=== PATIENT | female | born 1945 | race Caucasian/White ===

== ENCOUNTER 2020-09-11 10:08 | Emergency (ER) | payer MEDICARE ==
[~2020-09-11] VITALS: Ht 157 cm; Wt 90.7 kg
[~2020-09-11 10:08] MED LIST: AC325T PO; ACHYD1T PO; ASP325T PO; ASP81CT PO; ATOR80TA PO; CALC-149 PO; CALTRATE 600 +1 EACH PO; CEPH250C PO; CLOP75TA PO; CPR500T PO; DIPH25TA82 PO; DIPH50CA33 PO; DULO60CA6 PO; ESZO2TAB4 PO; FLC150T PO; FRSM40T PO; FURO20TA4 PO; FURO40TA4 PO; HYDR-2997 PO; HYDR118S10 PO; IBAN150T5 PO; INSU100C SC; INSU100V6 SC; METF500T8 PO; MULT-974 PO; Magnesium Oxide PO; NITR-65 PO; NITR100C PO; OMEG1CAP51 PO; OXYC-12 PO; POTA10CA43 PO; POTA20TA15 PO; PREN-93 PO; PREN1TAB39 PO
--- NOTE | 2020-09-11 11:10 | ED Lower Extremity ---
General Chief Complaint: Trauma-Non Activation Stated Complaint: FALL Nursing Triage Note: PT PRESENTS TO ED FROM HOME WITH COMPLAINTS OF L HIP PAIN AFTER FALLING WHEN SHE TRIPPED WITH HER WALKER GETTING UP TO USE THE RESTROOM. PT REPORTS SHE DID NOT HIT HER HEAD OR HAVE LOC. PT DENIES ANY OTHER PAIN. Nursing Sepsis Screen: No Definite Risk Source: patient, EMS Exam Limitations: no limitations History of Present Illness Date Seen by Provider: Sep 11, 2020 Time Seen by Provider: 10:10 Initial Comments Patient is a 74-year-old female who presents to the emergency department today with a chief complaint of left hip pain after a mechanical trip and fall. Patient states that she was walking with her walker and had an episode where the walker went one way and she went the other and she went down on her knees and finally her left hip. Patient states she did not hit her head or have any loss of consciousness. She complains of pain to the lateral aspect of her left hip. She is able to move and lay on that left side however. She denies any numbness tingling or weakness in her extremities. No recent illnesses. All other review of systems reviewed and negative except as stated. Location Injury Occurred: HOME RESIDENCE Onset: just prior to arrival, this morning Severity: mild Pain/Injury Location: left hip Method of Injury: fell Modifying Factors: Improves With Immobilization; Worse With Movement Allergies and Home Medications Allergies Coded Allergies: morphine (Verified Allergy, Mild, 07/12/14) Sulfa (Sulfonamide Antibiotics) (Verified Allergy, Unknown, 03/15/06) Home Medications Atorvastatin Calcium 80 Mg Tablet, 80 MG PO HS, (Reported) Calcium Carbonate/Vitamin D3 1 Each Tab.chew, 1 EACH PO DAILY, (Reported) Diphenhydramine Hcl 25 Mg Tablet, 100 MG PO HS, (Reported) TAKE 4 (25MG) CAPSULES Furosemide 40 Mg Tablet, 40 MG PO DAILY, (Reported) Hydrocodone Bit/Acetaminophen 1 Tab Tablet, 1-2 TAB PO Q4H MAY TAKE 1 OR 2 TABLETS BY MOUTH EVERY 4 HRS NEEDED FOR PAIN. DO NOT TAKE THIS PRESCRIPTION AND YOUR HOME MED HYDROCODONE/ACETAMINOPHEN. THEY ARE THE SAME MEDICATION Prescribed by: MISSY MCGHEE on 07/31/14 1051 Hydrocodone/Acetaminophen 1 Each Tablet, 1 EACH PO BID PRN for PAIN, (Reported) Insulin Glargine,Hum.rec.anlog 100 Unit/1 Ml Vial, 17 UNITS SC HS, (Reported) Insulin Lispro 100 Unit/1 Ml Cartridge, 20 UNIT SC TID, (Reported) Metformin Hcl 500 Mg Tab.sr.24h, 1,000 EACH PO BID, (Reported) TAKES 2 (500MG) TABLETS Nitrofurantoin/Nitrofuran Mac 100 Mg Capsule, 1 EACH PO BID TAKE ONE CAPSULE BY MOUTH TWICE A DAY. USE ALL OF THIS ANTIBIOTIC PRESCRIBED. Prescribed by: MISSY MCGHEE on 07/31/14 1051 Potassium Chloride 20 Meq Tab.prt.sr, 20 MEQ PO DAILY, (Reported) Vit/Fe Fumarate/Fa 1 Each Tablet, 1 TAB PO DAILY, (Reported) [Magnesium Oxide] 400 MG TAB, 400 MG PO DAILY Prescribed by: MYRA PADILLA on 07/20/14 0936 Patient Home Medication List Home Medication List Reviewed: Yes Review of Systems Constitutional: see HPI EENTM: no symptoms reported Respiratory: no symptoms reported Cardiovascular: no symptoms reported Gastrointestinal: no symptoms reported Genitourinary: no symptoms reported Musculoskeletal: joint pain (Left hip) Skin: no symptoms reported Psychiatric/Neurological: No Symptoms Reported All Other Systems Reviewed Negative Unless Noted: Yes Past Wqgrrfg-Pkbldf-Mouoaz Hx Patient Social History Alcohol Use: Denies Use Smoking Status: Former Smoker Former Smoker, Quit: Jul 11, 2006 Recent Infectious Disease Expo: No Recent Hopitalizations: Yes (UTI'S AND MAYBE PNEUMONIA) Immunizations Up To Date Tetanus Booster (TDap): More than 5yrs PED Vaccines UTD: No Date of Pneumonia Vaccine: Jul 12, 2011 Seasonal Allergies Seasonal Allergies: No Past Medical History Surgeries: Yes (left knee, RENAL STENTS PLACEMENT, ESWL) Coronary Stent, Orthopedic Respiratory: No Cardiac: Yes Coronary Artery Disease, Heart Attack, High Cholesterol, Hypertension Neurological: No Reproductive Disorders: No Sexually Transmitted Disease: No Kidney Stones Gastrointestinal: No Musculoskeletal: Yes Arthritis Endocrine: Yes Diabetes, Non-Insulin dep Cancer: No Psychosocial: No Integumentary: No Blood Disorders: No Adverse Reaction/Blood Tranf: No Family Medical History Cardiovascular disease 19 FATHER (AND LUNG CANCER) Physical Exam Vital Signs Vital Signs - First Documented 09/11/20 10:10 Temp 36.2 Pulse 102 Resp 18 B/P (MAP) 146/73 (97) Pulse Ox 96 Capillary Refill : Less Than 3 Seconds Height, Weight, BMI Height: 5'2.00" Weight: 215lbs. oz. 97.311467te; 36.00 BMI Method:Stated General Appearance: WD/WN, no apparent distress Neck: non-tender, full range of motion Cardiovascular: regular rate, rhythm Respiratory: lungs clear, normal breath sounds, no respiratory distress Gastrointestinal: non tender, soft Hips: left hip soft tissue tenderness (Mild tenderness to palpation along the margin of the left hip) Legs: bilateral leg non-tender, bilateral leg normal inspection, bilateral leg normal range of motion, bilateral leg no evidence of injury Knees: bilateral knee non-tender, bilateral knee normal inspection, bilateral knee normal range of motion, bilateral knee no evidence of injury Ankles: bilateral ankle non-tender, bilateral ankle normal inspection, bilat eral ankle normal range of motion, bilateral ankle no evidence of injury Feet: bilateral foot non-tender, bilateral foot normal inspection, bilateral foot normal range of motion, bilateral foot no evidence of injury Neurologic/Tendon: normal sensation, normal motor functions, normal tendon functions Neurologic/Psychiatric: alert, normal mood/affect, oriented x 3 Skin: normal color, warm/dry Progress/Results/Core Measures Results/Orders My Orders Orders - SCOTT BARFIELD MD Pelvis With Left Hip 2-3 Views (09/11/20 11:09) Vital Signs/I&O 09/11/20 09/11/20 10:10 10:20 Temp 36.2 36.2 Pulse 102 102 Resp 18 16 B/P (MAP) 146/73 (97) 146/73 (97) Pulse Ox 96 96 Blood Pressure Mean: 97 Progress Progress Note : Time: 12:06 Progress Note Patient reevaluated, resting comfortably lying on her left side. No further complaints of injury or pain. Patient x-rays have been reviewed, no evidence of fracture or dislocation of the left hip. Patient has been advised of her x-ray results. All questions are sought and answered. Patient is stable for discharge. Diagnostic Imaging Diagonstic Imaging: Xray Plain Films/CT/US/NM/MRI: pelvis Comments [facility] [place], [place] NAME: CARLITO DELCID I [facility] REC#: [id number] PT STATUS: REG ER : 1945 PHYSICIAN: SCOTT BARFIELD MD ADMIT DATE: 09/11/20/ER Draft Date of Exam:09/11/20 PELVIS WITH LEFT HIP 2-3 VIEWS INDICATION: Left hip pain, fall. TIME OF EXAM: 11:41 AM AP view of the pelvis and 2 views of the left hip were obtained. FINDINGS: Femoroacetabular alignment is normal. Both femoral heads and necks appear to be intact. Rami appear intact. No definite fractures are seen. IMPRESSION: No acute bony abnormality is detected. Dictated on workstation # [id number] Dict: 09/11/20 1147 Trans: 09/11/20 1149 [id number] Interpreted by: CYRUS BOWSER MD Electronically signed by: Departure Impression Primary Impression: Left hip pain Disposition: HOME, SELF-CARE Condition: Stable Departure-Patient Inst. Decision time for Depature: 12:09 Patient Instructions: Hip Pain Add. Discharge Instructions: Take lamb-[id number]-[id number] Tylenol and/or ibuprofen as needed for pain. You can apply an ice pack to your left hip and alternate with heat if need be for pain relief as well. Please follow-up with your primary care provider -keep your appointment as scheduled. Return to the emergency department if you have any worsening complaints of pain or new emergent complaints. All discharge instructions reviewed with patient and/or family. Voiced understanding. SCOTT BARFIELD MD Sep 11, 2020 11:09
--- NOTE | 2020-09-11 11:50 | Diagnostic Imaging Report ---
INDICATION: Left hip pain, fall. TIME OF EXAM: 11:41 AM AP view of the pelvis and 2 views of the left hip were obtained. FINDINGS: Femoroacetabular alignment is normal. Both femoral heads and necks appear to be intact. Rami appear intact. No definite fractures are seen. IMPRESSION: No acute bony abnormality is detected. Dictated by: Dictated on workstation # [id number]
[2020-09-11 12:58] VITALS: BP 167/85
== END 2020-09-11 12:57 | disposition home or self-care (01) ==
LOC: EDUNIT# 10:08 → ER 10:09
DX: M25.552 Pain in left hip (principal); I25.2 Old myocardial infarction; E78.00 Pure hypercholesterolemia, unspecified; E11.9 Type 2 diabetes mellitus without complications; Z88.5 Allergy status to narcotic agent; Z88.2 Allergy status to sulfonamides; Z87.891 Personal history of nicotine dependence; Z95.5 Presence of coronary angioplasty implant and graft; Z80.1 Family history of malignant neoplasm of trachea, bronchus and lung; Z79.84 Long term (current) use of oral hypoglycemic drugs

== ENCOUNTER 2020-09-12 15:39 | Inpatient (IN) | payer MEDICARE ==
[~2020-09-12] VITALS: Ht 157 cm; Wt 84.9 kg
[2020-09-12 16:26] LABS: BASOPHILS % (AUTO) 0 % (0-10); EOSINOPHILS # (AUTO) 0.1 10^3/uL (0.0-0.3); EOSINOPHILS % (AUTO) 1 % (0-10); HEMATOCRIT 39 % (35-52); HEMOGLOBIN 12.7 g/dL (11.5-16.0); LYMPHOCYTES % (AUTO) 26 % (12-44); MEAN CORPUSCULAR HEMOGLOBIN 28 pg (25-34); MEAN CORPUSCULAR HGB CONC 32 g/dL (32-36); MEAN CORPUSCULAR VOLUME 88 fL (80-99); MEAN PLATELET VOLUME 10.1 fL (9.0-12.2); MONOCYTES % (AUTO) 9 % (0-12); NEUTROPHILS # (AUTO) 7.3 X 10^3 (1.8-7.8); NEUTROPHILS % (AUTO) 64 % (42-75); PLATELET COUNT 295 10^3/uL (130-400); WHITE BLOOD COUNT 11.5 10^3/uL (4.3-11.0)
--- NOTE | 2020-09-12 16:35 | Diagnostic Imaging Report ---
INDICATION: Left knee pain. EXAMINATION: Three views of the left knee were obtained. FINDINGS: Narrowing of the medial tibiofemoral joint space with some osteophytes forming at the margins of the articular surface. The lateral joint space is relatively well-preserved as is the patellofemoral joint. 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 Dictated by: Dictated on workstation # [id number]
[2020-09-12 16:37] LABS: POTASSIUM 4.1 MMOL/L (3.6-5.0)
[2020-09-12 16:38] LABS: CALCIUM 9.5 MG/DL (8.5-10.1)
[2020-09-12 16:43] LABS: CREATININE SERUM 1.27 MG/DL (0.60-1.30)
[2020-09-12 16:45] LABS: MAGNESIUM 1.7 MG/DL (1.6-2.4); URIC ACID 6.7 MG/DL (2.6-7.2)
[2020-09-12 16:47] LABS: ERYTHROCYTE SEDIMENTATION RATE 25 MM/HR (0-30)
[2020-09-12] MEDS ORDERED: TRIAMCINOLONE ACET (KENALOG-40) 40 MG/ML 1 ML VIAL IA ONE (17:00)
[2020-09-12] MEDS ORDERED: LIDOCAINE 1% INJ 20 ML 20 ML VIAL INJ ONE (17:00)
--- NOTE | 2020-09-12 17:25 | ED Lower Extremity ---
General Chief Complaint: Lower Extremity Stated Complaint: MOBILITY ISSUES Nursing Triage Note: PT TO ROOM 6 VIA EMS STRETCHER. PT WAS SEEN YESTERDAY FOR FALL X2. PT C/O MOBILITY ISSUES AND LLE/KNEE PAIN. STATES SHE JUST CAN'T GET LEG TO MOVE WELL AND IT IS PAINFUL. Nursing Sepsis Screen: No Definite Risk Source: patient Exam Limitations: no limitations History of Present Illness Date Seen by Provider: Sep 12, 2020 Time Seen by Provider: 15:40 Initial Comments This 74-year-old woman presents to the emergency room with mobility issues after having a fall yesterday. She fell on her left hip and was seen in the emergency room. X-ray of the left hip was unremarkable. Today she complains of her "knees giving out". She was unable to get from her walker to bed and called EMS. She reports history of having numerous aspirations of knee effusion by Dr. Phillips in the past. She reports he also performed steroid injections with the aspirations. She has a small bruise on the superior aspect of her left knee. She has pain with range of motion. The knee appears swollen and warm anteriorly. She takes a full aspirin daily and Plavix. Allergies and Home Medications Allergies Coded Allergies: morphine (Verified Allergy, Mild, 07/12/14) Sulfa (Sulfonamide Antibiotics) (Verified Allergy, Unknown, 03/15/06) Home Medications Atorvastatin Calcium 80 Mg Tablet, 80 MG PO HS, (Reported) Calcium Carbonate/Vitamin D3 1 Each Tab.chew, 1 EACH PO DAILY, (Reported) Diphenhydramine Hcl 25 Mg Tablet, 100 MG PO HS, (Reported) TAKE 4 (25MG) CAPSULES Furosemide 40 Mg Tablet, 40 MG PO DAILY, (Reported) Hydrocodone Bit/Acetaminophen 1 Tab Tablet, 1-2 TAB PO Q4H MAY TAKE 1 OR 2 TABLETS BY MOUTH EVERY 4 HRS NEEDED FOR PAIN. DO NOT TAKE THIS PRESCRIPTION AND YOUR HOME MED HYDROCODONE/ACETAMINOPHEN. THEY ARE THE SAME MEDICATION Prescribed by: MISSY MCGHEE on 07/31/14 1051 Hydrocodone/Acetaminophen 1 Each Tablet, 1 EACH PO BID PRN for PAIN, (Reported) Insulin Glargine,Hum.rec.anlog 100 Unit/1 Ml Vial, 17 UNITS SC HS, (Reported) Insulin Lispro 100 Unit/1 Ml Cartridge, 20 UNIT SC TID, (Reported) Metformin Hcl 500 Mg Tab.sr.24h, 1,000 EACH PO BID, (Reported) TAKES 2 (500MG) TABLETS Nitrofurantoin/Nitrofuran Mac 100 Mg Capsule, 1 EACH PO BID TAKE ONE CAPSULE BY MOUTH TWICE A DAY. USE ALL OF THIS ANTIBIOTIC PRESCRIBED. Prescribed by: MISSY MCGHEE on 07/31/14 1051 Potassium Chloride 20 Meq Tab.prt.sr, 20 MEQ PO DAILY, (Reported) Vit/Fe Fumarate/Fa 1 Each Tablet, 1 TAB PO DAILY, (Reported) [Magnesium Oxide] 400 MG TAB, 400 MG PO DAILY Prescribed by: MYRA PADILLA on 07/20/14 0915 Patient Home Medication List Home Medication List Reviewed: Yes Review of Systems Constitutional: no symptoms reported EENTM: no symptoms reported Respiratory: no symptoms reported Cardiovascular: no symptoms reported Gastrointestinal: no symptoms reported Genitourinary: no symptoms reported : No Musculoskeletal: see HPI Skin: no symptoms reported Psychiatric/Neurological: No Symptoms Reported Past Qshpbfd-Prlgkc-Chvdyi Hx Past Med/Social Hx: Reviewed Nursing Past Med/Soc Hx Patient Social History Alcohol Use: Denies Use Smoking Status: Never a Smoker Former Smoker, Quit: Jul 11, 2006 Recent Infectious Disease Expo: No Recent Hopitalizations: Yes (UTI'S AND MAYBE PNEUMONIA) Immunizations Up To Date Tetanus Booster (TDap): More than 5yrs PED Vaccines UTD: No Date of Pneumonia Vaccine: Jul 12, 2011 Seasonal Allergies Seasonal Allergies: No Past Medical History Surgeries: Yes (left knee, RENAL STENTS PLACEMENT, ESWL) Coronary Stent, Orthopedic Respiratory: No Cardiac: Yes Coronary Artery Disease, Heart Attack, High Cholesterol, Hypertension Neurological: No Reproductive Disorders: No Sexually Transmitted Disease: No Genitourinary: Yes Bladder Infection, Kidney Stones Gastrointestinal: No Musculoskeletal: Yes Arthritis Endocrine: Yes Diabetes, Non-Insulin dep HEENT: No Cancer: No Psychosocial: No Integumentary: No Blood Disorders: No Adverse Reaction/Blood Tranf: No Family Medical History Cardiovascular disease 19 FATHER (AND LUNG CANCER) Physical Exam Vital Signs Vital Signs - First Documented 09/12/20 15:40 Temp 36.1 Pulse 107 Resp 22 B/P (MAP) 152/80 (104) Pulse Ox 95 O2 Delivery Room Air Capillary Refill : Less Than 3 Seconds Height, Weight, BMI Height: 5'2.00" Weight: 215lbs. oz. 97.133917qe; 40.00 BMI Method:Stated General Appearance: WD/WN, no apparent distress HEENT: PERRL/EOMI, normal ENT inspection Neck: normal inspection Cardiovascular: regular rate, rhythm, no edema, no murmur Respiratory: lungs clear, normal breath sounds, no respiratory distress, no accessory muscle use Gastrointestinal: non tender, soft Back: normal inspection Hips: left hip non-tender, left hip normal inspection, left hip normal range of motion, left hip no evidence of injury Legs: left leg non-tender, left leg normal inspection, left leg no evidence of injury Knees: left knee bone tenderness, left knee ecchymosis, left knee joint effusion, left knee pain, left knee swelling, left knee other (pain with ROM) Ankles: left ankle non-tender, left ankle normal inspection, left ankle normal range of motion, left ankle no evidence of injury Neurologic/Tendon: normal sensation, normal motor functions Neurologic/Psychiatric: scale adjuster II-XII nml as tested, alert, normal mood/affect, oriented x 3, motor weakness (generalized) Skin: normal color, warm/dry Progress/Results/Core Measures Results/Orders Lab Results Laboratory Tests Test 09/12/20 16:16 09/12/20 17:00 Range/Units White Blood Count 11.5 H 4.3-11.0 10^3/uL Red Blood Count 4.48 3.80-5.11 10^6/uL Hemoglobin 12.7 11.5-16.0 g/dL Hematocrit 39 35-52 % Mean Corpuscular Volume 88 80-99 fL Mean Corpuscular Hemoglobin 28 25-34 pg Mean Corpuscular Hemoglobin Concent 32 32-36 g/dL Red Cell Distribution Width 14.6 H 10.0-14.5 % Platelet Count 295 130-400 10^3/uL Mean Platelet Volume 10.1 9.0-12.2 fL Immature Granulocyte % (Auto) 0 % Neutrophils (%) (Auto) 64 42-75 % Lymphocytes (%) (Auto) 26 12-44 % Monocytes (%) (Auto) 9 0-12 % Eosinophils (%) (Auto) 1 0-10 % Basophils (%) (Auto) 0 0-10 % Neutrophils # (Auto) 7.3 1.8-7.8 X 10^3 Lymphocytes # (Auto) 3.0 1.0-4.0 X 10^3 Monocytes # (Auto) 1.0 0.0-1.0 X 10^3 Eosinophils # (Auto) 0.1 0.0-0.3 10^3/uL Basophils # (Auto) 0.0 0.0-0.1 10^3/uL Immature Granulocyte # (Auto) 0.0 0.0-0.1 10^3/uL Erythrocyte Sedimentation Rate 25 0-30 MM/HR Sodium Level 140 135-145 MMOL/L Potassium Level 4.1 3.6-5.0 MMOL/L Chloride Level 104 98-107 MMOL/L Carbon Dioxide Level 21 21-32 MMOL/L Anion Gap 15 H 5-14 MMOL/L Blood Urea Nitrogen 21 H 7-18 MG/DL Creatinine 1.27 0.60-1.30 MG/DL Estimat Glomerular Filtration Rate 41 BUN/Creatinine Ratio 17 Glucose Level 239 H 70-105 MG/DL Uric Acid 6.7 2.6-7.2 MG/DL Calcium Level 9.5 8.5-10.1 MG/DL Magnesium Level 1.7 1.6-2.4 MG/DL C-Reactive Protein High Sensitivity 13.08 H 0.00-0.50 MG/DL Urine Color YELLOW Urine Clarity CLOUDY Urine pH 5.0 5-9 Urine Specific [place] >=1.030 1.016-1.022 Urine Protein TRACE H NEGATIVE Urine Glucose (UA) 2+ H NEGATIVE Urine Ketones TRACE H NEGATIVE Urine Nitrite NEGATIVE NEGATIVE Urine Bilirubin NEGATIVE NEGATIVE Urine Urobilinogen 0.2 < = 1.0 MG/DL Urine Leukocyte Esterase TRACE H NEGATIVE Urine RBC (Auto) 1+ H NEGATIVE Urine RBC 2-5 H /HPF Urine WBC 5-10 H /HPF Urine Crystals PRESENT H /LPF Urine Amorphous Sediment MOD JENNIFER URATES H /LPF Urine Bacteria LARGE H /HPF Urine Casts NONE /LPF Urine Mucus NEGATIVE /LPF Urine Culture Indicated YES My Orders Orders - MARILYN GASPAR MD Basic Metabolic Panel (09/12/20 15:48) Cbc With Automated Diff (09/12/20 15:48) Hs C Reactive Protein (09/12/20 15:48) Magnesium (09/12/20 15:48) Erythrocyte Sedimentation Rate (09/12/20 15:48) Ed Iv/Invasive Line Start (09/12/20 15:48) Uric Acid (09/12/20 15:48) Knee, Left, 3 Views (09/12/20 15:48) Triamcinolone Acetonide Im (Kenalog-40) (09/12/20 17:00) Lidocaine 1% Inj 20 Ml (Xylocaine 1% Inj (09/12/20 17:00) Hydrocodone/Apap 5/325 Tablet (Lortab 5 (09/12/20 17:30) Ua Culture If Indicated (09/12/20 17:25) Urine Culture (09/12/20 17:00) Ceftriaxone For Iv Use (Rocephin For I (09/12/20 18:15) Ns Iv 1000 Ml (Sodium Chloride 0.9%) (09/12/20 18:15) Medications Given in ED Current Medications Medications Dose Ordered Sig/Sahra Route Start Time Stop Time Status Last Admin Dose Admin Acetaminophen/ Hydrocodone Bitart 1 tab ONCE ONCE PO 09/12/20 17:30 09/12/20 17:31 DC 09/12/20 17:37 1 TAB Ceftriaxone Sodium 1000 mg/ Sterile Water 10 ml @ 200 mls/hr ONCE ONCE IV 09/12/20 18:15 09/12/20 18:17 DC 09/12/20 18:26 200 MLS/HR Lidocaine HCl 20 ml ONCE ONCE INJ 09/12/20 17:00 09/12/20 17:01 DC 09/12/20 17:29 4 ML Vital Signs/I&O 09/12/20 15:40 Temp 36.1 Pulse 107 Resp 22 B/P (MAP) 152/80 (104) Pulse Ox 95 O2 Delivery Room Air Blood Pressure Mean: 104 Progress Progress Note #1: Time: 17:27 Progress Note Labs and x-ray were obtained. X-ray revealed no fractures or dislocations. CRP was elevated and uric acid was normal. Attempt was made at aspiration of the left knee joint using the superior lateral approach. Informed consent was obtained. Skin was prepped with alcohol, anesthetized with lidocaine, and then prepped with Betadine. Using an 18-gauge needle in the joint space was approached. No synovial fluid could be aspirated. A small amount of thick clot was aspirated bleeding this provider to believe the swelling, heat, and pain of the left knee is due to hemarthrosis. Aspiration was also attempted by Grady Whitfield NP. Urine specimen appeared cloudy and may be the source of her increased CRP. Hydrocodone was administered for pain. Progress Note #2: Time: 19:09 Progress Note Despite improvement in pain after hydrocodone, patient is still not able to satisfactorily bear weight and ambulate with a walker. She required 2 person assist to get out of bed and back into bed. She also seems to be getting a little bit confused as we get into the evening hours. It is evident that she cannot safely return home, especially with dual antiplatelet therapy on board. She reports her is self-sufficient and caring for himself but he cannot help her transfer or lift her. Admission is now necessary. She does not appear to need a trauma consultation as there are no serious injuries that require trauma surgeon evaluation at this time. Rocephin was given for treatment of urinary tract infection. Urine specific gravity was high and ketones were present in the urine. Therefore a liter of IV fluid was administered. Diagnostic Imaging Diagonstic Imaging: Xray Plain Films/CT/US/NM/MRI: knee Comments Left knee x-ray viewed by me and report reviewed. See report below: NAME: CARLITO DELCID I [facility] REC#: [id number] PT STATUS: REG ER : 1945 PHYSICIAN: MARILYN GASPAR MD ADMIT DATE: 09/12/20/ER Signed Date of Exam:09/12/20 KNEE, LEFT, 3 VIEWS INDICATION: Left knee pain. EXAMINATION: Three views of the left knee were obtained. FINDINGS: Narrowing of the medial tibiofemoral joint space with some osteophytes forming at the margins of the articular surface. The lateral joint space is relatively well-preserved as is the patellofemoral joint. 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 Dictated by: Dictated on workstation # [id number] Dict: 09/12/20 1609 Trans: 09/12/201652 PJE [id number] Interpreted by: ZHANE DE LA PAZ MD Electronically signed by: ZHANE DE LA PAZ MD 09/12/20 [id number] Departure Communication (Admissions) Time/Spoke to Admitting Phy: 19:00 Dr. Fajardo Impression Primary Impression: Urinary tract infection Qualified Codes: N39.0 - Urinary tract infection, site not specified Additional Impressions: Hemarthrosis, left knee Multiple falls Generalized weakness Altered mental status Qualified Codes: R41.82 - Altered mental status, unspecified Disposition: ADMITTED INPATIENT Condition: Stable Admissions Decision to Admit Reason: Admit from ER (General) Decision to Admit/Date: Sep 12, 2020 Time/Decision to Admit Time: 18:55 Copy Copies To 1: AGATHA HITCHCOCK JOSHUA T MD Sep 12, 2020 17:25
[2020-09-12] MEDS ORDERED: HYDROcodone/APAP 5 MG/325 MG (LORTAB) TAB PO ONE (17:30)
[2020-09-12 17:37] LABS: BILIRUBIN,URINE NEGATIVE (NEGATIVE); CLARITY,URINE CLOUDY; COLOR,URINE YELLOW; GLUCOSE, URINE (UA) 2+ (NEGATIVE); KETONES,URINE TRACE (NEGATIVE); LEUKOCYTE ESTERASE ,URINE TRACE (NEGATIVE); NITRITE,URINE NEGATIVE (NEGATIVE); PROTEIN,URINE TRACE (NEGATIVE)
[2020-09-12 18:05] LABS: AMORPHOUS SEDIMENT,UR MOD AMOR URATES /LPF; BACTERIA,URINE LARGE /HPF
[2020-09-12] MEDS ORDERED: cefTRIAXone FOR IV USE 1,000 MG in WATER (STERILE) FOR INJECTION 10 ML IV ONE (18:15)
[2020-09-12] MEDS ORDERED: NS IV 1000 ML 1,000 ML IV SCH (18:15)
--- NOTE | 2020-09-12 19:05 | NUR ---
PT ASKED TO CALL AND NOTIFY HER THAT SHE WAS GOING TO BE ADMITTED. SPOKE WITH THE AND MADE HIM AWARE OF HER ADMISSION.
--- NOTE | 2020-09-12 19:30 | NUR ---
CARLITO DELCID I admitted to room 414-1, with an admitting diagnosis of UTI, Hemarthrosis, Multiple falls, weakness, on 09/12/20 from ER via bed, accompanied by ED staff. CARLITO DELCID I introduced to surroundings, call light, bed controls, phone, TV, temperature control, lights, meal times, smoking policy, visitor policy, side rail policy, bathrooms and showers. Patient Rights given to patient in the handbook. CARLITO DELCID verbalizes understanding that [facility] is not responsible for the loss or damage to any personal effects or valuables that are kept in the patients possession during their hospitalization.
[2020-09-12 19:45] VITALS: BP 155/85
[2020-09-12] MEDS ORDERED: CATHETER FLUSH 10 ML SYR IV PRN (20:00)
[2020-09-12] MEDS: CATHETER FLUSH 10 ML SYR IV SCH (20:52)
[2020-09-13 00:45] VITALS: BP 148/83
[2020-09-13] MEDS: HYDROcodone/APAP 5 MG/325 MG (LORTAB) TAB PO PRN ×3 (02:57→19:47)
[2020-09-13] MEDS ORDERED: CLOP75TA28 PO (03:11)
[2020-09-13 04:00] VITALS: BP 100/50
[2020-09-13] MEDS: CATHETER FLUSH 10 ML SYR IV SCH ×3 (05:06→21:12)
--- NOTE | 2020-09-13 06:25 | NUR ---
Attempted to call (Andrea) to verify home medications, but there was no answer.
[2020-09-13] MEDS ORDERED: ATOR40TA PO (06:29)
[2020-09-13 06:32] LABS: POTASSIUM 4.4 MMOL/L (3.6-5.0)
[2020-09-13 06:34] LABS: CALCIUM 9.1 MG/DL (8.5-10.1)
[2020-09-13 06:38] LABS: CREATININE SERUM 1.21 MG/DL (0.60-1.30)
[2020-09-13 08:00] VITALS: BP 106/65
[2020-09-13] MEDS ORDERED: CLOPIDOGREL 75 MG (PLAVIX) TABLET PO SCH (09:00)
--- NOTE | 2020-09-13 09:15 | NUR ---
LORTAB PO FOR PAIN.
[2020-09-13] MEDS: metFORMIN 500 MG (GLUCOPHAGE) TAB PO SCH ×2 (09:18→18:33)
[2020-09-13] MEDS: MELOXICAM 7.5 MG (MOBIC) TABLET PO SCH (09:19)
[2020-09-13] MEDS: inSUlin ASPART (NovoLOG) 1 UNIT/0.01 ML (CHARGE PER UNIT) SC SCH ×3 (11:08→21:12)
[2020-09-13 11:52] VITALS: BP 123/56
--- NOTE | 2020-09-13 12:12 | History & Physical-Hospitalist ---
History of Present Illness HPI/Chief Complaint This 74-year-old woman presents to the emergency room with mobility issues after having a fall yesterday. She fell on her left hip and was seen in the emergency room. X-ray of the left hip was unremarkable. Today she complains of her "knees giving out". She was unable to get from her walker to bed and called EMS. She reports history of having numerous aspirations of knee effusion by Dr. Phillips in the past. She reports he also performed steroid injections with the aspirations. She has a small bruise on the superior aspect of her left knee. She has pain with range of motion. The knee appears swollen and warm anteriorly. She takes a full aspirin daily and Plavix Upon my arrival the morning the patient was feeling little bit better. She reported that she did not have any more pain then her normal arthritis pain in the right knee prior to her fall nor does she think it was warm or hot prior to her fall. She denies night sweats chills or fever. She had a depressed affect. 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 Date Seen 09/13/20 Time Seen by a Provider: 07:30 Attending Physician Ifrah Cobb MD PCP No,Local Physician Referring Physician Date of Admission Sep 12, 2020 at 19:08 Home Medications & Allergies Home Medications Reviewed patient Home Medication Reconciliation performed by pharmacy medication reconciliations database software technician and/or nursing. Patients Allergies have been reviewed. Allergies Allergies Coded Allergies morphine (Verified Allergy, Mild, 07/12/14) Sulfa (Sulfonamide Antibiotics) (Verified Allergy, Unknown, 03/15/06) Past Clgxiyt-Jwdcmq-Olbtwv Hx Past Med/Social Hx: Reviewed Nursing Past Med/Soc Hx, Reviewed and Corrections made Patient Social History Alcohol Use: Denies Use Recreational Drug Use: No Smoking Status: Never a Smoker Former Smoker, Quit: Jul 11, 2006 Recent Foreign Travel: No Contact w/other who traveled: No Recent Hopitalizations: Yes (UTI'S AND MAYBE PNEUMONIA) Recent Infectious Disease Expo: No Immunizations Up To Date Tetanus Booster (TDap): More than 5yrs Pediatric: No Date of Pneumonia Vaccine: Jul 12, 2011 Date of Influenza Vaccine: Apr 22, 2021 Seasonal Allergies Seasonal Allergies: No Past Medical History Surgeries: Coronary Stent, Orthopedic Cardiac: Coronary Artery Disease, Heart Attack, High Cholesterol, Hypertension Reproductive: No Sexually Transmitted Disease: No Genitourinary: Bladder Infection, Kidney Stones Musculoskeletal: Arthritis Endocrine: Diabetes, Non-Insulin dep History of Blood Disorders: No Adverse Reaction to Blood Polanco: No Family History Cardiovascular disease 19 FATHER (AND LUNG CANCER) Review of Systems Constitutional: see HPI Physical Exam Physical Exam Vital Signs Vital Signs - First Documented 09/12/20 15:40 Temp 36.1 Pulse 107 Resp 22 B/P (MAP) 152/80 (104) Pulse Ox 95 O2 Delivery Room Air Capillary Refill : Less Than 3 SecondsLess Than 3 Seconds Height, Weight, BMI Height: 5'2.00" Weight: 215lbs. oz. [id number]; 34.44 BMI Method:Stated General Appearance: No Apparent Distress, Obese Respiratory: Chest Non Tender, Lungs Clear, Normal Breath Sounds, No Accessory Muscle Use, No Respiratory Distress Cardiovascular: Regular Rate, Rhythm, No Edema, No Gallop, No JVD, No Murmur, Normal Peripheral Pulses Gastrointestinal: Normal Bowel Sounds, No Organomegaly, No Pulsatile Mass, Non Tender, Soft Extremity: Other (Right knee reveals mild warmth minimal swelling no ecchymosis or erythema only mild tenderness over the lateral and medial joint line. No cyanosis clubbing or edema distal dorsalis pedis pulses 2+ and symmetrical) Neurologic/Psychiatric: Alert, Oriented x3, Depressed Affect Results Results/Procedures Labs Laboratory Tests 09/12/20 16:16 09/13/20 05:50 Patient resulted labs reviewed. Assessment/Plan Admission Diagnosis 1. Urinary tract infection growing gram-negative rods continue Rocephin no evidence for sepsis at this time. 2. 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 Per emergency room physician 2 attempts at joint aspiration when he felt he was clearly in the joint only led to a very small clot being withdrawn septic joint much less likely especially in light of lack of inflammatory change this morning. We will continue to monitor however and continue Rocephin. 3. Poorly controlled type 2 diabetes I suspect aggravated by depression. Patient reports the loss of a child which may be the underlying factor. We will discuss this in more detail with the patient tomorrow. Will initiate 15 units of Levemir tonight and for now sliding scale insulin with 1500-calorie ADA diet. Admission Status: Inpatient Order (span 2 midnights) Reason for Inpatient Admission: See admission diagnosis IFRAH COBB MD Sep 13, 2020 12:12
--- NOTE | 2020-09-13 12:35 | Physical Therapy Evaluation ---
PT Evaluation-General Medical Diagnosis Admission Date Sep 12, 2020 at 19:08 Medical Diagnosis: hemarthrosis, UTI, multiple falls Onset Date: Sep 12, 2020 Therapy Diagnosis Therapy Diagnosis: decreased functional mobility Height/Weight Height (Feet): 5 Height (Inches): 2.00 Weight (Pounds): 215 Precautions Precautions/Isolations: Fall Prevention, Standard Precautions Weight Bear Status Right Lower Extremity: Right Full Weight Bearing Left Lower Extremity: Left Weight Bearing/Tolerated Referral Physician: Tana Reason for Referral: Evaluation/Treatment Medical History Pertinent Medical History: Arthritis, CAD, DM, NM Additional Medical History (L) knee Sx, renal stent placement, ESWL, coronary stent, high cholesterol, bladder infection, kidney stones Current History Pt reports a fall in the [place] on 09/11/2020. To ER on 09/11/2020 with (L) hip x-ray unremarkable. Reports she fell again on her stairs after discharge home due to "knee giving out". Presented again to ER on 09/12/2020 with mobility c/o after the falls. (L) knee x-ray revealed moderate degenerative changes in medial compartment. Does present with edema. Reports history of (L) knee injections and having fluid removed from (L) knee. Reviewed History: Yes Social History Home: Single Level Current Living Status: Spouse Entry Into Home: Stairs With Railing PT Steps Into Home: 2 Prior Prior Level of Function SCALE: Activities may be completed with or without assistive devices. 1-Cwzcpzwkbh-sppffdk completes the activity by him/herself with no assistance from a helper. 5-Set-up or Clean-up Assistance-helper sets up or cleans up; patient completes activity. [place] assists only prior to or following the activity. 4-Supervision or Touching Assistance-helper provides verbal cues and/or touching/steadying and/or contact guard assistance as patient completes ac tivity. Assistance may be provided throughout the activity or intermittently. 3-Partial/Moderate Assistance-helper does LESS THAN HALF the effort. [place] lifts, holds or supports trunk or limbs, but provides less than half the effort. 2-Substantial/Maximal Assistance-helper does MORE THAN HALF the effort. [place] lifts or holds trunk or limbs and provides more than half the effort. 1-Fnqkkfdun-uldduo does ALL the effort. Patient does none of the effort to complete the activity. Or, the assistance of 2 or more helpers is required for the patient to complete the activity. If activity was not attempted, code reason: 7-Patient Refused. 9-Not Applicable-not attempted and the patient did not perform the activity before the current illness, exacerbation or injury. 10-Not Attempted due to Environmental Limitations-(lack of equipment, weather restraints, etc.). 88-Not Attempted due to Medical Conditions or Safety Concerns. Bed Mobility: 6 Transfers (B,C,W/C): 6 Gait: 6 Stairs: 6 Indoor Mobility (Ambulation): Independent Stairs: Independent Prior Devices Use: Walker Prior Device Use: 4WW inside and outside the home PT Evaluation-Current Subjective Pt in bed, agreeable. Reports 9/10 (L) knee pain. Pt moving very slowly, repeatedly stating, "Wait, give me a minute". Objective Patient Orientation: Person, Place, Time, Situation ROM/Strength ROM Upper Extremities Grossly WFL for mobility ROM Lower Extremities Grossly WFL for transfers. Guards motion in (L) knee Strength Upper Extremities Grossly 3+/5 Strength Lower Extremities Grossly 3/5, no resistance applied due to guarding, high pain rating. Integumentary/Posture Integumentary See nurses' notes Posture Kyphotic Sensory Vision: Functional Hearing: Functional Transfers Lying to Sitting/Side of Bed(Q: 3 Sit to Stand (QC): 3 Chair/Huj-ja-Tybng Xfer(QC): 4 Sit<->stand mod A x 1 to FWW with max encouragement, VCS. Pt attempts to stop and return to sit mid transfer. Once up, Pt leans forearms on FWW, max VCS for upright posture and to appropriately utilize FWW to decrease WB on (L) LE. Small, shuffling steps to chair. VCS but only min A x for safety. Up in chair with chair alarm activated, NA notified of mobility status. Gait Does the Patient Walk?: Yes Mode of Locomotion: Walk Anticipated Mode of Locomotion: Walk Walk 10 feet (QC): 7 Walk 50 ft with 2 Turns(QC): 7 Walk 150 ft (QC): 7 Walking 10ft/uneven surface-QC: 7 Distance: 2 Gait Assistive Device: FWW Comments/Gait Description bed->Chair Transfer Wheelchair Training Does the Pt Use a Wheelchair?: No Type of Wheelchair: N/A Balance Sitting Static: Normal Sitting Dynamic: Good Standing Static: Fair Standing Dynamic: Fair Treatment Transfer training with FWW. Up in chair with alarm activated. Assessment/Needs Pt would benefit from skilled PT to increase functional strength and (I) with functional mobility. Pt significantly self-limits due to knee pain. Rehab Potential: Fair PT Short Term Goals Short Term Goals Time Frame: Sep 17, 2020 Roll Left & Right: 6 Sit to lyin Lying to sitting on side of be: 6 Sit to stand: 6 PT Truck Caterer Goals Truck Caterer Goals PT Truck Caterer Goals Time Frame: Sep 27, 2020 Roll Left & Right (QC): 6 Sit to Lying (QC): 6 Lying-Sitting on Side/Bed(QC): 6 Sit to Stand (QC): 6 Chair/Ozs-vj-Kwctk Xfer(QC): 6 Toilet Transfer (QC): 6 Car Transfer (QC): 4 Does the Patient Walk: No and Walking Goal IS indicated Walk 10 feet (QC): 6 Walk 50ft with 2 Turns (QC): 6 Walk 150 ft (QC): 6 Walking 10ft on Uneven Surface: 6 1 Step (curb) (QC): 4 4 Steps (QC): 4 12 Steps (QC): 9 Does the Pt use WC or Scooter?: No Type: N/A Type: N/A PT LTGs established to allow return home. PT Plan Problem List Problem List: Activity Tolerance, Functional Strength, Safety, Balance, Gait, Transfer, Bed Mobility, ROM Treatment/Plan Treatment Plan: Continue Plan of Care Treatment Plan: Bed Mobility, Education, Functional Activity [place], Functional Strength, Gait, Safety, Therapeutic Exercise, Transfers Treatment Duration: Sep 27, 2020 Frequency: 6 times per week Estimated Hrs Per Day: .25 hour per day Patient and/or Family Agrees t: Yes Safety Risks/Education Patient Education: Transfer Techniques Teaching Recipient: Patient Teaching Methods: Discussion Response to Teaching: Reinforcement Needed Discharge Recommendations Barriers to Progress Pt self limits due to knee pain Time/GCodes Time In: 826 Time Out: 903 Total Billed Treatment Time: 37 Total Billed Treatment 1, EVHIGH x 20', FA x 17' PILO DIAZ DPDwight Sep 13, 2020 12:35
[2020-09-13 16:15] VITALS: BP 110/55
[2020-09-13] MEDS: cefTRIAXone FOR IV USE 1,000 MG in WATER (STERILE) FOR INJECTION 10 ML IV SCH (18:33)
[2020-09-13 20:05] VITALS: BP 113/55
[2020-09-13] MEDS ORDERED: LANTUS 15 UNIT SQ SCH (21:00)
[2020-09-14] VITALS (7 sets, daily range): BP systolic 88–131; BP diastolic 54–64
[2020-09-14] MEDS: inSUlin ASPART (NovoLOG) 1 UNIT/0.01 ML (CHARGE PER UNIT) SC SCH ×4 (05:37→20:17)
[2020-09-14] MEDS: CATHETER FLUSH 10 ML SYR IV SCH ×3 (06:37→20:30)
[2020-09-14] MEDS: metFORMIN 500 MG (GLUCOPHAGE) TAB PO SCH ×2 (08:46→17:51)
[2020-09-14] MEDS: HYDROcodone/APAP 5 MG/325 MG (LORTAB) TAB PO PRN (08:46)
[2020-09-14] MEDS: MELOXICAM 7.5 MG (MOBIC) TABLET PO SCH (08:46)
--- NOTE | 2020-09-14 10:57 | Progress Note - Hospitalist ---
Subjective HPI/CC On Admission Date Seen by Provider: Sep 14, 2020 Time Seen by Provider: 09:30 This 74-year-old woman presents to the emergency room with mobility issues after having a fall yesterday. She fell on her left hip and was seen in the emergency room. X-ray of the left hip was unremarkable. Today she complains of her "knees giving out". She was unable to get from her walker to bed and called EMS. She reports history of having numerous aspirations of knee effusion by Dr. Phillips in the past. She reports he also performed steroid injections with the aspirations. She has a small bruise on the superior aspect of her left knee. She has pain with range of motion. The knee appears swollen and warm anteriorly. She takes a full aspirin daily and Plavix Upon my arrival the morning the patient was feeling little bit better. She reported that she did not have any more pain then her normal arthritis pain in the right knee prior to her fall nor does she think it was warm or hot prior to her fall. She denies night sweats chills or fever. She had a depressed affect. 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 Subjective/Events-last exam Patient reports knee pain about the same does not bother her much at rest but with range of motion or weightbearing is significant. Patient depressed in appearance with flat affect. She voices no other complaints. Objective Exam Vital Signs Vital Signs Date Time Temp Pulse Resp B/P (MAP) Pulse Ox O2 Delivery O2 Flow Rate FiO2 09/14/20 08:15 96 Nasal Cannula 2.00 09/14/20 08:00 35.8 88 20 119/56 (77) Capillary Refill : Less Than 3 SecondsLess Than 3 Seconds General Appearance: No Apparent Distress Respiratory: Chest Non Tender, Lungs Clear, Normal Breath Sounds, No Accessory Muscle Use, No Respiratory Distress Cardiovascular: Regular Rate, Rhythm, No Edema, No Gallop, No JVD, No Murmur, Normal Peripheral Pulses Gastrointestinal: Normal Bowel Sounds, No Organomegaly, No Pulsatile Mass, Non Tender, Soft Extremity: Other (Mild left knee swelling with mild increase in warmth no evidence for erythema unchanged from yesterday) Results/Procedures Lab Patient resulted labs reviewed. Assessment/Plan Assessment and Plan Assess & Plan/Chief Complaint 1. Urinary tract infection growing gram-negative rods continue Rocephin no evidence for sepsis at this time. 2. 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 Per emergency room physician 2 attempts at joint aspiration when he felt he was clearly in the joint only led to a very small clot being withdrawn septic joint much less likely especially in light of lack of inflammatory change this morning. We will continue to monitor however and continue Rocephin. Will consult orthopedics in the morning 3. Poorly controlled type 2 diabetes I suspect aggravated by depression. Patient reports the loss of a child which may be the underlying factor. We will discuss this in more detail with the patient tomorrow. Hospital blood sugar control has been reasonable thus far continue 15 units of Levemir at bedtime. IFRAH COBB MD Sep 14, 2020 10:57
[2020-09-14] MEDS: cefTRIAXone FOR IV USE 1,000 MG in WATER (STERILE) FOR INJECTION 10 ML IV SCH (17:51)
[2020-09-15] MEDS: HYDROcodone/APAP 5 MG/325 MG (LORTAB) TAB PO PRN ×3 (01:19→21:54)
[2020-09-15 04:36] VITALS: BP 125/59
[2020-09-15] MEDS: inSUlin ASPART (NovoLOG) 1 UNIT/0.01 ML (CHARGE PER UNIT) SC SCH ×4 (05:50→21:50)
[2020-09-15] MEDS: CATHETER FLUSH 10 ML SYR IV SCH ×3 (05:51→21:56)
[2020-09-15 05:55] LABS: BASOPHILS % (AUTO) 0 % (0-10); EOSINOPHILS # (AUTO) 0.5 10^3/uL (0.0-0.3); EOSINOPHILS % (AUTO) 5 % (0-10); HEMATOCRIT 35 % (35-52); HEMOGLOBIN 11.3 g/dL (11.5-16.0); LYMPHOCYTES # (AUTO) 2.8 10^3/uL (1.0-4.0); LYMPHOCYTES % (AUTO) 31 % (12-44); MEAN CORPUSCULAR HEMOGLOBIN 29 pg (25-34); MEAN CORPUSCULAR HGB CONC 32 g/dL (32-36); MEAN CORPUSCULAR VOLUME 89 fL (80-99); MEAN PLATELET VOLUME 10.8 fL (9.0-12.2); MONOCYTES % (AUTO) 11 % (0-12); NEUTROPHILS # (AUTO) 4.7 10^3/uL (1.8-7.8); NEUTROPHILS % (AUTO) 52 % (42-75); PLATELET COUNT 260 10^3/uL (130-400)
[2020-09-15 06:06] LABS: ALBUMIN 3.3 GM/DL (3.2-4.5); POTASSIUM 4.2 MMOL/L (3.6-5.0)
[2020-09-15 06:08] LABS: CALCIUM 9.1 MG/DL (8.5-10.1)
[2020-09-15 06:09] LABS: TOTAL PROTEIN 6.2 GM/DL (6.4-8.2)
[2020-09-15 06:11] LABS: BILIRUBIN,TOTAL 0.4 MG/DL (0.1-1.0)
[2020-09-15 06:12] LABS: CREATININE SERUM 1.28 MG/DL (0.60-1.30)
--- NOTE | 2020-09-15 07:36 | NUR ---
LEFT MESSAGE ON SR SIMS'S CELL PHONE WITH CONSULT FOR TRAUMATIC ARTHRITIS FROM DR COBB.
[2020-09-15] MEDS: MELOXICAM 7.5 MG (MOBIC) TABLET PO SCH (08:07)
[2020-09-15] MEDS: metFORMIN 500 MG (GLUCOPHAGE) TAB PO SCH ×2 (08:07→17:33)
[2020-09-15 08:30] VITALS: BP 111/65
--- NOTE | 2020-09-15 09:32 | Consultation - Ortho ---
Consult - Ortho Subjective Date of Exam 09/15/20 Chief Complaint Left knee pain HPI/Events since last exam Mrs. Landon is a 74-year-old white female who initially fell on 09/11. She is seen in the ER complaining of left hip pain. X-rays were negative for fracture. She was discharged and then the next day 09/12 she was complaining of severe left knee pain and was unable to bear weight. She was again seen in the emergency room where she is evaluated and x-rayed noted to have no fractures, but severe arthritic changes were noted on the x-ray. The ER providers attempted aspiration and only obtained a small amount of blood. It appears that she did get an injection of Kenalog into her knee though. She was admitted due to inability to ambulate on the left leg. She continues with left knee pain. She does have a history of arthritis in both knees having been injected by Dr. Phillips but she states several years ago. She does ambulate with a walker. Medical, Surgical History Reviewed and no additions or changes Social History Reviewed and no additions or changes Family History Reviewed and no additions or changes Review of Systems Reviewed and no additions or changes Allergies: Coded Allergies: morphine (Verified Allergy, Mild, 07/12/14) Sulfa (Sulfonamide Antibiotics) (Verified Allergy, Unknown, 03/15/06) Home Meds Active Scripts [Magnesium Oxide] 400 MG TAB No Conflict Check, 400 MG PO DAILY, #30 TAB 0 Refills Prov:MYRA PADILLA MD 07/20/14 Reported Medications Atorvastatin Calcium (Lipitor) 40 Mg Tablet, 40 MG PO DAILY 09/13/20 Clopidogrel Bisulfate (Clopidogrel) 75 Mg Tablet, 75 MG PO DAILY 09/13/20 Vit/Fe Fumarate/Fa ( Multivitamins Tablet) 1 Each Tablet, 1 TAB PO DAILY 07/12/14 Potassium Chloride (Potassium Chloride) 20 Meq Tab.prt.sr, 20 MEQ PO DAILY 07/12/14 Furosemide (Furosemide) 40 Mg Tablet, 40 MG PO DAILY 07/12/14 Calcium Carbonate/Vitamin D3 (Caltrate 600 + D Chewable Tab) 1 Each Tab.chew, 1 EACH PO DAILY 11/14/12 Diphenhydramine Hcl (Diphenhydramine 25 Mg) 25 Mg Tablet, 100 MG PO HS TAKE 4 (25MG) CAPSULES 03/22/10 Insulin Glargine,Hum.rec.anlog (Lantus) 100 Unit/1 Ml Vial, 17 UNITS SC HS 03/22/10 Insulin Lispro (Humalog) 100 Unit/1 Ml Cartridge, 20 UNIT SC TID 03/22/10 Metformin Hcl (Metformin Er 500MG) 500 Mg Tab.sr.24h, 1000 EACH PO BID TAKES 2 (500MG) TABLETS 01/27/10 Discontinued Reported Medications Hydrocodone/Acetaminophen (Hydrocodon-Acetamin 7.5-325/15) 1 Each Tablet, 1 EACH PO BID PRN for PAIN, TAB 04/18/14 Atorvastatin Calcium (Lipitor 80MG) 80 Mg Tablet, 80 MG PO HS 01/27/10 Discontinued Scripts Hydrocodone Bit/Acetaminophen (Lorcet Plus 10/325 Mg) 1 Tab Tablet, 1-2 TAB PO Q4H for Pain, #30 TAB MAY TAKE 1 OR 2 TABLETS BY MOUTH EVERY 4 HRS NEEDED FOR PAIN. DO NOT TAKE THIS PRESCRIPTION AND YOUR HOME MED HYDROCODONE/ACETAMINOPHEN. THEY ARE THE SAME MEDICATION Prov:JANY MAHAN MD 07/31/14 Nitrofurantoin/Nitrofuran Mac (Macrobid) 100 Mg Capsule, 1 EACH PO BID, #14 CAP TAKE ONE CAPSULE BY MOUTH TWICE A DAY. USE ALL OF THIS ANTIBIOTIC PRESCRIBED. Prov:JANY MAHAN MD 07/31/14 Objective Exam Constitutional: [] HEENT: [] Neck: [] Cardiovascular: [] Respiratory: [] Gastrointestinal: [] Genitourinary: [] Skin: [] Back/Spine: [] Extremities: [No pain with range of motion left hip. No pain with palpation. She holds her knee in about 45 of flexion. She has a mild effusion. No redness or warmth. No calf tenderness negative Homans. Any motion knee causes increased pain. I was able to get her out to about 10 of flexion and it appears she has a 10 flexion contracture. I was able to flex her up to 90 with increasing pain. There is no instability of the knee throughout range of motion from 10-90. She has joint line pain as well as patellofemoral pain. No pain with range of motion ankle. No deformity. She states she has normal sensation to her foot and toes] Neurologic: [] Psychiatric: [] Hematologic/lymphatic/immunologic: [] Vital Signs Vital Signs Date Time Temp Pulse Resp B/P (MAP) Pulse Ox O2 Delivery O2 Flow Rate FiO2 09/15/20 08:30 35.6 84 24 111/65 (80) 97 Nasal Cannula 2.00 09/15/20 04:36 35.9 86 19 125/59 (81) 97 Nasal Cannula 2.00 09/14/20 23:58 35.8 90 18 131/64 (86) 97 Nasal Cannula 2.00 09/14/20 19:30 Nasal Cannula 2.00 09/14/20 19:19 35.9 91 18 118/58 (78) 96 Nasal Cannula 2.00 09/14/20 15:51 35.7 89 18 106/60 (75) 90 Room Air 09/14/20 12:00 35.1 83 20 109/59 (76) 94 Nasal Cannula 2.00 09/14/20 12:00 Nasal Cannula 2.00 I & O 09/15/20 06:59 Intake Total 1170 ml Balance 1170 ml Lab Results Laboratory Tests 09/14/20 10:58: Glucometer 112H 09/14/20 15:55: Glucometer 118H 09/14/20 20:13: Glucometer 157H 09/15/20 05:41: Glucometer 84 09/15/20 05:42: White Blood Count 9.0, Red Blood Count 3.97, Hemoglobin 11.3L, Hematocrit 35, Mean Corpuscular Volume 89, Mean Corpuscular Hemoglobin 29, Mean Corpuscular Hemoglobin Concent 32, Red Cell Distribution Width 14.6H, Platelet Count 260, Mean Platelet Volume 10.8, Immature Granulocyte % (Auto) 0, Neutrophils (%) (Auto) 52, Lymphocytes (%) (Auto) 31, Monocytes (%) (Auto) 11, Eosinophils (%) (Auto) 5, Basophils (%) (Auto) 0, Neutrophils # (Auto) 4.7, Lymphocytes # (Auto) 2.8, Monocytes # (Auto) 1.0, Eosinophils # (Auto) 0.5H, Basophils # (Auto) 0.0, Immature Granulocyte # (Auto) 0.0, Sodium Level 137, Potassium Level 4.2, Chloride Level 106, Carbon Dioxide Level 20L, Anion Gap 11, Blood Urea Nitrogen 32H, Creatinine 1.28, Estimat Glomerular Filtration Rate 41, BUN/Creatinine Ratio 25, Glucose Level 84, Calcium Level 9.1, Corrected Calcium 9.7, Total Bilirubin 0.4, Aspartate Amino Transf (AST/SGOT) 26, Alanine Aminotransferase (ALT/SGPT) 21, Alkaline Phosphatase 73, Total Protein 6.2L, Albumin 3.3 Microbiology 09/12/20 Urine Culture - Preliminary, Resulted Escherichia coli Klebsiella pneumoniae Aerococcus urinae See Comments Imaging X-rays of the pelvis and left hip were reviewed from 09/11. She has joint space narrowing both hips. No evidence of fracture. Looks like she has significant degenerative changes in the lower lumbar region on the AP pelvis view X-rays of the left knee from 09/12 shows significant degenerative arthritis involving more of the medial compartment and the patellofemoral joint with less involvement in the lateral compartment. Spurring is noted off the tibia and the femur as well as the patellofemoral joint but no evidence of fracture Assessment and Plan Assessment Left knee pain since fall on 09/11 Problem List Osteoarthritis left knee Plan Again it appears that she got an injection of Kenalog in the emergency room on 09/12. Sometimes it takes a week to 10 days to see improvement from a cortisone injection. She has fairly significant arthritis involving all 3 compartments of the knee. I think her fall aggravated or exacerbated her osteoarthritis. Would recommend continued to attempt walker ambulation weightbearing as tolerated on the left. If she continues with problems she may eventually require a total knee arthroplasty. Final Diagonsis Osteoarthritis left knee Level of the visit: Level 3 EDDIE SIMS MD Sep 15, 2020 09:32
--- NOTE | 2020-09-15 10:13 | Physical Therapy Daily Note ---
PT Daily Note-Current Subjective Patient is in bed and yells in knee pain with any movement. Reluctantly agrees to PT. Pain Numeric Pain Scale: 10-Worst Possible Pain Location: Right, Left Location Body Site: Knee Mental Status Patient Orientation: Person, Situation Transfers SCALE: Activities may be completed with or without assistive devices. 6-Usfbxhgayj-gwwuefb completes the activity by him/herself with no assistance from a helper. 5-Set-up or Clean-up Assistance-helper sets up or cleans up; patient completes activity. [place] assists only prior to or following the activity. 4-Supervision or Touching Assistance-helper provides verbal cues and/or touching/steadying and/or contact guard assistance as patient completes activity. Assistance may be provided throughout the activity or intermittently. 3-Partial/Moderate Assistance-helper does LESS THAN HALF the effort. [place] lifts, holds or supports trunk or limbs, but provides less than half the effort. 2-Substantial/Maximal Assistance-helper does MORE THAN HALF the effort. [place] lifts or holds trunk or limbs and provides more than half the effort. 8-Fiqkuwlhn-jqluzm does ALL the effort. Patient does none of the effort to compl ete the activity. Or, the assistance of 2 or more helpers is required for the patient to complete the activity. If activity was not attempted, code reason: 7-Patient Refused. 9-Not Applicable-not attempted and the patient did not perform the activity before the current illness, exacerbation or injury. 10-Not Attempted due to Environmental Limitations-(lack of equipment, weather restraints, etc.). 88-Not Attempted due to Medical Conditions or Safety Concerns. Lying to Sitting/Side of Bed(Q: 2 Sit to Stand (QC): 2 Chair/Dzy-na-Xdhvf Xfer(QC): 2 patient is impulsive to sit and appears to unaware of safety concerns. Patient performs "scooting" bilateral feet vs. taking a step to clear feet Weight Bearing Right Lower Extremity: Right Full Weight Bearing Left Lower Extremity: Left Weight Bearing/Tolerated Gait Training Walk 10 feet (QC): 7 Exercises Seated Therapy Exercises: Ankle pumps, Long arc quads, Hip flexion Seated Reps: 12 Assessment Patient requires redirection to remain on task. Patient also appears to self limit due to ceasing treatment when up in recliner. Noted gastroc/soleus atrophy bilaterally. PT Short Term Goals Short Term Goals Time Frame: Sep 17, 2020 Roll Left & Right: 6 Sit to lyin Lying to sitting on side of be: 6 Sit to stand: 6 PT Face Painter Goals Face Painter Goals PT Face Painter Goals Time Frame: Sep 27, 2020 Roll Left & Right (QC): 6 Sit to Lying (QC): 6 Lying-Sitting on Side/Bed(QC): 6 Sit to Stand (QC): 6 Chair/Zho-od-Qeyqh Xfer(QC): 6 Toilet Transfer (QC): 6 Car Transfer (QC): 4 Does the Patient Walk: No and Walking Goal IS indicated Walk 10 feet (QC): 6 Walk 50ft with 2 Turns (QC): 6 Walk 150 ft (QC): 6 Walking 10ft on Uneven Surface: 6 1 Step (curb) (QC): 4 4 Steps (QC): 4 12 Steps (QC): 9 Does the Pt use WC or Scooter?: No Type: N/A Type: N/A PT Plan Treatment/Plan Treatment Plan: Continue Plan of Care Treatment Plan: Bed Mobility, Education, Functional Activity Farheen, Functional Strength, Gait, Safety, Therapeutic Exercise, Transfers Treatment Duration: Sep 27, 2020 Frequency: 6 times per week Estimated Hrs Per Day: .25 hour per day Patient and/or Family Agrees t: Yes Time/GCodes Time In: 928 Time Out: 941 Total Billed Treatment Time: 11 Total Billed Treatment 1 visit FA 11 min TRINIDAD CAMACHO PT Sep 15, 2020 10:13
[2020-09-15] MEDS ORDERED: FURO40TA4 PO (10:46)
[2020-09-15] MEDS ORDERED: DIPH25TA65 PO (10:46)
[2020-09-15] MEDS ORDERED: METF-865 PO (10:46)
[2020-09-15] MEDS ORDERED: MAGN400T39 PO (10:46)
[2020-09-15] MEDS ORDERED: PREN-102 PO (10:46)
[2020-09-15] MEDS ORDERED: PNV1TABL9 PO (10:46)
[2020-09-15] MEDS ORDERED: ASPI325T32 PO (10:47)
--- NOTE | 2020-09-15 10:49 | NUR ---
I SPOKE WITH THE PATIENT, WENT THROUGH THE EXTERNAL MED HISTORY AND CALLED [facility] TO COMPLETE THIS MED REC. PATIENT SAID THAT SHE TAKES METFORMIN 1000MG BID, BUT THIS WAS LAST FILLED 06/03/20 #120/30DS. WHEN ASKING THE PATIENT IF SHE HAD IN FACT RUN OUT OF METFORMIN SHE TOLD ME THAT SHE HAS BEEN TAKING HER 'S METFORMIN. SHE SAID HIS METFORMIN IS 500MG WELL. PATIENT ALSO TOLD ME THAT SHE TAKES LANTUS, BUT WHEN I CALLED [facility] THEY SAID THEY HAVEN'T FILLED THAT FOR HER. WHEN I ASKED HER ABOUT THIS, SHE SAID THAT SHE RAN OUT MONTHS AGO AND HASN'T BEEN TAKING ANY INSULIN. BECAUSE OF THIS, I LEFT LANTUS OFF OF THE MED REC. OTC: VITAMINS ASPIRIN MAGNESIUM BENADRYL
--- NOTE | 2020-09-15 10:59 | Progress Note - Hospitalist ---
JAYSHREE RAE MED STUDENT 09/15/20 1059: Subjective HPI/CC On Admission Date Seen by Provider: Sep 15, 2020 Time Seen by Provider: 08:40 This 74-year-old woman presents to the emergency room with mobility issues after having a fall yesterday. She fell on her left hip and was seen in the emergency room. X-ray of the left hip was unremarkable. Today she complains of her "knees giving out". She was unable to get from her walker to bed and called EMS. She reports history of having numerous aspirations of knee effusion by Dr. Phillips in the past. She reports he also performed steroid injections with the aspirations. She has a small bruise on the superior aspect of her left knee. She has pain with range of motion. The knee appears swollen and warm anteriorly. She takes a full aspirin daily and Plavix Upon my arrival the morning the patient was feeling little bit better. She reported that she did not have any more pain then her normal arthritis pain in the right knee prior to her fall nor does she think it was warm or hot prior to her fall. She denies night sweats chills or fever. She had a depressed affect. 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 Subjective/Events-last exam Pt reports L knee pain 9/10 Requests Miralax for constipation Glucose under control today at 84 Dr. Talamantes consulted and cannot do steroid injection due to recent administration of Kenalog 09/12/20 - recommends ambulation and next step eventual total knee arthroplasty Objective Exam Vital Signs Vital Signs Date Time Temp Pulse Resp B/P (MAP) Pulse Ox O2 Delivery O2 Flow Rate FiO2 09/15/20 08:30 35.6 84 24 111/65 (80) 97 Nasal Cannula 2.00 Capillary Refill : Less Than 3 SecondsLess Than 3 Seconds General Appearance: No Apparent Distress, WD/WN Neck: Normal Inspection, Non Tender Respiratory: Lungs Clear, Normal Breath Sounds, No Accessory Muscle Use, No Respiratory Distress Cardiovascular: Regular Rate, Rhythm, No JVD, No Murmur, Normal Peripheral Pulses Gastrointestinal: Normal Bowel Sounds, No Pulsatile Mass, Non Tender Extremity: Normal Capillary Refill, No Calf Tenderness, No Pedal Edema, Other (Left knee reveals mild warmth minimal swelling no ecchymosis or erythema only mild tenderness over the lateral and medial joint line) Neurologic/Psychiatric: Alert, Oriented x3, Depressed Affect Skin: Normal Color, Warm/Dry Lymphatic: No Adenopathy Results/Procedures Lab Laboratory Tests 09/15/20 05:42 Patient resulted labs reviewed. Assessment/Plan Assessment and Plan Assess & Plan/Chief Complaint Assessment: UTI Traumatic hemarthrosis left knee Poorly controlled T2DM Osteoarthritis HTN Hypercholesterolemia Hx of [place] CAD Depression Plan: Continue ABx Miralax added Monitor glucose control and continue sliding scale insulin Pain control with Hydrocodone q6h PRN PT/OT AYLA KRUSE DO 09/16/20 0551: Subjective Subjective/Events-last exam Dr. Talamantes evaluated the left knee, no ability to drain it since it is now clotted off PT and OT ordered Miralax will be given for bowels May need a nursing facility Multiple falls recently Review of Systems Musculoskeletal: leg pain Objective Exam General Appearance: No Apparent Distress, WD/WN, Chronically ill Respiratory: Lungs Clear Cardiovascular: Regular Rate, Rhythm Neurologic/Psychiatric: Alert, Oriented x3 Assessment/Plan Assessment and Plan Assess & Plan/Chief Complaint 09/15/20: Monitor glucose Pain control Miralax Supervisory-Addendum Brief Verification & Attestation Participated in pt care: history, MDM, physical Personally performed: exam, history, MDM, supervision of care Care discussed with: Medical Student Procedures: n/a Results interpretation: Verified all documentation Verification and Attestation of Medical Student E/M Service A medical student performed and documented this service in my presence. I reviewed and verified all information documented by the medical student and made modifications to such information, when appropriate. I personally performed the physical exam and medical decision making. Ayla Kruse, Sep 16, 2020,05:48 JAYSHREE RAE MED STUDENT Sep 15, 2020 10:59 AYLA KRUSE DO Sep 16, 2020 05:51
[2020-09-15 12:00] VITALS: BP 145/63
--- NOTE | 2020-09-15 12:10 | Occupational Therapy Eval ---
OT Evaluation-General/PLF Medical Diagnosis Admission Date Sep 12, 2020 at 19:08 Medical Diagnosis: hemarthrosis, UTI, multiple falls Onset Date: Sep 12, 2020 Therapy Diagnosis Therapy Diagnosis: weakness, decreased ADL status Height/Weight Height (Feet): 5 Height (Inches): 2.00 Weight (Pounds): 215 Precautions Precautions/Isolations: Fall Prevention, Standard Precautions Referral Physician: Linda Referral Reason: Evaluation/Treatment Medical History Pertinent Medical History: Arthritis, CAD, DM, [place] Additional Medical History coronary stent, heart attack, HTN, kidney stone Current History ED due to mobility issues post fall 09/11/2020, pt discharged home then returned on 09/12/2020 after falling on stairs in garage. Social History Home: Single Level Current Living Status: Spouse Entry Into Home: Stairs With Railing Steps Into Home: 2 ADL-Prior Level of Function SCALE: Activities may be completed with or without assistive devices. 0-Vvwxlxiblk-tcjixwm completes the activity by him/herself with no assistance from a helper. 5-Set-up or Clean-up Assistance-helper sets up or cleans up; patient completes activity. [place] assists only prior to or following the activity. 4-Supervision or Touching Assistance-helper provides verbal cues and/or touching/steadying and/or contact guard assistance as patient completes activity. Assistance may be provided throughout the activity or intermittently. 3-Partial/Moderate Assistance-helper does LESS THAN HALF the effort. [place] lifts, holds or supports trunk or limbs, but provides less than half the effort. 2-Substantial/Maximal Assistance-helper does MORE THAN HALF the effort. [place] lifts or holds trunk or limbs and provides more than half the effort. 8-Kwbcqefpv-ryrghw does ALL the effort. Patient does none of the effort to comp lete the activity. Or, the assistance of 2 or more helpers is required for the patient to complete the activity. If activity was not attempted, code reason: 7-Patient Refused. 9-Not Applicable-not attempted and the patient did not perform the activity before the current illness, exacerbation or injury. 10-Not Attempted due to Environmental Limitations-(lack of equipment, weather restraints, etc.). 88-Not Attempted due to Medical Conditions or Safety Concerns. ADL PLOF Comments Pt reports being independent with bathing, dressing and toileting at PLOF. IND with functional mobility in/out of house using 4WW. Pt's assists pt in/out of walk in shower, and he completes cooking and cleaning. Self Care: Needed Some Help Functional Cognition: Independent DME/Equipment: Bath Chair, Shower, Tub/Shower DME/Equipment Comments 4WW OT Current Status Subjective Pt seated in recliner, agreeable to OT evaluation/tx. Pt reports pain in L hip but does not provide pain rating. Mental Status/Objective Patient Orientation: Person, Place, Time, Situation Attachments: Oxygen Current Glasses/Contacts: Yes Hearing Aids: No Dentures/Partials: No Hand Dominance: Left Upper Extremity ROM WFL, BUE shoulder flexion to approx 140 degrees, able to touch back of head with hands. Upper Extremity Coordination WFL Upper Extremity Sensation WFL, pt denies tingling/numbness BUEs. Upper Extremity Strength grossly 3+/5 ADL-Treatment Eating (QC): 6 (Pt reports IND with eating breakfast.) On/Off Footwear (QC): 3 (Mod A, pt able to doff gripper socks, assist to don.) Other Treatments Pt seated in recliner, agreeable to OT evaluation and tx. OT educated pt on purpose and benefit of OT, she verbalized understanding. Pt then participated in UE screen and provided information about PLOF and home set up. Pt able to doff bilateral gripper socks. OT provided lotion to pt, she was unable to reach feet to put lotion on. OT assisted pt with putting lotion on feet/lower legs. Pt attempted to don gripper socks, but unsuccessful, OT donned for pt. OT educated pt on OT POC while she is admitted, she verbalized understanding. Post tx, pt seated in recliner, call light in reach and all needs met. Education OT Patient Education: Correct positioning, Modified ADL techniques, Progress toward Goal/Update tx plan, Purpose of tx/functional activities Teaching Recipient: Patient OT Penitentiary Goals Penitentiary Goals Time Frame: Oct 03, 2020 Oral Hygiene (QC): 6 Toileting Hygiene (QC): 6 Shower/Bathe Self (QC): 4 Upper Body Dressing (QC): 6 Lower Body Dressing (QC): 4 On/Off Footwear (QC): 4 Additional Goals: 1-Demonstrate ADL Tasks, 2-Verbalize Understanding, 3- ImproveStrength/Farheen 1=Demonstrate adherence to instructed precautions during ADL tasks. 2=Patient will verbalize/demonstrate understanding of assistive devices/modifications for ADL. 3=Patient will improve strength/tolerance for activity to enable patient to perform ADL's. OT Education/Plan Problem List/Assessment Assessment: Decreased Activ Tolerance, Decreased UE Strength, Impaired Funct Balance, Impaired I ADL's, Impaired Self-Care Skills Discharge Recommendations Plan/Recommendations: Continue POC Treatment Plan/Plan of Care Patient would benefit from OT for education, treatment and training to promote independence in ADL's, mobility, safety and/or upper extremity function for ADL's. Plan of Care: ADL Retraining, Functional Mobility, UE Funct Exercise/Act Treatment Duration: Oct 03, 2020 Frequency: 5 times per week Estimated Hrs Per Day: .25 hour per day Rehab Potential: Fair Time/GCodes Start Time: 11:29 Stop Time: 11:45 Total Time Billed (hr/min): 16 Billed Treatment Time 1, LAVERN LINTON OT Sep 15, 2020 12:10
[2020-09-15 16:00] VITALS: BP_SYST 114; BP_SYST 190; BP_DIAS 55; BP_DIAS 79
[2020-09-15] MEDS: cefTRIAXone FOR IV USE 1,000 MG in WATER (STERILE) FOR INJECTION 10 ML IV SCH (17:32)
[2020-09-15 19:19] VITALS: BP 122/64
[2020-09-16 00:48] VITALS: BP 108/71
[2020-09-16 04:45] VITALS: BP 138/80
[2020-09-16 05:54] LABS: BASOPHILS % (AUTO) 0 % (0-10); EOSINOPHILS # (AUTO) 0.4 10^3/uL (0.0-0.3); EOSINOPHILS % (AUTO) 5 % (0-10); HEMATOCRIT 35 % (35-52); HEMOGLOBIN 11.2 g/dL (11.5-16.0); LYMPHOCYTES # (AUTO) 3.3 10^3/uL (1.0-4.0); LYMPHOCYTES % (AUTO) 44 % (12-44); MEAN CORPUSCULAR HEMOGLOBIN 28 pg (25-34); MEAN CORPUSCULAR HGB CONC 32 g/dL (32-36); MEAN CORPUSCULAR VOLUME 89 fL (80-99); MEAN PLATELET VOLUME 11.1 fL (9.0-12.2); MONOCYTES # (AUTO) 0.8 10^3/uL (0.0-1.0); MONOCYTES % (AUTO) 11 % (0-12); NEUTROPHILS % (AUTO) 39 % (42-75); PLATELET COUNT 278 10^3/uL (130-400); WHITE BLOOD COUNT 7.6 10^3/uL (4.3-11.0)
[2020-09-16] MEDS ORDERED: polyethylene glycoL POWDER 17 GM (MIRALAX) PACK PO ONE (06:00)
[2020-09-16 06:11] LABS: ALBUMIN 3.3 GM/DL (3.2-4.5); POTASSIUM 4.2 MMOL/L (3.6-5.0)
[2020-09-16 06:12] LABS: CALCIUM 8.9 MG/DL (8.5-10.1)
[2020-09-16 06:14] LABS: TOTAL PROTEIN 6.2 GM/DL (6.4-8.2)
[2020-09-16 06:15] LABS: BILIRUBIN,TOTAL 0.4 MG/DL (0.1-1.0)
[2020-09-16 06:17] LABS: CREATININE SERUM 1.14 MG/DL (0.60-1.30)
[2020-09-16] MEDS: inSUlin ASPART (NovoLOG) 1 UNIT/0.01 ML (CHARGE PER UNIT) SC SCH ×4 (06:23→20:19)
[2020-09-16] MEDS: CATHETER FLUSH 10 ML SYR IV SCH ×2 (06:28→14:00)
[2020-09-16 08:00] VITALS: BP 120/72
[2020-09-16] MEDS: MELOXICAM 7.5 MG (MOBIC) TABLET PO SCH (08:51)
[2020-09-16] MEDS: metFORMIN 500 MG (GLUCOPHAGE) TAB PO SCH ×2 (08:51→17:50)
--- NOTE | 2020-09-16 09:23 | NUR ---
O2 REMOVED AT THIS TIME
[2020-09-16] MEDS ORDERED: LACTULOSE SYRUP 10GM/15ML (ENULOSE) 30ML UDC PO ONE (09:30)
[2020-09-16] MEDS ORDERED: SENNA W/DOCUSATE (SENOKOT S) TABLET PO ONE (09:30)
--- NOTE | 2020-09-16 10:18 | Progress Note - Hospitalist ---
JAYSHREE RAE MED STUDENT 09/16/20 1018: Subjective HPI/CC On Admission Date Seen by Provider: Sep 16, 2020 Time Seen by Provider: 08:05 This 74-year-old woman presents to the emergency room with mobility issues after having a fall yesterday. She fell on her left hip and was seen in the emergency room. X-ray of the left hip was unremarkable. Today she complains of her "knees giving out". She was unable to get from her walker to bed and called EMS. She reports history of having numerous aspirations of knee effusion by Dr. Phillips in the past. She reports he also performed steroid injections with the aspirations. She has a small bruise on the superior aspect of her left knee. She has pain with range of motion. The knee appears swollen and warm anteriorly. She takes a full aspirin daily and Plavix Upon my arrival the morning the patient was feeling little bit better. She reported that she did not have any more pain then her normal arthritis pain in the right knee prior to her fall nor does she think it was warm or hot prior to her fall. She denies night sweats chills or fever. She had a depressed affect. 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 Subjective/Events-last exam Pt unwilling to communicate much due to tiredness and desire to go back to sleep Reports L knee pain 9/10 - improves with pain medication Still has not had BM Pt denies shortness of breath, chest pain, N/V Glucose 144 Objective Exam Vital Signs Vital Signs Date Time Temp Pulse Resp B/P (MAP) Pulse Ox O2 Delivery O2 Flow Rate FiO2 09/16/20 09:22 96 Nasal Cannula 2.00 09/16/20 08:00 35.2 86 18 120/72 (88) Capillary Refill : Less Than 3 SecondsLess Than 3 Seconds General Appearance: No Apparent Distress, WD/WN Respiratory: Chest Non Tender, Normal Breath Sounds, No Accessory Muscle Use, No Respiratory Distress Cardiovascular: Regular Rate, Rhythm, No Edema, Normal Peripheral Pulses Gastrointestinal: Non Tender, Soft Extremity: Normal Capillary Refill, Non Tender, No Pedal Edema, Other (L knee pain - mild swelling) Neurologic/Psychiatric: Oriented x3, Depressed Affect Skin: Normal Color, Warm/Dry Lymphatic: No Adenopathy Results/Procedures Lab Laboratory Tests 09/16/20 05:24 Patient resulted labs reviewed. Assessment/Plan Assessment and Plan Assess & Plan/Chief Complaint Assessment: UTI Traumatic hemarthrosis left knee Poorly controlled T2DM Osteoarthritis HTN Hypercholesterolemia Hx of [place] CAD Depression Plan: Continue ABx Miralax added Monitor glucose control and continue sliding scale insulin Pain control with Hydrocodone q6h PRN PT/OT 09/16/20 Add lactulose, senna, polyethelene glycol for continued constipation PT/OT Continue pain control L knee Monitor glucose AYLA KRUSE DO 09/17/20 0544: Subjective Subjective/Events-last exam Pt doing a little better Pain is well controlled Bowel regimen will be intensified Glucose level at 144 Overall doing much better Very slow recovery Objective Exam General Appearance: No Apparent Distress, WD/WN, Chronically ill Respiratory: Lungs Clear Cardiovascular: Regular Rate, Rhythm Assessment/Plan Assessment and Plan Assess & Plan/Chief Complaint 09/16/20: BM regimen Monitor closely Supervisory-Addendum Brief Verification & Attestation Participated in pt care: history, MDM, physical Personally performed: exam, history, MDM, supervision of care Care discussed with: Medical Student Procedures: n/a Results interpretation: Verified all documentation Verification and Attestation of Medical Student E/M Service A medical student performed and documented this service in my presence. I reviewed and verified all information documented by the medical student and made modifications to such information, when appropriate. I personally performed the physical exam and medical decision making. Ayla Kruse, Sep 17, 2020,05:43 JAYSHREE RAE MED STUDENT Sep 16, 2020 10:18 AYLA KRUSE DO Sep 17, 2020 05:44
--- NOTE | 2020-09-16 10:29 | Physical Therapy Daily Note ---
PT Daily Note-Current Subjective Patient is very slow to respond verbally and physically to PT cues. Mental Status Patient Orientation: Confused Transfers SCALE: Activities may be completed with or without assistive devices. 3-Fgqbpqnhgg-sjhdpau completes the activity by him/herself with no assistance from a helper. 5-Set-up or Clean-up Assistance-helper sets up or cleans up; patient completes activity. [place] assists only prior to or following the activity. 4-Supervision or Touching Assistance-helper provides verbal cues and/or touching/steadying and/or contact guard assistance as patient completes activity. Assistance may be provided throughout the activity or intermittently. 3-Partial/Moderate Assistance-helper does LESS THAN HALF the effort. [place] lifts, holds or supports trunk or limbs, but provides less than half the effort. 2-Substantial/Maximal Assistance-helper does MORE THAN HALF the effort. [place] lifts or holds trunk or limbs and provides more than half the effort. 7-Ooosvdjuj-eyrrvn does ALL the effort. Patient does none of the effort to complete the activity. Or, the assistance of 2 or more helpers is required for the patient to complete the activity. If activity was not attempted, code reason: 7-Patient Refused. 9-Not Applicable-not attempted and the patient did not perform the activity before the current illness, exacerbation or injury. 10-Not Attempted due to Environmental Limitations-(lack of equipment, weather restraints, etc.). 88-Not Attempted due to Medical Conditions or Safety Concerns. Lying to Sitting/Side of Bed(Q: 2 Sit to Stand (QC): 2 Chair/Hzz-oq-Owgzm Xfer(QC): 2 max assist with all mobility (patient requires redirection to remain on task and to perform activity) Patient is impulsive to sit when not safe Weight Bearing Right Lower Extremity: Right Full Weight Bearing Left Lower Extremity: Left Weight Bearing/Tolerated Gait Training Does the Patient Walk?: No and Walking Goal IS indicated Distance: 5' Gait Assistive Device: FWW shuffle gait sequence (declined to attempt ambulation in room to door or restroom) Exercises Supine Ex: Ankle pumps, Quad Set, Heel Slides Supine Reps: 12 Seated Therapy Exercises: Ankle pumps, Long arc quads, Hip flexion Seated Reps: 15 Assessment Patient incontinent urine requiring PT assist to cleanse and change patient. Patient would not attempt to cleanse self. Patient did cease treatment and was focused on her diet coke. PT Short Term Goals Short Term Goals Time Frame: Sep 17, 2020 Roll Left & Right: 6 Sit to lyin Lying to sitting on side of be: 6 Sit to stand: 6 PT Shop Steward Goals Snf Goals PT Shop Steward Goals Time Frame: Sep 27, 2020 Roll Left & Right (QC): 6 Sit to Lying (QC): 6 Lying-Sitting on Side/Bed(QC): 6 Sit to Stand (QC): 6 Chair/Nuw-sy-Asrei Xfer(QC): 6 Toilet Transfer (QC): 6 Car Transfer (QC): 4 Does the Patient Walk: No and Walking Goal IS indicated Walk 10 feet (QC): 6 Walk 50ft with 2 Turns (QC): 6 Walk 150 ft (QC): 6 Walking 10ft on Uneven Surface: 6 1 Step (curb) (QC): 4 4 Steps (QC): 4 12 Steps (QC): 9 Does the Pt use WC or Scooter?: No Type: N/A Type: N/A PT Plan Treatment/Plan Treatment Plan: Continue Plan of Care Treatment Plan: Bed Mobility, Education, Functional Activity Farheen, Functional Strength, Gait, Safety, Therapeutic Exercise, Transfers Treatment Duration: Sep 27, 2020 Frequency: 6 times per week Estimated Hrs Per Day: .25 hour per day Patient and/or Family Agrees t: Yes Time/GCodes Time In: 955 Time Out: 1018 Total Billed Treatment Time: 23 Total Billed Treatment 1 visit EX 10 min FA 13 min TRINIDAD CAMACHO PT Sep 16, 2020 10:29
[2020-09-16] MEDS ORDERED: LACTULOSE SYRUP 10GM/15ML (ENULOSE) 30ML UDC ONE (11:48)
[2020-09-16] MEDS ORDERED: SENNOSIDES 8.6 MG (SENOKOT) TAB ONE (11:48)
[2020-09-16] MEDS ORDERED: SENNA W/DOCUSATE (SENOKOT S) TABLET ONE (11:53)
--- NOTE | 2020-09-16 14:10 | Occupational Ther Daily Note ---
OT Current Status-Daily Note Subjective Pt seated in recliner, agreeable to OT Tx with focus on ADLs. Pt telling story about how it is so cold in [place] that geckos are falling out of trees and onto peoples head. ADL-Treatment Therapy Code Descriptions/Definitions Functional [place] Measure: 0=Not Assessed/NA 4=Minimal Assistance 1=Total Assistance 5=Supervision or Setup 2=Maximal Assistance 6=Modified [place] 3=Moderate Assistance 7=Complete IndependenceSCALE: Activities may be completed with or without assistive devices. 6-Shlsusyhjr-xbyuhhi completes the activity by him/herself with no assistance from a helper. 5-Set-up or Clean-up Assistance-helper sets up or cleans up; patient completes activity. [place] assists only prior to or following the activity. 4-Supervision or Touching Assistance-helper provides verbal cues and/or touching/steadying and/or contact guard assistance as patient completes activity. Assistance may be provided throughout the activity or intermittently. 3-Partial/Moderate Assistance-helper does LESS THAN HALF the effort. [place] lifts, holds or supports trunk or limbs, but provides less than half the effort. 2-Substantial/Maximal Assistance-helper does MORE THAN HALF the effort. [place] lifts or holds trunk or limbs and provides more than half the effort. 5-Ycturrvxh-fezpqj does ALL the effort. Patient does none of the effort to complete the activity. Or, the assistance of 2 or more helpers is required for the patient to complete the activity. If activity was not attempted, code reason: 7-Patient Refused. 9-Not Applicable-not attempted and the patient did not perform the activity before the current illness, exacerbation or injury. 10-Not Attempted due to Environmental Limitations-(lack of equipment, weather restraints, etc.). 88-Not Attempted due to Medical Conditions or Safety Concerns. Oral Hygiene (QC): 4 (SBA) Other Treatment Pt seated in recliner, brushed her hair with min A (assist reaching back L side of hair), she washed her face with set up assistance. OT then provided pt with oral care supplies, pt able to open all containers, place toothpaste onto toothbrush and complete oral care with SBA. Post tx, pt seated in recliner, call light in reach and all needs met, chair alarm on. Education OT Patient Education: Correct positioning, Modified ADL techniques, Progress toward Goal/Update tx plan, Purpose of tx/functional activities, Rehab process Teaching Recipient: Patient Teaching Methods: Discussion Response to Teaching: Verbalize Understanding OT Half-Way Goals Assistant Community Manager Goals Time Frame: Oct 03, 2020 Oral Hygiene (QC): 6 Toileting Hygiene (QC): 6 Shower/Bathe Self (QC): 4 Upper Body Dressing (QC): 6 Lower Body Dressing (QC): 4 On/Off Footwear (QC): 4 Additional Goals: 1-Demonstrate ADL Tasks, 2-Verbalize Understanding, 3-ImproveStrength/Farheen 1=Demonstrate adherence to instructed precautions during ADL tasks. 2=Patient will verbalize/demonstrate understanding of assistive devices/modifications for ADL. 3=Patient will improve strength/tolerance for activity to enable patient to per form ADL's. OT Education/Plan Problem List/Assessment Assessment: Decreased Activ Tolerance, Decreased UE Strength, Impaired Funct Balance, Impaired I ADL's, Impaired Self-Care Skills Discharge Recommendations Plan/Recommendations: Continue POC Treatment Plan/Plan of Care Patient would benefit from OT for education, treatment and training to promote independence in ADL's, mobility, safety and/or upper extremity function for ADL's. Plan of Care: ADL Retraining, Functional Mobility, UE Funct Exercise/Act Treatment Duration: Oct 03, 2020 Frequency: 5 times per week Estimated Hrs Per Day: .25 hour per day Rehab Potential: Fair Time/GCodes Start Time: 14:00 Stop Time: 14:12 Total Time Billed (hr/min): 12 Billed Treatment Time 1, ADL LAVERN RUSSO OT Sep 16, 2020 14:10
--- NOTE | 2020-09-16 15:01 | NUR ---
"RD ASSESSMENT PMHx: CAD; hypercholesterolemia; HTN; DM; PT INTERACTION: Pt was awake and pleasant during nutrition consult for MST score. Pt states current appetite is so-so. Note avg PO intake <25% x3d, per chart review. Pt states following a diabetic diet at home, and has no issues with chewing/swallowing food. Pt states no recent issues with nausea, vomiting, constipation, or diarrhea, and that her last BM was 09/10. Note pt currently on bowel regimen of miralax HS, per chart review. Pt states no recent wt changes. Note unable to determine recent wt hx, per chart review. Pt states current DM management is good. Note unable to determine recent HbA1c, per chart review. Given PO intake, and wt hx, pt does not meet criteria for malnutrition per ASPEN guidelines. Est. kcal needs: 7436-1402 kcal | 15-20 kcal/kg Est. Pro needs: 68-85 g Pro | 0.8-1.0 g Pro/kg PES STATEMENT: Inadequate oral intake (NI-2.1) related to loss of appetite, as evidenced by pt interview, and avg PO intake <25% x3d. INTERVENTION: Continue with current diet order of CHO 60g/m 3snack diet. Add Glucerna (vary) to meals TID, for increased kcal intake. Provides 220 kcal and 10 g Pro per serving. Offered diet education on DM management, but pt declined at this time. May attempt to offer again prior to discharge. Will continue to follow and reassess as pt needs, intake, and status change. Rodrigo CARPIO, MS RD LD [phone] cell"
[2020-09-16 16:00] VITALS: BP 104/54
[2020-09-16] MEDS: cefTRIAXone FOR IV USE 1,000 MG in WATER (STERILE) FOR INJECTION 10 ML IV SCH (17:51)
[2020-09-16] MEDS: HYDROcodone/APAP 5 MG/325 MG (LORTAB) TAB PO PRN (20:40)
--- NOTE | 2020-09-16 20:46 | NUR ---
DR KRUSE NOTIFIED OF PT 117 BLOOD SUGAR AND SCHEDULED 15 U OF LEVEMIR, ORDERED TO HOLD LEVEMIR FRANKLIN,
[2020-09-16] MEDS: SENNA W/DOCUSATE (SENOKOT S) TABLET PO SCH (21:01)
[2020-09-16] MEDS: LACTULOSE SYRUP 10GM/15ML (ENULOSE) 30ML UDC PO SCH (21:01)
[2020-09-16] MEDS: polyethylene glycoL POWDER 17 GM (MIRALAX) PACK PO SCH (21:01)
[2020-09-16 23:00] VITALS: BP 121/60
[2020-09-17] MEDS: CATHETER FLUSH 10 ML SYR IV SCH ×4 (00:17→21:06)
[2020-09-17 05:44] LABS: BASOPHILS % (AUTO) 0 % (0-10); EOSINOPHILS # (AUTO) 0.3 10^3/uL (0.0-0.3); EOSINOPHILS % (AUTO) 4 % (0-10); HEMATOCRIT 36 % (35-52); HEMOGLOBIN 11.4 g/dL (11.5-16.0); LYMPHOCYTES # (AUTO) 3.1 10^3/uL (1.0-4.0); LYMPHOCYTES % (AUTO) 38 % (12-44); MEAN CORPUSCULAR HEMOGLOBIN 28 pg (25-34); MEAN CORPUSCULAR HGB CONC 32 g/dL (32-36); MEAN CORPUSCULAR VOLUME 89 fL (80-99); MEAN PLATELET VOLUME 10.6 fL (9.0-12.2); MONOCYTES # (AUTO) 0.9 10^3/uL (0.0-1.0); MONOCYTES % (AUTO) 11 % (0-12); NEUTROPHILS # (AUTO) 3.7 10^3/uL (1.8-7.8); NEUTROPHILS % (AUTO) 46 % (42-75); PLATELET COUNT 302 10^3/uL (130-400)
[2020-09-17 05:52] LABS: ALBUMIN 3.4 GM/DL (3.2-4.5); POTASSIUM 4.3 MMOL/L (3.6-5.0)
[2020-09-17 05:53] LABS: CALCIUM 8.9 MG/DL (8.5-10.1)
[2020-09-17 05:55] LABS: TOTAL PROTEIN 6.1 GM/DL (6.4-8.2)
[2020-09-17] MEDS: inSUlin ASPART (NovoLOG) 1 UNIT/0.01 ML (CHARGE PER UNIT) SC SCH ×4 (05:55→21:01)
[2020-09-17 05:56] LABS: BILIRUBIN,TOTAL 0.4 MG/DL (0.1-1.0)
[2020-09-17 05:58] LABS: CREATININE SERUM 1.05 MG/DL (0.60-1.30)
[2020-09-17 08:00] VITALS: BP 117/61
[2020-09-17] MEDS: metFORMIN 500 MG (GLUCOPHAGE) TAB PO SCH ×2 (08:39→17:21)
[2020-09-17] MEDS: MELOXICAM 7.5 MG (MOBIC) TABLET PO SCH (08:39)
[2020-09-17] MEDS: LACTULOSE SYRUP 10GM/15ML (ENULOSE) 30ML UDC PO SCH ×2 (08:41→19:30)
[2020-09-17] MEDS: SENNA W/DOCUSATE (SENOKOT S) TABLET PO SCH ×2 (08:41→19:30)
--- NOTE | 2020-09-17 10:37 | NUR ---
Pt is [employer]. Powerhouse Mechanic Apprentice provided prayer and Communion.
--- NOTE | 2020-09-17 11:06 | Occupational Ther Daily Note ---
OT Current Status-Daily Note Subjective Pt agreeable to OT tx, and reports no pain Mental Status/Objective Patient Orientation: Person, Place, Time, Situation ADL-Treatment Therapy Code Descriptions/Definitions Functional [place] Measure: 0=Not Assessed/NA 4=Minimal Assistance 1=Total Assistance 5=Supervision or Setup 2=Maximal Assistance 6=Modified [place] 3=Moderate Assistance 7=Complete IndependenceSCALE: Activities may be completed with or without assistive devices. 1-Krtnpliuxp-dudpzum completes the activity by him/herself with no assistance from a helper. 5-Set-up or Clean-up Assistance-helper sets up or cleans up; patient completes activity. [place] assists only prior to or following the activity. 4-Supervision or Touching Assistance-helper provides verbal cues and/or touching/steadying and/or contact guard assistance as patient completes activity. Assistance may be provided throughout the activity or intermittently. 3-Partial/Moderate Assistance-helper does LESS THAN HALF the effort. [place] lifts, holds or supports trunk or limbs, but provides less than half the effort. 2-Substantial/Maximal Assistance-helper does MORE THAN HALF the effort. [place] lifts or holds trunk or limbs and provides more than half the effort. 6-Jqbhfjbby-pnqfso does ALL the effort. Patient does none of the effort to complete the activity. Or, the assistance of 2 or more helpers is required for the patient to complete the activity. If activity was not attempted, code reason: 7-Patient Refused. 9-Not Applicable-not attempted and the patient did not perform the activity before the current illness, exacerbation or injury. 10-Not Attempted due to Environmental Limitations-(lack of equipment, weather restraints, etc.). 88-Not Attempted due to Medical Conditions or Safety Concerns. Toileting Hygiene (QC): 1 (Pt needed assistance in clothing management and hygiene in bed) Other Treatment Pt laying in bed, agreeable to OT tx. Pt performed rolling bed mobility (min A) in order to complete change of brief and hygiene. Pt transferred from supine to sit EOB and transferred to recliner from bed using FWW. In recliner, pt brushed hair at [place] with OT reaching back of her head on the L side. Post tx, pt in recliner, chair alarm on, with call light in reach and all needs met. Education OT Patient Education: Modified ADL techniques, Progress toward Goal/Update tx plan, Purpose of tx/functional activities, Safety issues, Transfer techniques Teaching Recipient: Patient Teaching Methods: Discussion Response to Teaching: Verbalize Understanding OT Ux Design Lead Goals Ux Design Lead Goals Time Frame: Oct 03, 2020 Oral Hygiene (QC): 6 Toileting Hygiene (QC): 6 Shower/Bathe Self (QC): 4 Upper Body Dressing (QC): 6 Lower Body Dressing (QC): 4 On/Off Footwear (QC): 4 Additional Goals: 1-Demonstrate ADL Tasks, 2-Verbalize Understanding, 3- ImproveStrength/Farheen 1=Demonstrate adherence to instructed precautions during ADL tasks. 2=Patient will verbalize/demonstrate understanding of assistive devices/modifications for ADL. 3=Patient will improve strength/tolerance for activity to enable patient to perform ADL's. OT Education/Plan Problem List/Assessment Assessment: Decreased UE Strength, Impaired Funct Balance, Impaired I ADL's, Impaired Self-Care Skills Discharge Recommendations Plan/Recommendations: Continue POC Treatment Plan/Plan of Care Patient would benefit from OT for education, treatment and training to promote independence in ADL's, mobility, safety and/or upper extremity function for ADL's. Plan of Care: ADL Retraining, Functional Mobility, UE Funct Exercise/Act Treatment Duration: Oct 03, 2020 Frequency: 5 times per week Estimated Hrs Per Day: .25 hour per day Rehab Potential: Fair Time/GCodes Start Time: 10:42 Stop Time: 10:58 Total Time Billed (hr/min): 16 Billed Treatment Time 1, ADL LAVERN RUSSO OT Sep 17, 2020 11:06
--- NOTE | 2020-09-17 11:08 | Progress Note - Hospitalist ---
JAYSHREE RAE MED STUDENT 09/17/20 1108: Subjective HPI/CC On Admission Date Seen by Provider: Sep 17, 2020 Time Seen by Provider: 08:35 This 74-year-old woman presents to the emergency room with mobility issues after having a fall yesterday. She fell on her left hip and was seen in the emergency room. X-ray of the left hip was unremarkable. Today she complains of her "knees giving out". She was unable to get from her walker to bed and called EMS. She reports history of having numerous aspirations of knee effusion by Dr. Phillips in the past. She reports he also performed steroid injections with the aspirations. She has a small bruise on the superior aspect of her left knee. She has pain with range of motion. The knee appears swollen and warm anteriorly. She takes a full aspirin daily and Plavix Upon my arrival the morning the patient was feeling little bit better. She reported that she did not have any more pain then her normal arthritis pain in the right knee prior to her fall nor does she think it was warm or hot prior to her fall. She denies night sweats chills or fever. She had a depressed affect. 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 Subjective/Events-last exam Pt sitting up in bed with breakfast but does not want to eat Minimal responsiveness in conversation L knee pain improving and controlled by pain medicine Pt does not feel up to getting up and around Constipation resolved Objective Exam Vital Signs Vital Signs Date Time Temp Pulse Resp B/P (MAP) Pulse Ox O2 Delivery O2 Flow Rate FiO2 09/17/20 09:00 Room Air 09/17/20 08:00 35.8 87 16 117/61 (79) 93 09/16/20 09:22 2.00 Capillary Refill : Less Than 3 SecondsLess Than 3 Seconds General Appearance: No Apparent Distress, WD/WN HEENT: Pharynx Normal, Moist Mucous Membranes Neck: Full Range of Motion, Non Tender Respiratory: Chest Non Tender, Lungs Clear, Normal Breath Sounds, No Accessory Muscle Use, No Respiratory Distress Cardiovascular: Regular Rate, Rhythm, No Edema, No Gallop, No JVD, No Murmur, Normal Peripheral Pulses Gastrointestinal: Normal Bowel Sounds, Non Tender, Soft Back: Normal Inspection, No Vertebral Tenderness Extremity: Normal Capillary Refill, No Calf Tenderness, No Pedal Edema, Other (L knee TTP lateral joint line) Neurologic/Psychiatric: Alert, Oriented x3; No Normal Mood/Affect; Depressed Affect Skin: Normal Color, Warm/Dry Lymphatic: No Adenopathy Results/Procedures Lab Laboratory Tests 09/17/20 05:22 Patient resulted labs reviewed. Assessment/Plan Assessment and Plan Assess & Plan/Chief Complaint Assessment: UTI Traumatic hemarthrosis left knee Poorly controlled T2DM Osteoarthritis HTN Hypercholesterolemia Hx of [place] CAD Depression Plan: Continue ABx Miralax added Monitor glucose control and continue sliding scale insulin Pain control with Hydrocodone q6h PRN PT/OT 09/16/20 Add lactulose, senna, polyethelene glycol for continued constipation PT/OT Continue pain control L knee Monitor glucose 09/17/20 Constipation resolved - d/c senna, lactulose and polyethelene PT/OT Social work needed AYLA KRUSE DO 09/18/20 0519: Subjective Subjective/Events-last exam Pt still having some difficulty motivating Bowels are moving very well Social work consult performed, will require a Misti-psych consult tomorrow and [facility] seems to be the place that she will end up for rehab Reviewed all medications and labs Review of Systems General: Fatigue Neurological: Confusion Objective Exam General Appearance: No Apparent Distress, WD/WN, Chronically ill Respiratory: Lungs Clear Cardiovascular: Regular Rate, Rhythm Neurologic/Psychiatric: Alert, Oriented x3, No Motor/Sensory Deficits, Normal Mood/Affect Assessment/Plan Assessment and Plan Assess & Plan/Chief Complaint 09/17/20: Misti-psych screen for depression Pain control Supervisory-Addendum Brief Verification & Attestation Participated in pt care: history, MDM, physical Personally performed: exam, history, MDM, supervision of care Care discussed with: Medical Student Procedures: n/a Results interpretation: Verified all documentation Verification and Attestation of Medical Student E/M Service A medical student performed and documented this service in my presence. I reviewed and verified all information documented by the medical student and made modifications to such information, when appropriate. I personally performed the physical exam and medical decision making. Ayla Kruse, Sep 18, 2020,05:18 JAYSHREE RAE MED STUDENT Sep 17, 2020 11:08 AYLA KRUSE DO Sep 18, 2020 05:19
--- NOTE | 2020-09-17 11:21 | Physical Therapy Daily Note ---
PT Daily Note-Current Subjective Patient in bed pre tx, agrees to PT, has no complaints of pain at rest. Appearance Patient in chair post tx with nurse call, phone, tray, all needs met, chair alarm on. Mental Status Patient Orientation: Person, Confused, Place Transfers SCALE: Activities may be completed with or without assistive devices. 4-Yxprcvqluz-zmsmpgf completes the activity by him/herself with no assistance from a helper. 5-Set-up or Clean-up Assistance-helper sets up or cleans up; patient completes activity. [place] assists only prior to or following the activity. 4-Supervision or Touching Assistance-helper provides verbal cues and/or touching/steadying and/or contact guard assistance as patient completes activity. Assistance may be provided throughout the activity or intermittently. 3-Partial/Moderate Assistance-helper does LESS THAN HALF the effort. [place] lifts, holds or supports trunk or limbs, but provides less than half the effort. 2-Substantial/Maximal Assistance-helper does MORE THAN HALF the effort. [place] lifts or holds trunk or limbs and provides more than half the effort. 9-Gdypxrchy-jhbuxm does ALL the effort. Patient does none of the effort to complete the activity. Or, the assistance of 2 or more helpers is required for the patient to complete the activity. If activity was not attempted, code reason: 7-Patient Refused. 9-Not Applicable-not attempted and the patient did not perform the activity before the current illness, exacerbation or injury. 10-Not Attempted due to Environmental Limitations-(lack of equipment, weather restraints, etc.). 88-Not Attempted due to Medical Conditions or Safety Concerns. Roll Left & Right (QC): 3 Lying to Sitting/Side of Bed(Q: 3 Sit to Stand (QC): 3 Chair/Apm-ad-Ivuro Xfer(QC): 3 mod assist for supine to sit, min assist for sit to stand, cues for safety and positioning Weight Bearing Right Lower Extremity: Right Full Weight Bearing Left Lower Extremity: Left Weight Bearing/Tolerated Gait Training Distance: 3' Gait Persons Needed: 1 Gait Assistive Device: FWW unsteady, some knee buckling, min assist Exercises Seated Therapy Exercises: Ankle pumps, Long arc quads Seated Reps: 20 Treatments bed mobility and transfers, ambulation, LE exercise Assessment Current Status: Poor Progress slightly better supine to sit and transfer PT Short Term Goals Short Term Goals Time Frame: Sep 17, 2020 Roll Left & Right: 6 Sit to lyin Lying to sitting on side of be: 6 Sit to stand: 6 PT Astronomy Department Chair Goals Nursing Home Goals PT Nursing Home Goals Time Frame: Sep 27, 2020 Roll Left & Right (QC): 6 Sit to Lying (QC): 6 Lying-Sitting on Side/Bed(QC): 6 Sit to Stand (QC): 6 Chair/Ihc-bc-Gjzhx Xfer(QC): 6 Toilet Transfer (QC): 6 Car Transfer (QC): 4 Does the Patient Walk: No and Walking Goal IS indicated Walk 10 feet (QC): 6 Walk 50ft with 2 Turns (QC): 6 Walk 150 ft (QC): 6 Walking 10ft on Uneven Surface: 6 1 Step (curb) (QC): 4 4 Steps (QC): 4 12 Steps (QC): 9 Does the Pt use WC or Scooter?: No Type: N/A Type: N/A PT Plan Problem List Problem List: Activity Tolerance, Functional Strength, Safety, Balance, Gait, Transfer, Bed Mobility, ROM Treatment/Plan Treatment Plan: Continue Plan of Care Treatment Plan: Bed Mobility, Education, Functional Activity Farheen, Functional Strength, Gait, Safety, Therapeutic Exercise, Transfers Treatment Duration: Sep 27, 2020 Frequency: 6 times per week Estimated Hrs Per Day: .25 hour per day Patient and/or Family Agrees t: Yes Safety Risks/Education Patient Education: Gait Training, Transfer Techniques, Correct Positioning, Safety Issues Teaching Recipient: Patient Teaching Methods: Demonstration, Discussion Response to Teaching: Reinforcement Needed Time/GCodes Time In: 1042 Time Out: 1058 Total Billed Treatment Time: 16 Total Billed Treatment 1 visit FA JASON ALEXANDER PT Sep 17, 2020 11:21
--- NOTE | 2020-09-17 15:12 | NUR ---
CM/SS: Visited with pt as per Social Service Consult related to out of home placement. Plan: Undetermined at this time, pt is from home, however spouse would like to see her go to a [facility] to get stronger and get to feeling better. Summary: Pt is from home and would like to return there. This worker talks with pt as to her ability to get around, and she reports falling getting into the home when she was at the hospital last, and that she uses a walker. She reports doing ok. When asked if this worker could talk with her she shares not to bother him and to call him in the morning. She has flat affect and gets upset when asked about extended family and reports that her daughter , and another adult child also. She is unable to remember when she . Discussed skilled facility and cost associated with it, as pt reports it cost money. She is explained her medicare skilled days. She still does not seem to be open to a facility. Staff report pt is not eating as well. This worker asked about sending information to [facility] and pt continues to be unsure about it. Pt may need a [facility] psych stay to work through some of the grief around the loss of her daughter. This worker will follow up.
--- NOTE | 2020-09-17 15:21 | NUR ---
CM/SS: Telephone call to Andrea - [phone] - He report that pt has had some difficulty with getting around at home. He reports pt wont get up and go to the bathroom and the she goes in the chair and that she continues to have falls and has more issues getting around. He reports she sits in the chair all day and does nothing. She does not want him to tell anyone. He feels as if pt may need a [facility]. He is OK to have a referral sent to [facility]. He is asked about other family. He has sister and both of their adult children have . Spouse is tearful about that. He has some difficulty composing himself. He is given condolences from this worker, and reminded that this worker will call him back with more information. Referral sent to [facility].
--- NOTE | 2020-09-17 15:52 | NUR ---
CM/SS: Visited with pt as to her mood and her grief and loss related to the loss of her daughter. Pt is able to do some life review and talk about loosing her daughter, and indicates it was this year in April. Some of pt's information is not adding up. Pt reports finding her daughter in the bed and that the daughters dog was in her bed. She reports that she wants to live in [place] where her granddaughter lives. Pt is asked about her mood and she reports she is happy. Pt has flat affect and no animation in her face or change in her tone of voice. Pt is asked about talking with someone about her loss of her daughter and she is open to do so. Pt is tearful throughout our conversation and is able to do some life review. Pt is reassured that is she is sad and having some grief that we want to be able to help her with that. She seems open to getting help.
[2020-09-17 16:00] VITALS: BP 137/71
--- NOTE | 2020-09-17 16:35 | NUR ---
CM/SS: [facility] [place] - Talked with Magaly as to patient and skilled stay.
--- NOTE | 2020-09-17 16:37 | NUR ---
CM/SS: [facility] accepted pt. They are also told of the possible referral to [facility].
--- NOTE | 2020-09-17 16:39 | NUR ---
CM/SS: Telephone call to Arsenio at [facility] - she obtains some information on pt and request a faxed packet. Information is faxed. ARSENIO TO VISIT PT AT 9:30AM VIA TELEPHONE.
--- NOTE | 2020-09-17 16:41 | NUR ---
CM/SS: Telephone call to Andrea - to let him know about pt being able to talk with someone as to her mood and grief. He is also open to talk to them as well to give them information on pt if needed.
--- NOTE | 2020-09-17 17:02 | NUR ---
CM/SS: Pt' spouse called and asked this worker to call his sister Snehal Snyder at [phone] - Call made to his sister Snehal - this worker can not give her any information at this time due to confidentiality. She is able to give this worker lots of information about pt and her brother - as to his difficulty caring for pt. Pt not bathing, and difficulty getting around the home. She would like to see her go to a skilled facility to get stronger. She is able to give the names of the children that have . She just wants what is best for pt and her brother.
[2020-09-17] MEDS: cefTRIAXone FOR IV USE 1,000 MG in WATER (STERILE) FOR INJECTION 10 ML IV SCH (17:20)
[2020-09-17] MEDS: polyethylene glycoL POWDER 17 GM (MIRALAX) PACK PO SCH (19:30)
[2020-09-18 00:26] VITALS: BP 106/57
[2020-09-18] MEDS: HYDROcodone/APAP 5 MG/325 MG (LORTAB) TAB PO PRN ×2 (00:36→20:57)
[2020-09-18 05:41] LABS: BASOPHILS % (AUTO) 0 % (0-10); EOSINOPHILS # (AUTO) 0.3 10^3/uL (0.0-0.3); EOSINOPHILS % (AUTO) 4 % (0-10); HEMATOCRIT 36 % (35-52); HEMOGLOBIN 11.5 g/dL (11.5-16.0); LYMPHOCYTES # (AUTO) 3.7 10^3/uL (1.0-4.0); LYMPHOCYTES % (AUTO) 43 % (12-44); MEAN CORPUSCULAR HEMOGLOBIN 28 pg (25-34); MEAN CORPUSCULAR HGB CONC 32 g/dL (32-36); MEAN CORPUSCULAR VOLUME 89 fL (80-99); MEAN PLATELET VOLUME 10.4 fL (9.0-12.2); MONOCYTES # (AUTO) 0.9 10^3/uL (0.0-1.0); MONOCYTES % (AUTO) 11 % (0-12); NEUTROPHILS # (AUTO) 3.5 10^3/uL (1.8-7.8); NEUTROPHILS % (AUTO) 41 % (42-75); PLATELET COUNT 309 10^3/uL (130-400); WHITE BLOOD COUNT 8.4 10^3/uL (4.3-11.0)
[2020-09-18] MEDS: inSUlin ASPART (NovoLOG) 1 UNIT/0.01 ML (CHARGE PER UNIT) SC SCH ×4 (05:58→20:49)
[2020-09-18] MEDS: CATHETER FLUSH 10 ML SYR IV SCH ×3 (05:59→20:55)
[2020-09-18 06:02] LABS: ALBUMIN 3.4 GM/DL (3.2-4.5); BILIRUBIN,TOTAL 0.3 MG/DL (0.1-1.0); CALCIUM 9.2 MG/DL (8.5-10.1); CREATININE SERUM 1.19 MG/DL (0.60-1.30); POTASSIUM 4.4 MMOL/L (3.6-5.0); TOTAL PROTEIN 6.1 GM/DL (6.4-8.2)
[2020-09-18 08:00] VITALS: BP 123/59
[2020-09-18] MEDS: metFORMIN 500 MG (GLUCOPHAGE) TAB PO SCH ×2 (08:30→17:43)
--- NOTE | 2020-09-18 08:41 | Occupational Ther Daily Note ---
OT Current Status-Daily Note ADL-Treatment Therapy Code Descriptions/Definitions Functional [place] Measure: 0=Not Assessed/NA 4=Minimal Assistance 1=Total Assistance 5=Supervision or Setup 2=Maximal Assistance 6=Modified [place] 3=Moderate Assistance 7=Complete IndependenceSCALE: Activities may be completed with or without assistive devices. 6-Jngmqldwpf-arlupea completes the activity by him/herself with no assistance from a helper. 5-Set-up or Clean-up Assistance-helper sets up or cleans up; patient completes activity. [place] assists only prior to or following the activity. 4-Supervision or Touching Assistance-helper provides verbal cues and/or touching/steadying and/or contact guard assistance as patient completes activity. Assistance may be provided throughout the activity or intermittently. 3-Partial/Moderate Assistance-helper does LESS THAN HALF the effort. [place] lifts, holds or supports trunk or limbs, but provides less than half the effort. 2-Substantial/Maximal Assistance-helper does MORE THAN HALF the effort. [place] lifts or holds trunk or limbs and provides more than half the effort. 2-Nfmxlrwhx-ltsnax does ALL the effort. Patient does none of the effort to complete the activity. Or, the assistance of 2 or more helpers is required for the patient to complete the activity. If activity was not attempted, code reason: 7-Patient Refused. 9-Not Applicable-not attempted and the patient did not perform the activity before the current illness, exacerbation or injury. 10-Not Attempted due to Environmental Limitations-(lack of equipment, weather restraints, etc.). 88-Not Attempted due to Medical Conditions or Safety Concerns. OT Nursing Home Goals Stage Director Goals Time Frame: Oct 03, 2020 Oral Hygiene (QC): 6 Toileting Hygiene (QC): 6 Shower/Bathe Self (QC): 4 Upper Body Dressing (QC): 6 Lower Body Dressing (QC): 4 On/Off Footwear (QC): 4 Additional Goals: 1-Demonstrate ADL Tasks, 2-Verbalize Understanding, 3-ImproveStrength/Farheen 1=Demonstrate adherence to instructed precautions during ADL tasks. 2=Patient will verbalize/demonstrate understanding of assistive devices/modifications for ADL. 3=Patient will improve strength/tolerance for activity to enable patient to perform ADL's. OT Education/Plan Treatment Plan/Plan of Care Patient would benefit from OT for education, treatment and training to promote independence in ADL's, mobility, safety and/or upper extremity function for ADL's. Treatment Duration: Oct 03, 2020 Estimated Hrs Per Day: .25 hour per day LAVERN RUSSO OT Sep 18, 2020 08:41
[2020-09-18] MEDS: LACTULOSE SYRUP 10GM/15ML (ENULOSE) 30ML UDC PO SCH ×2 (09:21→19:23)
[2020-09-18] MEDS: SENNA W/DOCUSATE (SENOKOT S) TABLET PO SCH ×2 (09:21→19:24)
[2020-09-18] MEDS: MELOXICAM 7.5 MG (MOBIC) TABLET PO SCH (09:27)
--- NOTE | 2020-09-18 09:38 | Occupational Ther Daily Note ---
OT Current Status-Daily Note Subjective Pt stated that she would rather stay in bed for a little bit longer than transfer to recliner. OT educated pt on benefits of sitting upright but declined, stating she needs rest. Agreeable to OT tx at bed. ADL-Treatment Therapy Code Descriptions/Definitions Functional [place] Measure: 0=Not Assessed/NA 4=Minimal Assistance 1=Total Assistance 5=Supervision or Setup 2=Maximal Assistance 6=Modified [place] 3=Moderate Assistance 7=Complete IndependenceSCALE: Activities may be completed with or without assistive devices. 4-Uekjkbsoyh-rtokeeh completes the activity by him/herself with no assistance from a helper. 5-Set-up or Clean-up Assistance-helper sets up or cleans up; patient completes activity. [place] assists only prior to or following the activity. 4-Supervision or Touching Assistance-helper provides verbal cues and/or touching/steadying and/or contact guard assistance as patient completes activity. Assistance may be provided throughout the activity or intermittently. 3-Partial/Moderate Assistance-helper does LESS THAN HALF the effort. [place] lifts, holds or supports trunk or limbs, but provides less than half the effort. 2-Substantial/Maximal Assistance-helper does MORE THAN HALF the effort. [place] lifts or holds trunk or limbs and provides more than half the effort. 3-Woxjgzqnz-ohpuzd does ALL the effort. Patient does none of the effort to complete the activity. Or, the assistance of 2 or more helpers is required for the patient to complete the activity. If activity was not attempted, code reason: 7-Patient Refused. 9-Not Applicable-not attempted and the patient did not perform the activity before the current illness, exacerbation or injury. 10-Not Attempted due to Environmental Limitations-(lack of equipment, weather restraints, etc.). 88-Not Attempted due to Medical Conditions or Safety Concerns. Oral Hygiene (QC): 4 (SBA for min cues wtih task.) Lower Body Dressing (QC): 1 (Assist for all components, rolling side to side at bed level to change brief) Toileting Hygiene (QC): 1 (Assistance needed for hygiene and clothing management, rolling side to side bed level.) Other Treatment Pt began tx laying supine in bed. When asked, pt stated that her brief needed to be changed. Pt rolled side to side in bed, CGA as OT performed all components of toilet hygiene and clothing management. Pt's HOB elevated, pt participated in oral hygiene, SBA for min verbal cues for sequencing of task. Pt scooted up towards HOB, assist x2. Post tx, pt laying in bed with all light in reach and all needs met. Education OT Patient Education: Correct positioning, Modified ADL techniques, Progress toward Goal/Update tx plan, Purpose of tx/functional activities Teaching Recipient: Patient Teaching Methods: Discussion Response to Teaching: Verbalize Understanding OT Mcfp Goals Mcfp Goals Time Frame: Oct 03, 2020 Oral Hygiene (QC): 6 Toileting Hygiene (QC): 6 Shower/Bathe Self (QC): 4 Upper Body Dressing (QC): 6 Lower Body Dressing (QC): 4 On/Off Footwear (QC): 4 Additional Goals: 1-Demonstrate ADL Tasks, 2-Verbalize Understanding, 3- ImproveStrength/Farheen 1=Demonstrate adherence to instructed precautions during ADL tasks. 2=Patient will verbalize/demonstrate understanding of assistive devices/modif ications for ADL. 3=Patient will improve strength/tolerance for activity to enable patient to perform ADL's. OT Education/Plan Problem List/Assessment Assessment: Decreased Activ Tolerance, Decreased UE Strength, Impaired Funct Balance, Impaired I ADL's, Impaired Self-Care Skills Discharge Recommendations Plan/Recommendations: Continue POC Treatment Plan/Plan of Care Patient would benefit from OT for education, treatment and training to promote independence in ADL's, mobility, safety and/or upper extremity function for ADL's. Plan of Care: ADL Retraining, Functional Mobility, UE Funct Exercise/Act Treatment Duration: Oct 03, 2020 Frequency: 5 times per week Estimated Hrs Per Day: .25 hour per day Rehab Potential: Fair Time/GCodes Start Time: 08:14 Stop Time: 08:27 Total Time Billed (hr/min): 13 Billed Treatment Time 1, ADL LAVERN RUSSO OT Sep 18, 2020 09:38
--- NOTE | 2020-09-18 10:40 | Physical Therapy Daily Note ---
PT Daily Note-Current Subjective Patient is much more alert on this date and agrees to PT. Mental Status Patient Orientation: Person, Time, Situation Transfers SCALE: Activities may be completed with or without assistive devices. 8-Sivyqqzzzz-kdiaplp completes the activity by him/herself with no assistance from a helper. 5-Set-up or Clean-up Assistance-helper sets up or cleans up; patient completes activity. [place] assists only prior to or following the activity. 4-Supervision or Touching Assistance-helper provides verbal cues and/or touching/steadying and/or contact guard assistance as patient completes activity. Assistance may be provided throughout the activity or intermittently. 3-Partial/Moderate Assistance-helper does LESS THAN HALF the effort. [place] lifts, holds or supports trunk or limbs, but provides less than half the effort. 2-Substantial/Maximal Assistance-helper does MORE THAN HALF the effort. [place] lifts or holds trunk or limbs and provides more than half the effort. 0-Zeatflzgu-wrwfmb does ALL the effort. Patient does none of the effort to complete the activity. Or, the assistance of 2 or more helpers is required for the patient to complete the activity. If activity was not attempted, code reason: 7-Patient Refused. 9-Not Applicable-not attempted and the patient did not perform the activity before the current illness, exacerbation or injury. 10-Not Attempted due to Environmental Limitations-(lack of equipment, weather restraints, etc.). 88-Not Attempted due to Medical Conditions or Safety Concerns. Lying to Sitting/Side of Bed(Q: 5 Sit to Stand (QC): 3 Chair/Kos-fa-Mvhmy Xfer(QC): 3 Weight Bearing Right Lower Extremity: Right Full Weight Bearing Left Lower Extremity: Left Weight Bearing/Tolerated Gait Training Distance: 10' Walk 10 feet (QC): 3 Walk 50 ft with 2 Turns(QC): 7 Walk 150 ft (QC): 7 Gait Assistive Device: FWW shuffle gait sequence/patient declined ambulating a distance Exercises Supine Ex: Ankle pumps, Quad Set, Heel Slides Supine Reps: 12 Seated Therapy Exercises: Ankle pumps, Long arc quads, Hip flexion Seated Reps: 15 Assessment Patient requires time to complete all functional tasks and remain on task. Patient is up in recliner with chair alarm activated. PT Short Term Goals Short Term Goals Time Frame: Sep 17, 2020 Roll Left & Right: 6 Sit to lyin Lying to sitting on side of be: 6 Sit to stand: 6 PT Senior Living Goals Senior Living Goals PT Senior Living Goals Time Frame: Sep 27, 2020 Roll Left & Right (QC): 6 Sit to Lying (QC): 6 Lying-Sitting on Side/Bed(QC): 6 Sit to Stand (QC): 6 Chair/Dht-hw-Dvpgc Xfer(QC): 6 Toilet Transfer (QC): 6 Car Transfer (QC): 4 Does the Patient Walk: No and Walking Goal IS indicated Walk 10 feet (QC): 6 Walk 50ft with 2 Turns (QC): 6 Walk 150 ft (QC): 6 Walking 10ft on Uneven Surface: 6 1 Step (curb) (QC): 4 4 Steps (QC): 4 12 Steps (QC): 9 Does the Pt use WC or Scooter?: No Type: N/A Type: N/A PT Plan Treatment/Plan Treatment Plan: Continue Plan of Care Treatment Plan: Bed Mobility, Education, Functional Activity Farhe[place], Functional Strength, Gait, Safety, Therapeutic Exercise, Transfers Treatment Duration: Sep 27, 2020 Frequency: 6 times per week Estimated Hrs Per Day: .25 hour per day Patient and/or Family Agrees t: Yes Time/GCodes Time In: 902 Time Out: 925 Total Billed Treatment Time: 23 Total Billed Treatment 1 visit EX 13 min FA 10 min TRINIDAD CAMACHO PT Sep 18, 2020 10:39
--- NOTE | 2020-09-18 11:33 | NUR ---
provided prayer and Communion.
[2020-09-18] MEDS ORDERED: FUROSEMIDE 40 MG/4 ML INJ (LASIX) IVP ONE (12:00)
--- NOTE | 2020-09-18 12:58 | Progress Note - Hospitalist ---
JAYSHREE RAE MED STUDENT 09/18/20 1257: Subjective HPI/CC On Admission Date Seen by Provider: Sep 18, 2020 Time Seen by Provider: 09:55 This 74-year-old woman presents to the emergency room with mobility issues after having a fall yesterday. She fell on her left hip and was seen in the emergency room. X-ray of the left hip was unremarkable. Today she complains of her "knees giving out". She was unable to get from her walker to bed and called EMS. She reports history of having numerous aspirations of knee effusion by Dr. Phillips in the past. She reports he also performed steroid injections with the aspirations. She has a small bruise on the superior aspect of her left knee. She has pain with range of motion. The knee appears swollen and warm anteriorly. She takes a full aspirin daily and Plavix Upon my arrival the morning the patient was feeling little bit better. She reported that she did not have any more pain then her normal arthritis pain in the right knee prior to her fall nor does she think it was warm or hot prior to her fall. She denies night sweats chills or fever. She had a depressed affect. 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 Subjective/Events-last exam Pt more communicative today than yesterday Reports decreased pain in L knee Pt eating well and rested last night Mild swelling of feet bilaterally - will start low dose Lasix Objective Exam Vital Signs Vital Signs Date Time Temp Pulse Resp B/P (MAP) Pulse Ox O2 Delivery O2 Flow Rate FiO2 09/18/20 08:00 36.0 81 18 123/59 (80) 94 Room Air 09/16/20 09:22 2.00 Capillary Refill : Less Than 3 SecondsLess Than 3 Seconds General Appearance: No Apparent Distress, WD/WN HEENT: PERRL/EOMI, Moist Mucous Membranes Neck: Full Range of Motion, Non Tender Respiratory: Chest Non Tender, Lungs Clear, Normal Breath Sounds, No Accessory Muscle Use, No Respiratory Distress Cardiovascular: Regular Rate, Rhythm, No Edema, No JVD, Normal Peripheral Pulses Gastrointestinal: Normal Bowel Sounds, Non Tender, Soft Back: Normal Inspection, No Vertebral Tenderness Extremity: Normal Capillary Refill, Normal Inspection, No Calf Tenderness, Pedal Edema (1+ bilaterally), Other Neurologic/Psychiatric: Alert, Oriented x3, Normal Mood/Affect Skin: Normal Color, Warm/Dry Lymphatic: No Adenopathy Results/Procedures Lab Laboratory Tests 09/18/20 05:33 Patient resulted labs reviewed. Assessment/Plan Assessment and Plan Assess & Plan/Chief Complaint Assessment: UTI Traumatic hemarthrosis left knee Poorly controlled T2DM Osteoarthritis HTN Hypercholesterolemia Hx of [place] CAD Depression Plan: Continue ABx Miralax added Monitor glucose control and continue sliding scale insulin Pain control with Hydrocodone q6h PRN PT/OT 09/16/20 Add lactulose, senna, polyethelene glycol for continued constipation PT/OT Continue pain control L knee Monitor glucose 09/17/20 Constipation resolved - d/c senna, lactulose and polyethelene PT/OT Social work needed 09/18/20 Added 20 mg Lasix Abx Transfer [facility] - [facility] seems to be the place that she will end up for rehab after this AYLA KRUSE DO 09/19/20 0542: Subjective Subjective/Events-last exam UTI maintained on Rocephin [facility] with [facility] will be taking the pt tomorrow Lasix given 20mg IV x1 and then will restart her home dose tomorrow 40 daily as needed Assessment/Plan Assessment and Plan Assess & Plan/Chief Complaint [facility]-psych tomorrow Supervisory-Addendum Brief Verification & Attestation Participated in pt care: history, MDM, physical Personally performed: exam, history, MDM, supervision of care Care discussed with: Medical Student Procedures: n/a Results interpretation: Verified all documentation Verification and Attestation of Medical Student E/M Service A medical student performed and documented this service in my presence. I reviewed and verified all information documented by the medical student and made modifications to such information, when appropriate. I personally performed the physical exam and medical decision making. Ayla Kruse, Sep 19, 2020,05:40 JAYSHREE RAE MED STUDENT Sep 18, 2020 12:57 AYLA KRUSE DO Sep 19, 2020 05:42
--- NOTE | 2020-09-18 14:03 | NUR ---
CM/SS: Pt assessed by Britney from [facility] -via phone. Pt meets criteria for inpatient admission. They are able to take pt on tomorrow 09/19/2020. Pt is ok to go to [facility]. They will send over paperwork for pt to sign. Paperwork sent - and signed by pt. They are emailed back to [facility].
--- NOTE | 2020-09-18 14:14 | NUR ---
CM/SS: Telephone call from [facility] can admit pt in the morning between 900 and 930am
--- NOTE | 2020-09-18 14:38 | NUR ---
CM/SS: Spouse Andrea is notified that pt will be able to go to [facility] on tomorrow. Pt can admit between 0900 -0930. Pt has been also admitted to [facility] and go there after she completes her stay at [facility]. Andrea will get her some items together and drop them off at the hospital.
--- NOTE | 2020-09-18 16:06 | NUR ---
Discharging to [facility] tomorrow 09/19, her ride is scheduled for 0845, doctor aware.
[2020-09-18 16:23] VITALS: BP 136/65
[2020-09-18] MEDS: polyethylene glycoL POWDER 17 GM (MIRALAX) PACK PO SCH (19:24)
[2020-09-18] MEDS ORDERED: ACHD5005 PO (20:54)
[2020-09-18] MEDS ORDERED: INSU100V16 SC (20:54)
[2020-09-18] MEDS ORDERED: CEFD300C3 PO (20:54)
[2020-09-18] MEDS ORDERED: INSU100V5 SQ (20:54)
[2020-09-18] MEDS ORDERED: MELO7.5T46 PO (20:54)
[2020-09-19] VITALS: BP 128/71
[2020-09-19] MEDS: inSUlin ASPART (NovoLOG) 1 UNIT/0.01 ML (CHARGE PER UNIT) SC SCH (05:28)
[2020-09-19] MEDS: CATHETER FLUSH 10 ML SYR IV SCH (05:28)
[2020-09-19 06:06] LABS: BASOPHILS % (AUTO) 0 % (0-10); EOSINOPHILS # (AUTO) 0.3 10^3/uL (0.0-0.3); EOSINOPHILS % (AUTO) 4 % (0-10); HEMATOCRIT 35 % (35-52); HEMOGLOBIN 11.1 g/dL (11.5-16.0); LYMPHOCYTES # (AUTO) 3.9 10^3/uL (1.0-4.0); LYMPHOCYTES % (AUTO) 48 % (12-44); MEAN CORPUSCULAR HEMOGLOBIN 28 pg (25-34); MEAN CORPUSCULAR HGB CONC 32 g/dL (32-36); MEAN CORPUSCULAR VOLUME 88 fL (80-99); MEAN PLATELET VOLUME 10.6 fL (9.0-12.2); MONOCYTES # (AUTO) 0.8 10^3/uL (0.0-1.0); MONOCYTES % (AUTO) 10 % (0-12); NEUTROPHILS # (AUTO) 3.1 10^3/uL (1.8-7.8); NEUTROPHILS % (AUTO) 38 % (42-75); PLATELET COUNT 326 10^3/uL (130-400); WHITE BLOOD COUNT 8.3 10^3/uL (4.3-11.0)
[2020-09-19 06:09] LABS: ALBUMIN 3.4 GM/DL (3.2-4.5); POTASSIUM 4.1 MMOL/L (3.6-5.0)
--- NOTE | 2020-09-19 06:09 | Discharge Summary ---
Diagnosis/Chief Complaint Date of Admission Sep 12, 2020 at 19:08 Date of Discharge Discharge Date: Sep 19, 2020 Discharge Diagnosis UTI Left knee hemoarthrosis Dementia Depression Discharge Summary Discharge Physical Examination Allergies: Coded Allergies: morphine (Verified Allergy, Mild, 07/12/14) Sulfa (Sulfonamide Antibiotics) (Verified Allergy, Unknown, 03/15/06) Vitals & I&Os Vital Signs Date Time Temp Pulse Resp B/P (MAP) Pulse Ox O2 Delivery O2 Flow Rate FiO2 09/19/20 08:00 94 Room Air 09/19/20 07:43 36.0 76 16 127/63 (84) 09/16/20 09:22 2.00 General Appearance: Alert, Oriented X3, Cooperative Respiratory: Clear to Auscultation Cardiovascular: Regular Rate Hospital Course Was the Problem List Reviewed?: Yes Standard course after admitted for multiple falls with UTI and left knee pain from hemoarthrosis. Dr Talamantes consulted. No intervention available. Pain controlled with meds. UTI treatment with Rocephin. Misti-psych assessed her to be meeting criteria for admit to [facility] due to severe depression. Labs (last 24 hrs) Laboratory Tests 09/12/20 16:16: White Blood Count 11.5H, Red Blood Count 4.48, Hemoglobin 12.7, Hematocrit 39, Mean Corpuscular Volume 88, Mean Corpuscular Hemoglobin 28, Mean Corpuscular Hemoglobin Concent 32, Red Cell Distribution Width 14.6H, Platelet Count 295, Mean Platelet Volume 10.1, Immature Granulocyte % (Auto) 0, Neutrophils (%) (Auto) 64, Lymphocytes (%) (Auto) 26, Monocytes (%) (Auto) 9, Eosinophils (%) (Auto) 1, Basophils (%) (Auto) 0, Neutrophils # (Auto) 7.3, Lymphocytes # (Auto) 3.0, Monocytes # (Auto) 1.0, Eosinophils # (Auto) 0.1, Basophils # (Auto) 0.0, Immature Granulocyte # (Auto) 0.0, Erythrocyte Sedimentation Rate 25, Sodium Level 140, Potassium Level 4.1, Chloride Level 104, Carbon Dioxide Level 21, Anion Gap 15H, Blood Urea Nitrogen 21H, Creatinine 1.27, Estimat Glomerular Filtration Rate 41, BUN/Creatinine Ratio 17, Glucose Level 239H, Uric Acid 6.7, Calcium Level 9.5, Magnesium Level 1.7, C-Reactive Protein High Sensitivity 13.08H 09/12/20 17:00: Urine Color YELLOW, Urine Clarity CLOUDY, Urine pH 5.0, Urine Specific [place] >=1.030, Urine Protein TRACEH, Urine Glucose (UA) 2+H, Urine Ketones TRACEH, Urine Nitrite NEGATIVE, Urine Bilirubin NEGATIVE, Urine Urobilinogen 0.2, Urine Leukocyte Esterase TRACEH, Urine RBC (Auto) 1+H, Urine RBC 2-5H, Urine WBC 5-10H , Urine Crystals PRESENTH, Urine Amorphous Sediment MOD JENNIFER URATESH, Urine Bacteria LARGEH, Urine Casts NONE, Urine Mucus NEGATIVE, Urine Culture Indicated YES 09/12/20 19:08: Lab Scanned Report Referred Lab Report 09/13/20 05:50: Sodium Level 137, Potassium Level 4.4, Chloride Level 105, Carbon Dioxide Level 18L, Anion Gap 14, Blood Urea Nitrogen 21H, Creatinine 1.21, Estimat Glomerular Filtration Rate 43, BUN/Creatinine Ratio 17, Glucose Level 275H, Calcium Level 9.1, C-Reactive Protein High Sensitivity 15.82H 09/13/20 10:51: Glucometer 303H 09/13/20 16:18: Glucometer 186H 09/13/20 20:42: Glucometer 210H 09/14/20 05:29: Glucometer 112H 09/14/20 06:32: Glucometer 109 09/14/20 10:58: Glucometer 112H 09/14/20 15:55: Glucometer 118H 09/14/20 20:13: Glucometer 157H 09/15/20 05:41: Glucometer 84 09/15/20 05:42: White Blood Count 9.0, Red Blood Count 3.97, Hemoglobin 11.3L, Hematocrit 35, Mean Corpuscular Volume 89, Mean Corpuscular Hemoglobin 29, Mean Corpuscular Hemoglobin Concent 32, Red Cell Distribution Width 14.6H, Platelet Count 260, Mean Platelet Volume 10.8, Immature Granulocyte % (Auto) 0, Neutrophils (%) (Auto) 52, Lymphocytes (%) (Auto) 31, Monocytes (%) (Auto) 11, Eosinophils (%) (Auto) 5, Basophils (%) (Auto) 0, Neutrophils # (Auto) 4.7, Lymphocytes # (Auto) 2.8, Monocytes # (Auto) 1.0, Eosinophils # (Auto) 0.5H, Basophils # (Auto) 0.0, Immature Granulocyte # (Auto) 0.0, Sodium Level 137, Potassium Level 4.2, Chloride Level 106, Carbon Dioxide Level 20L, Anion Gap 11, Blood Urea Nitrogen 32H, Creatinine 1.28, Estimat Glomerular Filtration Rate 41, BUN/Creatinine Ra cale 25, Glucose Level 84, Calcium Level 9.1, Corrected Calcium 9.7, Total Bilirubin 0.4, Aspartate Amino Transf (AST/SGOT) 26, Alanine Aminotransferase (ALT/SGPT) 21, Alkaline Phosphatase 73, Total Protein 6.2L, Albumin 3.3 09/15/20 11:19: Glucometer 143H 09/15/20 16:03: Glucometer 132H 09/15/20 20:15: Glucometer 144H 09/16/20 05:24: White Blood Count 7.6, Red Blood Count 4.00, Hemoglobin 11.2L, Hematocrit 35, Mean Corpuscular Volume 89, Mean Corpuscular Hemoglobin 28, Mean Corpuscular Hemoglobin Concent 32, Red Cell Distribution Width 14.6H, Platelet Count 278, Mean Platelet Volume 11.1, Immature Granulocyte % (Auto) 0, Neutrophils (%) (Auto) 39L, Lymphocytes (%) (Auto) 44, Monocytes (%) (Auto) 11, Eosinophils (%) (Auto) 5, Basophils (%) (Auto) 0, Neutrophils # (Auto) 3.0, Lymphocytes # (Auto) 3.3, Monocytes # (Auto) 0.8, Eosinophils # (Auto) 0.4H, Basophils # (Auto) 0.0, Immature Granulocyte # (Auto) 0.0, Sodium Level 137, Potassium Level 4.2, Chloride Level 107, Carbon Dioxide Level 20L, Anion Gap 10, Blood Urea Nitrogen 32H, Creatinine 1.14, Estimat Glomerular Filtration Rate 46, BUN/Creatinine Ratio 28, Glucose Level 94, Calcium Level 8.9, Corrected Calcium 9.5, Total Bilirubin 0.4, Aspartate Amino Transf (AST/SGOT) 24, Alanine Aminotransferase (ALT/SGPT) 20, Alkaline Phosphatase 74, Total Protein 6.2L, Albumin 3.3 09/16/20 11:23: Glucometer 128H 09/16/20 15:33: Glucometer 178H 09/16/20 20:09: Glucometer 117H 09/17/20 05:22: White Blood Count 8.0, Red Blood Count 4.01, Hemoglobin 11.4L, Hematocrit 36, Mean Corpuscular Volume 89, Mean Corpuscular Hemoglobin 28, Mean Corpuscular Hemoglobin Concent 32, Red Cell Distribution Width 14.5, Platelet Count 302, Mean Platelet Volume 10.6, Immature Granulocyte % (Auto) 0, Neutrophils (%) (Auto) 46, Lymphocytes (%) (Auto) 38, Monocytes (%) (Auto) 11, Eosinophils (%) (Auto) 4, Basophils (%) (Auto) 0, Neutrophils # (Auto) 3.7, Lymphocytes # (Auto) 3.1, Monocytes # (Auto) 0.9, Eosinophils # (Auto) 0.3, Basophils # (Auto) 0.0, Immature Granulocyte # (Auto) 0.0, Sodium Level 137, Potassium Level 4.3, Chlo ride Level 106, Carbon Dioxide Level 21, Anion Gap 10, Blood Urea Nitrogen 26H, Creatinine 1.05, Estimat Glomerular Filtration Rate 51, BUN/Creatinine Ratio 25, Glucose Level 108H, Calcium Level 8.9, Corrected Calcium 9.4, Total Bilirubin 0.4, Aspartate Amino Transf (AST/SGOT) 21, Alanine Aminotransferase (ALT/SGPT) 24, Alkaline Phosphatase 74, Total Protein 6.1L, Albumin 3.4, Thyroid Stimulating Hormone (TSH) 1.62 09/17/20 11:26: Glucometer 182H 09/17/20 16:35: Glucometer 135H 09/17/20 20:16: Glucometer 162H 09/18/20 05:33: White Blood Count 8.4, Red Blood Count 4.08, Hemoglobin 11.5, Hematocrit 36, Mean Corpuscular Volume 89, Mean Corpuscular Hemoglobin 28, Mean Corpuscular He moglobin Concent 32, Red Cell Distribution Width 14.6H, Platelet Count 309, Mean Platelet Volume 10.4, Immature Granulocyte % (Auto) 0, Neutrophils (%) (Auto) 41L, Lymphocytes (%) (Auto) 43, Monocytes (%) (Auto) 11, Eosinophils (%) (Auto) 4, Basophils (%) (Auto) 0, Neutrophils # (Auto) 3.5, Lymphocytes # (Auto) 3.7, Monocytes # (Auto) 0.9, Eosinophils # (Auto) 0.3, Basophils # (Auto) 0.0, Immature Granulocyte # (Auto) 0.0, Sodium Level 138, Potassium Level 4.4, Chlo ride Level 107, Carbon Dioxide Level 20L, Anion Gap 11, Blood Urea Nitrogen 29H, Creatinine 1.19, Estimat Glomerular Filtration Rate 44, BUN/Creatinine Ratio 24, Glucose Level 89, Calcium Level 9.2, Corrected Calcium 9.7, Total Bilirubin 0.3, Aspartate Amino Transf (AST/SGOT) 24, Alanine Aminotransferase (ALT/SGPT) 22, Alkaline Phosphatase 68, Total Protein 6.1L, Albumin 3.4 09/18/20 05:43: Glucometer 84 09/18/20 09:09: Glucometer 86 09/18/20 10:41: Glucometer 124H 09/18/20 16:08: Glucometer 155H 09/18/20 20:33: Glucometer 190H 09/19/20 05:27: Glucometer 77 09/19/20 05:29: White Blood Count 8.3, Red Blood Count 3.94, Hemoglobin 11.1L, Hematocrit 35, Mean Corpuscular Volume 88, Mean Corpuscular Hemoglobin 28, Mean Corpuscular Hemoglobin Concent 32, Red Cell Distribution Width 14.6H, Platelet Count 326, Mean Platelet Volume 10.6, Immature Granulocyte % (Auto) 0, Neutrophils (%) (Auto) 38L, Lymphocytes (%) (Auto) 48H, Monocytes (%) (Auto) 10, Eosinophils (%) (Auto) 4, Basophils (%) (Auto) 0, Neutrophils # (Auto) 3.1, Lymphocytes # (Auto) 3.9, Monocytes # (Auto) 0.8, Eosinophils # (Auto) 0.3, Basophils # (Auto) 0.0, Immature Granulocyte # (Auto) 0.0, Sodium Level 135, Potassium Level 4.1, Chloride Level 103, Carbon Dioxide Level 20L, Anion Gap 12, Blood Urea Nitrogen 28H, Creatinine 1.19, Estimat Glomerular Filtration Rate 44, BUN/Creatinine Ratio 24, Glucose Level 80, Calcium Level 9.1, Corrected Calcium 9.6, Total Bilirubin 0.3, Aspartate Amino Transf (AST/SGOT) 21, Alanine Aminotransferase (ALT/SGPT) 23, Alkaline Phosphatase 66, Total Protein 6.0L, Albumin 3.4 09/19/20 07:10: Coronavirus 2019 (MINI) Negative 09/19/20 07:15: Coronavirus (COVID-19)(PCR) Negative Microbiology 09/12/20 Urine Culture - Final, Complete Escherichia coli Klebsiella pneumoniae Aerococcus urinae See Comments Pending Labs Microbiology Date/Time Source Procedure Growth Status 09/12/20 17:00 Urine Clean Catch Urine Culture - Final Escherichia coli Klebsiella pneumoniae Aerococcus urinae See Comments Complete Laboratory Tests 09/12/20 16:16: White Blood Count 11.5, Red Blood Count 4.48, Hemoglobin 12.7, Hematocrit 39, Mean Corpuscular Volume 88, Mean Corpuscular Hemoglobin 28, Mean Corpuscular Hemoglobin Concent 32, Red Cell Distribution Width 14.6, Platelet Count 295, Mean Platelet Volume 10.1, Immature Granulocyte % (Auto) 0, Neutrophils (%) (A uto) 64, Lymphocytes (%) (Auto) 26, Monocytes (%) (Auto) 9, Eosinophils (%) (Auto) 1, Basophils (%) (Auto) 0, Neutrophils # (Auto) 7.3, Lymphocytes # (Auto) 3.0, Monocytes # (Auto) 1.0, Eosinophils # (Auto) 0.1, Basophils # (Auto) 0.0, Immature Granulocyte # (Auto) 0.0, Erythrocyte Sedimentation Rate 25, Sodium Level 140, Potassium Level 4.1, Chloride Level 104, Carbon Dioxide Level 21, Anion Gap 15, Blood Urea Nitrogen 21, Creatinine 1.27, Estimat Glomerular Filtration Rate 41, BUN/Creatinine Ratio 17, Glucose Level 239, Uric Acid 6.7, Calcium Level 9.5, Magnesium Level 1.7, C-Reactive Protein High Sensitivity 13.08 09/12/20 17:00: Urine Color YELLOW, Urine Clarity CLOUDY, Urine pH 5.0, Urine Specific [place] >=1.030, Urine Protein TRACE, Urine Glucose (UA) 2+, Urine Ketones TRACE, Urine Nitrite NEGATIVE, Urine Bilirubin NEGATIVE, Urine Urobilinogen 0.2, Urine L eukocyte Esterase TRACE, Urine RBC (Auto) 1+, Urine RBC 2-5, Urine WBC 5-10, Urine Crystals PRESENT, Urine Amorphous Sediment MOD JENNIFER URATES, Urine Bacteria LARGE, Urine Casts NONE, Urine Mucus NEGATIVE, Urine Culture Indicated YES 09/12/20 19:08: Lab Scanned Report Referred Lab Report 09/13/20 05:50: Sodium Level 137, Potassium Level 4.4, Chloride Level 105, Carbon Dioxide Level 18, Anion Gap 14, Blood Urea Nitrogen 21, Creatinine 1.21, Estimat Glomerular Filtration Rate 43, BUN/Creatinine Ratio 17, Glucose Level 275, Calcium Level 9.1, C-Reactive Protein High Sensitivity 15.82 09/13/20 10:51: Glucometer 303 09/13/20 16:18: Glucometer 186 09/13/20 20:42: Glucometer 210 09/14/20 05:29: Glucometer 112 09/14/20 06:32: Glucometer 109 09/14/20 10:58: Glucometer 112 09/14/20 15:55: Glucometer 118 09/14/20 20:13: Glucometer 157 09/15/20 05:41: Glucometer 84 09/15/20 05:42: White Blood Count 9.0, Red Blood Count 3.97, Hemoglobin 11.3, Hematocrit 35, Mean Corpuscular Volume 89, Mean Corpuscular Hemoglobin 29, Mean Corpuscular Hem oglobin Concent 32, Red Cell Distribution Width 14.6, Platelet Count 260, Mean Platelet Volume 10.8, Immature Granulocyte % (Auto) 0, Neutrophils (%) (Auto) 52, Lymphocytes (%) (Auto) 31, Monocytes (%) (Auto) 11, Eosinophils (%) (Auto) 5, Basophils (%) (Auto) 0, Neutrophils # (Auto) 4.7, Lymphocytes # (Auto) 2.8, Monocytes # (Auto) 1.0, Eosinophils # (Auto) 0.5, Basophils # (Auto) 0.0, Immature Granulocyte # (Auto) 0.0, Sodium Level 137, Potassium Level 4.2, Chloride Level 106, Carbon Dioxide Level 20, Anion Gap 11, Blood Urea Nitrogen 32, Creatinine 1.28, Estimat Glomerular Filtration Rate 41, BUN/Creatinine Ratio 25, Glucose Level 84, Calcium Level 9.1, Corrected Calcium 9.7, Total Bilirubin 0.4, Aspartate Amino Transf (AST/SGOT) 26, Alanine Aminotransferase (ALT/SGPT) 21, Alkaline Phosphatase 73, Total Protein 6.2, Albumin 3.3 09/15/20 11:19: Glucometer 143 09/15/20 16:03: Glucometer 132 09/15/20 20:15: Glucometer 144 09/16/20 05:24: White Blood Count 7.6, Red Blood Count 4.00, Hemoglobin 11.2, Hematocrit 35, Mean Corpuscular Volume 89, Mean Corpuscular Hemoglobin 28, Mean Corpuscular Hemoglobin Concent 32, Red Cell Distribution Width 14.6, Platelet Count 278, Mean Platelet Volume 11.1, Immature Granulocyte % (Auto) 0, Neutrophils (%) (Auto) 39, Lymphocytes (%) (Auto) 44, Monocytes (%) (Auto) 11, Eosinophils (%) (Auto) 5, Basophils (%) (Auto) 0, Neutrophils # (Auto) 3.0, Lymphocytes # (Auto) 3.3, Monocytes # (Auto) 0.8, Eosinophils # (Auto) 0.4, Basophils # (Auto) 0.0, Immature Granulocyte # (Auto) 0.0, Sodium Level 137, Potassium Level 4.2, Chloride Level 107, Carbon Dioxide Level 20, Anion Gap 10, Blood Urea Nitrogen 32, Creatinine 1.14, Estimat Glomerular Filtration Rate 46, BUN/Creatinine Ratio 28, Glucose Level 94, Calcium Level 8.9, Corrected Calcium 9.5, Total Bilirubin 0.4, Aspartate Amino Transf (AST/SGOT) 24, Alanine Aminotransferase (ALT/SGPT) 20, Alkaline Phosphatase 74, Total Protein 6.2, Albumin 3.3 09/16/20 11:23: Glucometer 128 09/16/20 15:33: Glucometer 178 09/16/20 20:09: Glucometer 117 09/17/20 05:22: White Blood Count 8.0, Red Blood Count 4.01, Hemoglobin 11.4, Hematocrit 36, Mean Corpuscular Volume 89, Mean Corpuscular Hemoglobin 28, Mean Corpuscular Hemoglobin Concent 32, Red Cell Distribution Width 14.5, Platelet Count 302, Mean Platelet Volume 10.6, Immature Granulocyte % (Auto) 0, Neutrophils (%) (Auto) 46, Lymphocytes (%) (Auto) 38, Monocytes (%) (Auto) 11, Eosinophils (%) (Auto) 4, Basophils (%) (Auto) 0, Neutrophils # (Auto) 3.7, Lymphocytes # (Auto) 3.1, Monocytes # (Auto) 0.9, Eosinophils # (Auto) 0.3, Basophils # (Auto) 0.0, Immature Granulocyte # (Auto) 0.0, Sodium Level 137, Potassium Level 4.3, Chloride Level 106, Carbon Dioxide Level 21, Anion Gap 10, Blood Urea Nitrogen 26, Creatinine 1.05, Estimat Glomerular Filtration Rate 51, BUN/Creatinine Ratio 25, Glucose Level 108, Calcium Level 8.9, Corrected Calcium 9.4, Total Bilirubin 0.4, Aspartate Amino Transf (AST/SGOT) 21, Alanine Aminotransferase (ALT/SGPT) 24, Alkaline Phosphatase 74, Total Protein 6.1, Albumin 3.4, Thyroid Stimulating Hormone (TSH) 1.62 09/17/20 11:26: Glucometer 182 09/17/20 16:35: Glucometer 135 09/17/20 20:16: Glucometer 162 09/18/20 05:33: White Blood Count 8.4, Red Blood Count 4.08, Hemoglobin 11.5, Hematocrit 36, Mean Corpuscular Volume 89, Mean Corpuscular Hemoglobin 28, Mean Corpuscular Hemoglobin Concent 32, Red Cell Distribution Width 14.6, Platelet Count 309, Mean Platelet Volume 10.4, Immature Granulocyte % (Auto) 0, Neutrophils (%) (Auto) 41, Lymphocytes (%) (Auto) 43, Monocytes (%) (Auto) 11, Eosinophils (%) (Auto) 4, Basophils (%) (Auto) 0, Neutrophils # (Auto) 3.5, Lymphocytes # (Auto) 3.7, Monocytes # (Auto) 0.9, Eosinophils # (Auto) 0.3, Basophils # (Auto) 0.0, Immature Granulocyte # (Auto) 0.0, Sodium Level 138, Potassium Level 4.4, Chloride Level 107, Carbon Dioxide Level 20, Anion Gap 11, Blood Urea Nitrogen 29, Creatinine 1.19, Estimat Glomerular Filtration Rate 44, BUN/Creatinine Ratio 24, Glucose Level 89, Calcium Level 9.2, Corrected Calcium 9.7, Total Bilirubin 0.3, Aspartate Amino Transf (AST/SGOT) 24, Alanine Aminotransferase (ALT/SGPT) 22, Alkaline Phosphatase 68, Total Protein 6.1, Albumin 3.4 09/18/20 05:43: Glucometer 84 09/18/20 09:09: Glucometer 86 09/18/20 10:41: Glucometer 124 09/18/20 16:08: Glucometer 155 09/18/20 20:33: Glucometer 190 09/19/20 05:27: Glucometer 77 09/19/20 05:29: White Blood Count 8.3, Red Blood Count 3.94, Hemoglobin 11.1, Hematocrit 35, Mean Corpuscular Volume 88, Mean Corpuscular Hemoglobin 28, Mean Corpuscular Hemoglobin Concent 32, Red Cell Distribution Width 14.6, Platelet Count 326, Mean Platelet Volume 10.6, Immature Granulocyte % (Auto) 0, Neutrophils (%) (Auto) 38, Lymphocytes (%) (Auto) 48, Monocytes (%) (Auto) 10, Eosinophils (%) (Auto) 4, Basophils (%) (Auto) 0, Neutrophils # (Auto) 3.1, Lymphocytes # (Auto) 3.9, Monocytes # (Auto) 0.8, Eosinophils # (Auto) 0.3, Basophils # (Auto) 0.0, Immature Granulocyte # (Auto) 0.0, Sodium Level 135, Potassium Level 4.1, Chloride Level 103, Carbon Dioxide Level 20, Anion Gap 12, Blood Urea Nitrogen 28, Creatinine 1.19, Estimat Glomerular Filtration Rate 44, BUN/Creatinine Ratio 24, Glucose Level 80, Calcium Level 9.1, Corrected Calcium 9.6, Total Bilirubin 0.3, Aspartate Amino Transf (AST/SGOT) 21, Alanine Aminotransferase (ALT/SGPT) 23, Alkaline Phosphatase 66, Total Protein 6.0, Albumin 3.4 09/19/20 07:10: Coronavirus 2019 (MINI) Negative 09/19/20 07:15: Coronavirus (COVID-19)(PCR) Negative Discharge Home Medications: Active Scripts Active Cefdinir 300 Mg Capsule 300 Mg PO BID 3 Days Levemir (Insulin Determir) 1,000 Units/10 Ml Soln 15 Unit SQ HS 30 Days Novolog (Insulin Aspart) 100 Unit/1 Ml Susp 0 Unit SC ACHS 30 Days HYDROcodone/APAP 5 MG/325 MG TAB (Acetaminophen/Hydrocodone Bitart) 1 Tab Tab 1 Tab PO Q6H PRN 30 Days Meloxicam 7.5 Mg Tablet 15 Mg PO DAILY 30 Days Reported Formula Tablet ( Vits #93/Iron Fum/FA) 1 Each Tablet 1 Each PO DAILY Metformin HCl ER (Metformin HCl) 500 Mg Tab.er.24h 1,000 Mg PO BID TAKES 2 (500MG) TABLETS Furosemide 40 Mg Tablet 40 Mg PO DAILY PRN Magnesium (Magnesium Oxide) 400 Mg Tablet 400 Mg PO HS Clopidogrel (Clopidogrel Bisulfate) 75 Mg Tablet 75 Mg PO DAILY Instructions to patient/family Please see electronic discharge instructions given to patient. DIONY KRUSE DO Sep 19, 2020 06:09
[2020-09-19 06:10] LABS: CALCIUM 9.1 MG/DL (8.5-10.1)
[2020-09-19 06:13] LABS: BILIRUBIN,TOTAL 0.3 MG/DL (0.1-1.0)
[2020-09-19 06:15] LABS: CREATININE SERUM 1.19 MG/DL (0.60-1.30)
[2020-09-19 07:43] VITALS: BP 127/63
[2020-09-19] MEDS: MELOXICAM 7.5 MG (MOBIC) TABLET PO SCH (08:19)
[2020-09-19] MEDS: metFORMIN 500 MG (GLUCOPHAGE) TAB PO SCH (08:20)
[2020-09-19] MEDS: SENNA W/DOCUSATE (SENOKOT S) TABLET PO SCH (08:21)
[2020-09-19] MEDS: LACTULOSE SYRUP 10GM/15ML (ENULOSE) 30ML UDC PO SCH (08:21)
--- NOTE | 2020-09-19 09:54 | NUR ---
CARLITO DELCID I demonstrates some understanding of discharge instructions. Copy of Post-Discharge Instructions given provided. ACRLITO DELCID Iis not able to manage continuing needs after discharge and she is being discharge to [facility]. Patients belongings returned. Patient discharged from [facility] on 09/19/20 0845 at . CARLITO DELCID I left floor via private vehical, accompanied by class [employer] truck driver. Nurse to nurse report given to [place].
--- NOTE | 2020-09-19 10:24 | NUR ---
CM/SS: [facility] notified by Kari Leon LMSW that pt needed to be transported to [facility] to arrive around 900 to 930am today.
--- NOTE | 2020-09-19 12:14 | NUR ---
CM/SS: Finalized information is faxed to [facility] has called requesting copy of COVID test. This worker sent via email (scan) and also faxed the information as well.
--- NOTE | 2020-09-19 12:18 | NUR ---
CM/SS: Pt is ready to discharge - [facility] here to car pick up driver pt. Pt has belongings and is ready to go. Pt expressed appreciation of this workers services. Pt is wished well.
== END 2020-09-19 08:45 | DRG 563 ==
LOC: EDUNIT# 15:39 → ER 15:40 → 4TH 19:08
PROVIDERS: ADMIT Internal Medicine; ATTEND Internal Medicine
DX: S83.92XA Sprain of unspecified site of left knee, initial encounter (principal); N39.0 Urinary tract infection, site not specified; F32.2 Major depressive disorder, single episode, severe without psychotic features; Z20.822 Contact with and (suspected) exposure to COVID-19; I25.10 Atherosclerotic heart disease of native coronary artery without angina pectoris; E78.00 Pure hypercholesterolemia, unspecified; I10 Essential (primary) hypertension; M19.90 Unspecified osteoarthritis, unspecified site; R41.82 Altered mental status, unspecified; E11.65 Type 2 diabetes mellitus with hyperglycemia; M17.12 Unilateral primary osteoarthritis, left knee; F03.90 Unspecified dementia, unspecified severity, without behavioral disturbance, psychotic disturbance, mood disturbance, and anxiety; W18.30XA Fall on same level, unspecified, initial encounter; B96.89 Other specified bacterial agents as the cause of diseases classified elsewhere; I25.2 Old myocardial infarction; Z88.2 Allergy status to sulfonamides; Z88.5 Allergy status to narcotic agent; Z79.4 Long term (current) use of insulin
CPT/HCPCS: 36415; 73562; 80048; 80053; 81000; 82962; 83735; 84443; 84550; 85025; 85652; 86141; 87077; 87088; 87186; 87635; 94760; 96361; 96365

== ENCOUNTER → 2021-06-24 | Outpatient (CLI) | payer MEDICARE ==
[~2021-06-24] MED LIST changes: +ACHD5005 PO; +ASPI325T32 PO; +ATOR40TA PO; +CEFD300C3 PO; +CLOP75TA28 PO; +DIPH25TA65 PO; +INSU100V16 SC; +INSU100V5 SQ; +MAGN400T39 PO; +MELO7.5T46 PO; +METF-865 PO; +PNV1TABL9 PO; +PREN-102 PO
--- NOTE | 2021-06-24 09:16 | Diagnostic Imaging Report ---
PROCEDURE: CT head without contrast. TECHNIQUE: Multiple contiguous axial images were obtained through the brain without the use of intravenous contrast. Auto Exposure Controls were utilized during the CT exam to meet ALARA standards for radiation dose reduction. INDICATION: Dementia and behavioral disturbance. Comparison is made with prior CT head from 04/18/2014. Ventricles and sulci are prominent consistent with cerebral atrophy. There is moderate periventricular hypodensity noted consistent with chronic microvascular ischemia. No sulcal effacement is identified. There is no midline shift. No acute intra-axial or extra-axial hemorrhage is detected. Cisterns are patent. Visualized paranasal sinuses are clear. IMPRESSION: Cerebral atrophy with changes of chronic microvascular ischemia. No acute intracranial process is detected. Dictated by: Dictated on workstation # [id number]
== END ==
LOC: RAD 08:45
DX: G31.9 Degenerative disease of nervous system, unspecified (principal); I67.82 Cerebral ischemia
CPT/HCPCS: 70450

== ENCOUNTER 2021-07-28 09:40 | Inpatient (IN) | payer MEDICARE ==
[~2021-07-28] VITALS: Ht 157.5 cm; Wt 87.0 kg
--- NOTE | 2021-07-28 10:04 | Diagnostic Imaging Report ---
PROCEDURE: CT head wo r/o stroke. TECHNIQUE: Multiple contiguous axial images were obtained through the brain without the use of intravenous contrast. Auto Exposure Controls were utilized during the CT exam to meet ALARA standards for radiation dose reduction. INDICATION: 75-year-old female, possible stroke with neurological deficit, slurred speech. CORRELATION: 06/24/2021 FINDINGS: There are diffuse atrophic changes with prominence of the ventricles and sulci. There are scattered areas of decreased attenuation, nonspecific but likely changes of chronic small vessel ischemic disease. More focal small regional area low-attenuation right posterior periventricular region appears unchanged. There is otherwise normal rojas-white differentiation. No abnormal areas of attenuation to suggest edema from ischemia. No hyperdense intracranial vascular sign. There is no midline shift or mass effect. No evidence for acute intracranial hemorrhage or abnormal extra-axial fluid collection. Prior bilateral lens replacement. Bony calvarium is intact. Paranasal sinuses are clear. Mastoid air cells also appear clear. IMPRESSION: 1. No CT evidence for acute intracranial abnormality. 2. Age-related atrophic changes with changes of small vessel ischemic disease. Telephone call has been made to the [facility] emergency department, 9:58 AM. Dictated by: Dictated on workstation # [id number]
--- NOTE | 2021-07-28 10:06 | Diagnostic Imaging Report ---
INDICATION: Possible stroke, slurred speech, neurological deficit. TECHNIQUE: Single view chest 9:41 AM. CORRELATION STUDY: 07/15/2014 FINDINGS: Limited depth of inspiration. Atelectasis at the right lung base. No infiltrate. Heart size borderline enlarged. Mediastinum prominent without evidence of overt failure. Right-sided central line has been removed. IMPRESSION: 1. Hypoventilation with right basilar atelectasis and/or scarring. Negative for acute cardiopulmonary abnormality. Dictated by: Dictated on workstation # [id number]
[2021-07-28] MEDS ORDERED: LORazepam INJ 2 MG/ML (ATIVAN) VIAL ONE (10:17)
[2021-07-28 10:31] LABS: BILIRUBIN,URINE NEGATIVE (NEGATIVE); CLARITY,URINE CLEAR; COLOR,URINE YELLOW; GLUCOSE, URINE (UA) NEGATIVE (NEGATIVE); KETONES,URINE 1+ (NEGATIVE); LEUKOCYTE ESTERASE ,URINE 2+ (NEGATIVE); NITRITE,URINE NEGATIVE (NEGATIVE); PROTEIN,URINE NEGATIVE (NEGATIVE)
[2021-07-28 10:32] LABS: BASOPHILS # (AUTO) 0.1 10^3/uL (0.0-0.1); BASOPHILS % (AUTO) 1 % (0-10); EOSINOPHILS # (AUTO) 0.2 10^3/uL (0.0-0.3); EOSINOPHILS % (AUTO) 2 % (0-10); HEMATOCRIT 41 % (35-52); LYMPHOCYTES % (AUTO) 17 % (12-44); MEAN CORPUSCULAR HEMOGLOBIN 28 pg (25-34); MEAN CORPUSCULAR HGB CONC 32 g/dL (32-36); MEAN CORPUSCULAR VOLUME 87 fL (80-99); MEAN PLATELET VOLUME 11.8 fL (9.0-12.2); MONOCYTES # (AUTO) 1.7 10^3/uL (0.0-1.0); MONOCYTES % (AUTO) 15 % (0-12); NEUTROPHILS # (AUTO) 7.3 10^3/uL (1.8-7.8); NEUTROPHILS % (AUTO) 65 % (42-75); PLATELET COUNT 164 10^3/uL (130-400); WHITE BLOOD COUNT 11.3 10^3/uL (4.3-11.0)
[2021-07-28 10:39] LABS: ALBUMIN 3.9 GM/DL (3.2-4.5); CHLORIDE 98 MMOL/L (98-107)
[2021-07-28 10:40] LABS: POTASSIUM 4.5 MMOL/L (3.6-5.0); SODIUM 140 MMOL/L (135-145)
[2021-07-28 10:41] LABS: CALCIUM 9.4 MG/DL (8.5-10.1)
[2021-07-28 10:42] LABS: GLUCOSE 153 MG/DL (70-105); TOTAL PROTEIN 6.7 GM/DL (6.4-8.2)
[2021-07-28 10:43] LABS: CARBON DIOXIDE 22 MMOL/L (21-32)
[2021-07-28 10:43] LABS: BACTERIA,URINE NEGATIVE /HPF; RBC,URINE 0-2 /HPF
[2021-07-28 10:44] LABS: YEAST,URINE MODERATE /HPF
[2021-07-28 10:44] LABS: BILIRUBIN,TOTAL 0.5 MG/DL (0.1-1.0)
[2021-07-28 10:45] LABS: ALKALINE PHOSPHATASE 59 U/L (40-136)
[2021-07-28] MEDS ORDERED: LORazepam INJ 2 MG/ML (ATIVAN) VIAL IVP ONE (10:45)
[2021-07-28 10:46] LABS: CREATININE SERUM 1.73 MG/DL (0.60-1.30); FIBRIN DEGRADATION PRODUCTS 1.12 UG/ML (0.00-0.49); GFR ESTIMATED 29; PROTHROMBIN TIME PATIENT 13.3 SEC (12.2-14.7)
[2021-07-28 10:47] LABS: BUN/CREATININE RATIO 19
[2021-07-28 10:48] LABS: ALANINE AMINOTRANSFERASE 37 U/L (0-55)
[2021-07-28 10:56] LABS: VALPROIC ACID 105.8 UG/ML (50.0-100.0)
[2021-07-28] MEDS ORDERED: NS 250 ML (IVPB) BAG IV ONE (11:45)
[2021-07-28] MEDS ORDERED: IOHEXOL 350 MG/ML 150 ML (OMNIPAQUE 350) VIAL IV ONE (11:45)
[2021-07-28] MEDS ORDERED: HOLD METFORMIN - RECEIVED CONTRAST 20 ML VIAL IV SCH (11:45)
[2021-07-28] MEDS ORDERED: NS IV 1000 ML 1,000 ML IV SCH ×3 (12:00→23:29)
--- NOTE | 2021-07-28 12:16 | Diagnostic Imaging Report ---
INDICATION: Stroke, altered mental status. TECHNIQUE: The CT perfusion study was performed with axial slices and IV contrast bolus as well as generation of perfusion maps via Rapid protocol. Dose reduction protocol was used. FINDINGS: There is no evidence of core infarct. The study is limited by motion artifact. There are scattered areas of T-Max prolongation which do not follow a vascular distribution and are probably due to motion artifact. IMPRESSION: Limited study due to motion artifact. No definite core infarct. Multiple areas of T-Max prolongation are present which are likely artifactual and do not follow a vascular distribution. Dictated by: Dictated on workstation # [id number]
--- NOTE | 2021-07-28 12:30 | Diagnostic Imaging Report ---
INDICATION: Stroke alert, altered mental status. TECHNIQUE: Contiguous noncontrast images were obtained from the skull base through the vertex. After intravenous contrast administration, helical CT angiography of the neck was performed. Source data was reformatted into 3D MIP projections. Delayed post contrast acquisition was also obtained. Auto Exposure Controls were utilized during the CT exam to meet ALARA standards for radiation dose reduction. COMPARISON: There is no prior CTA for comparison. CTA NECK FINDINGS: Portions of the study are limited by motion artifact. The aortic arch and great vessel origins are patent with mild plaquing, without stenosis. The common carotid arteries are patent and without stenosis. There is plaquing in the internal carotid origins on both sides, fairly mild on the right side and ilcvasvl-jc-[id number] on the left side. The degree of stenosis of the right internal carotid origin was less than 50%. The degree of stenosis of the left internal carotid origin was approximately 70%. Both vertebrals are patent and appear codominant. CTA HEAD FINDINGS: The distal internal carotid arteries, anterior cerebral arteries, and middle cerebral arteries and their visualized branches appear patent. There is no major vessel stenosis or occlusion or aneurysmal disease. Distal vertebral arteries and basilar artery and posterior cerebral arteries are patent. The dural venous sinuses are patent. IMPRESSION: 1. CTA neck demonstrates some plaquing in the carotid bifurcations on both sides, with about 70% stenosis of the left internal carotid origin and less than 50% stenosis of the right internal carotid origin. Both vertebrals are patent. 2. CTA head demonstrates no major vessel stenosis or occlusion or aneurysmal disease. Dictated by: Dictated on workstation # [id number]
--- NOTE | 2021-07-28 14:43 | ED Neurological Problem ---
General Chief Complaint: Neuro-Stroke Like Symptoms Stated Complaint: STROKE Nursing Triage Note: PT BROUGHT IN BY [facility] FROM [facility] FOR POSSIBLE STROKE LIKE SYMPTOMS. PTS LAST KNOWN WELLTIME PER STAFF WAS 8AM. PT IS ALERT, BUT DOES NOT FOLLOW COMMANDS. UNABLE TO PERFORM NIH. Source: EMS, half-way records Exam Limitations: no limitations History of Present Illness Date Seen by Provider: Jul 28, 2021 Time Seen by Provider: 09:41 Initial Comments This is 75-year-old woman presents to the emergency room via EMS from the [facility] in [place]. Staff noted this morning at around 0600 that she was at her baseline mental status. At 0800 she was found to have garbled speech and decreased responsiveness. They also thought perhaps she had some facial drooping. They were concerned about stroke or a medication effect. This patient was recently admitted to [facility] for behavioral problems. I interviewed her [id number] by phone who stated patient was [facility] because she was refusing to follow instructions or cooperate with care. Patient's had reported difficulty understanding her speech for the past few months. Nursing staff at the half-way reported her Depakote level was recently 89. They also reported some recent medication changes and believed BuSpar had been increased recently. Patient has not had any fever, vomiting, cough, or other symptoms of acute infectious illness. Stroke activation was paged and patient was taken directly to CT on arrival. residential noted systolic blood pressure was low this morning at 89. Systolic blood pressure was 144 for EMS. Blood sugars have been in the 130s. Allergies and Home Medications Allergies Coded Allergies: morphine (Verified Allergy, Mild, 07/12/14) Sulfa (Sulfonamide Antibiotics) (Verified Allergy, Unknown, 03/15/06) Patient Home Medication List Home Medication List Reviewed: Yes Cefdinir (Cefdinir) 300 Mg Capsule, 300 MG PO BID Prescribed by: DIONY KRUSE on 09/18/202053 Clopidogrel Bisulfate (Clopidogrel) 75 Mg Tablet, 75 MG PO DAILY, (Reported) Entered as Reported by: ELY HAN on 09/13/20 0311 Furosemide (Furosemide) 40 Mg Tablet, 40 MG PO DAILY PRN for FLUID RETENTION, (Reported) Entered as Reported by: JANEEN PARKER on 09/15/20 1046 Hydrocodone Bit/Acetaminophen (HYDROcodone/APAP 5 MG/325 MG TAB) 1 Tab Tab, 1 TAB PO Q6H PRN for PAIN-MODERATE (5-7) Prescribed by: DIONY KRUSE on 09/18/202053 Insulin Aspart (Novolog) 100 Unit/1 Ml Susp, 0 UNIT SC ACHS Prescribed by: DIONY KRUSE on 09/18/202053 Insulin Determir (Levemir) 1,000 Units/10 Ml Soln, 15 UNIT SQ HS Prescribed by: DIONY KRUSE on 09/18/202053 Magnesium Oxide (Magnesium) 400 Mg Tablet, 400 MG PO HS, (Reported) Entered as Reported by: JANEEN PARKER on 09/15/201045 Meloxicam (Meloxicam) 7.5 Mg Tablet, 15 MG PO DAILY Prescribed by: DIONY KRUSE on 09/18/202053 Metformin HCl (Metformin HCl ER) 500 Mg Tab.er.24h, 1,000 MG PO BID, (Reported) Entered as Reported by: JANEEN PARKER on 09/15/20 104 Vits #93/Iron Fum/FA ( Formula Tablet) 1 Each Tablet, 1 EACH PO DAILY, (Reported) Entered as Reported by: JANEEN PARKER on 09/15/20 104 Review of Systems Review of Systems Constitutional: see HPI Eyes: No Symptoms Reported Ears, Nose, Mouth, Throat: no symptoms reported Respiratory: no symptoms reported Cardiovascular: see HPI Gastrointestinal: no symptoms reported Genitourinary: no symptoms reported : No Musculoskeletal: no symptoms reported Skin: no symptoms reported Psychiatric/Neurological: See HPI Endocrine: No Symptoms Reported Hematologic/Lymphatic: No Symptoms Reported Past Ssgqrcb-Fkpuae-Rdaaiy Hx Patient Social History Tobacco Use?: No Use of E-Cig and/or Vaping dev: Unable to obtain Substance use?: Unable to obtain Alcohol Use?: Unable to obtain Pt feels they are or have been: No Immunizations Up To Date Tetanus Booster (TDap): More than 5yrs PED Vaccines UTD: No Seasonal Allergies Seasonal Allergies: No Past Medical History Surgeries: Yes (left knee, RENAL STENTS PLACEMENT, ESWL) Coronary Stent, Orthopedic Respiratory: No Cardiac: Yes Coronary Artery Disease, Heart Attack, High Cholesterol, Hypertension Neurological: No Reproductive Disorders: No Sexually Transmitted Disease: No Genitourinary: Yes Bladder Infection, Kidney Stones Gastrointestinal: No Musculoskeletal: Yes Arthritis Endocrine: Yes Diabetes, Non-Insulin dep HEENT: No Cancer: No Psychosocial: No Integumentary: No Blood Disorders: No Adverse Reaction/Blood Tranf: No Family Medical History Cardiovascular disease 19 FATHER (AND LUNG CANCER) Physical Exam Vital Signs Vital Signs - First Documented 07/28/21 09:40 Temp 36.6 Pulse 112 Resp 10 B/P (MAP) 157/89 (111) Pulse Ox 97 O2 Delivery Room Air Capillary Refill : Less Than 3 Seconds Height, Weight, BMI Height: 5'2.00" Weight: 215lbs. oz. 97.842566ho; 32.00 BMI Method:Stated General Appearance: WD/WN, other (Minimally responsive. Does sometimes respond and garbled speech. Does not follow commands) HEENT: PERRL/EOMI, normal ENT inspection, other (Oropharynx somewhat dry) Neck: normal inspection Respiratory: lungs clear, normal breath sounds, no respiratory distress, no accessory muscle use Cardiovascular: regular rate, rhythm, no edema, no murmur Gastrointestinal: non tender, soft; No distended Extremities: normal inspection, no pedal edema Neurologic/Psychiatric: other (Patient moves all 4 extremities with equal strength. No facial droop noted. Patient sometimes responds with garbled s peech and will state some complete phrases such as "I need to go to the bathroom". Patient will not follow any commands to perform a meaningful NIH.) Motor/Sensory: no motor deficit Skin: normal color, warm/dry Progress/Results/Core Measures Results/Orders Lab Results Laboratory Tests Test 07/28/21 09:59 07/28/21 10:00 07/28/21 10:20 Range/Units Glucometer 138 H 70-110 MG/DL White Blood Count 11.3 H 4.3-11.0 10^3/uL Red Blood Count 4.71 3.80-5.11 10^6/uL Hemoglobin 13.0 11.5-16.0 g/dL Hematocrit 41 35-52 % Mean Corpuscular Volume 87 80-99 fL Mean Corpuscular Hemoglobin 28 25-34 pg Mean Corpuscular Hemoglobin Concent 32 32-36 g/dL Red Cell Distribution Width 15.9 H 10.0-14.5 % Platelet Count 164 130-400 10^3/uL Mean Platelet Volume 11.8 9.0-12.2 fL Immature Granulocyte % (Auto) 1 % Neutrophils (%) (Auto) 65 42-75 % Lymphocytes (%) (Auto) 17 12-44 % Monocytes (%) (Auto) 15 H 0-12 % Eosinophils (%) (Auto) 2 0-10 % Basophils (%) (Auto) 1 0-10 % Neutrophils # (Auto) 7.3 1.8-7.8 10^3/uL Lymphocytes # (Auto) 2.0 1.0-4.0 10^3/uL Monocytes # (Auto) 1.7 H 0.0-1.0 10^3/uL Eosinophils # (Auto) 0.2 0.0-0.3 10^3/uL Basophils # (Auto) 0.1 0.0-0.1 10^3/uL Immature Granulocyte # (Auto) 0.1 0.0-0.1 10^3/uL Prothrombin Time 13.3 12.2-14.7 SEC INR Comment 1.0 0.8-1.4 Activated Partial Thromboplast Time 26 24-35 SEC D-Dimer 1.12 H 0.00-0.49 UG/ML Sodium Level 140 135-145 MMOL/L Potassium Level 4.5 3.6-5.0 MMOL/L Chloride Level 98 98-107 MMOL/L Carbon Dioxide Level 22 21-32 MMOL/L Anion Gap 20 H 5-14 MMOL/L Blood Urea Nitrogen 33 H 7-18 MG/DL Creatinine 1.73 H 0.60-1.30 MG/DL Estimat Glomerular Filtration Rate 29 BUN/Creatinine Ratio 19 Glucose Level 153 H 70-105 MG/DL Calcium Level 9.4 8.5-10.1 MG/DL Corrected Calcium 9.5 8.5-10.1 MG/DL Total Bilirubin 0.5 0.1-1.0 MG/DL Aspartate Amino Transf (AST/SGOT) 45 H 5-34 U/L Alanine Aminotransferase (ALT/SGPT) 37 0-55 U/L Alkaline Phosphatase 59 40-136 U/L Troponin I < 0.028 <0.028 NG/ML Total Protein 6.7 6.4-8.2 GM/DL Albumin 3.9 3.2-4.5 GM/DL Valproic Acid (Depakene) Level 105.8 *H 50.0-100.0 UG/ML Urine Color YELLOW Urine Clarity CLEAR Urine pH 6.0 5-9 Urine Specific Richards 1.020 1.016-1.022 Urine Protein NEGATIVE NEGATIVE Urine Glucose (UA) NEGATIVE NEGATIVE Urine Ketones 1+ H NEGATIVE Urine Nitrite NEGATIVE NEGATIVE Urine Bilirubin NEGATIVE NEGATIVE Urine Urobilinogen 0.2 < = 1.0 MG/DL Urine Leukocyte Esterase 2+ H NEGATIVE Urine RBC (Auto) TRACE-I H NEGATIVE Urine RBC 0-2 /HPF Urine WBC 10-25 H /HPF Urine Squamous Epithelial Cells NONE /HPF Urine Crystals NONE /LPF Urine Bacteria NEGATIVE /HPF Urine Casts NONE /LPF Urine Mucus NEGATIVE /LPF Urine Yeast MODERATE H /HPF Urine Culture Indicated YES My Orders Orders - MARILYN GASPAR MD Cbc With Automated Diff (07/28/21:42) Protime With Inr (07/28/21:42) Partial Thromboplastin Time (07/28/21 09:42) Comprehensive Metabolic Panel (07/28/21:42) Fibrin Degradation Products (07/28/21:42) Troponin I [place] (07/28/21 09:42) Ua Culture If Indicated (07/28/21 09:42) Chest 1 View, Ap/Pa Only (07/28/21:42) Catheter(Urinary) Insert & Ass 03,15 (07/28/21 09:42) Ekg Tracing (07/28/21 09:42) Nothing By Mouth (07/28/21 Lunch) Accucheck Stat ONCE (07/28/21:42) Ed Iv/Invasive Line Start (07/28/21:42) Ed Iv/Invasive Line Start (07/28/21 09:42) Vital Signs Stroke Patient Q15M (07/28/21 09:42) Ct Head Wo-R/O Stroke (07/28/21 09:42) O2 (07/28/21:42) Intake & Output 06,14,22 (07/28/21 09:42) Monitor-Rhythm Ecg Trace Only (07/28/21 09:42) Dysphagia Screening Tool (07/28/21 09:42) Post Thrombolytic Adminstratio (07/28/21 09:42) Lipid Panel (07/29/21 06:00) Ct Angio Head/Neck (07/28/21 09:45) Ct Head Perfusion W/ Contrast (07/28/21 09:45) Valproic Acid (07/28/21 09:47) Lorazepam Injection (Ativan Injection) (07/28/21 10:17) Lorazepam Injection (Ativan Injection) (07/28/21 10:45) Urine Culture (07/28/21 10:20) Iohexol Injection (Omnipaque 350 Mg/Ml 1 (07/28/21 11:45) Received Contrast (Hold Metformin- Contr (07/28/21 11:45) Ns (Ivpb) (Sodium Chloride 0.9%) (07/28/21 11:45) Ns Iv 1000 Ml (Sodium Chloride 0.9%) (07/28/21 12:00) Arterial Blood Gas (07/28/21 14:35) Medications Given in ED Current Medications Medications Dose Ordered Sig/Sahra Route Start Time Stop Time Status Last Admin Dose Admin Iohexol 150 ml ONCE ONCE IV 07/28/21 11:45 07/28/21 11:46 DC 07/28/21 11:47 120 ML Lorazepam 0.5 mg ONCE ONCE IVP 07/28/21 10:45 07/28/21 10:46 DC 07/28/21 10:20 0.5 MG Sodium Chloride 250 ml ONCE ONCE IV 07/28/21 11:45 07/28/21 11:46 DC 07/28/21 11:48 150 ML Vital Signs/I&O 07/28/21 09:40 Temp 36.6 Pulse 112 Resp 10 B/P (MAP) 157/89 (111) Pulse Ox 97 O2 Delivery Room Air Blood Pressure Mean: 111 FSBG Bedside Testing Finger Stick Blood Glucose: 138 Blood Glucose Action Taken: RN AND PHYSICIAN NOTIFIED Progress Progress Note : Time: 14:40 Progress Note Stroke activation was paged and patient was taken promptly from EMS to the CT scanner. Initial CT was unremarkable. Patient would not follow any commands and therefore meaningful NIH could not be obtained this was eventually followed by CT angiogram of the head and neck. Due to patient's increased creatinine, she was hydrated with IV fluids to help with renal protection. Case was discussed with Dr. Henderson, stroke neurologist at [facility]. He agrees with this provider that this sounds more like encephalopathic and/or psychiatric in nature rather than a stroke. I discussed this with the patient's DPOA, her vgqbak-ry-bow. Collectively we decided against using thrombolytic therapy. Patient's mental status did not improve much. Possible causes include an eleva vishnu valproic acid level, candidal UTI, renal insufficiency, and/or exacerbation of psychiatric conditions and/or dementia. As one last measure of evaluation I am obtaining an ABG. Case has been reviewed with Dr. Oreilly who agrees with admission. Patient has a DO NOT RESUSCITATE status on her half-way paperwork and that will be honored. Initial ECG Impression Date: Jul 28, 2021 Initial ECG Impression Time: 10:34 Initial ECG Rate: 104 Initial ECG Rhythm: S.Tach Comment Sinus tachycardia with no ST elevation or depression. Right bundle branch block. PVC noted. No axis deviation. Diagnostic Imaging Diagonstic Imaging: Xray Plain Films/CT/US/NM/MRI: chest Comments NAME: CARLITO DELCID I MED REC#: [id number] PT STATUS: REG ER : 1945 PHYSICIAN: MARILYN GASPAR MD ADMIT DATE: 07/28/21/ER Signed Date of Exam:07/28/21 CHEST 1 VIEW, AP/PA ONLY INDICATION: Possible stroke, slurred speech, neurological deficit. TECHNIQUE: Single view chest 9:41 AM. CORRELATION STUDY: 07/15/2014 FINDINGS: Limited depth of inspiration. Atelectasis at the right lung base. No infiltrate. Heart size borderline enlarged. Mediastinum prominent without evidence of overt failure. Right-sided central line has been removed. IMPRESSION: 1. Hypoventilation with right basilar atelectasis and/or scarring. Negative for acute cardiopulmonary abnormality. Dictated by: Dictated on workstation # [id number] Dict: 07/28/21 0956 Trans: 07/28/21 1133 [id number] Interpreted by: MATHEUS SON DO Electronically signed by: MATHEUS SON DO 07/28/21 1133 Reviewed: Reviewed by Me Diagonstic Imaging: CT Plain Films/CT/US/NM/MRI: head Comments CT head viewed by me and report reviewed. See report below: NAME: CARLITO DELCID I MED REC#: [id number] PT STATUS: REG ER : 1945 PHYSICIAN: MARILYN GASPAR MD ADMIT DATE: 07/28/21/ER Signed Date of Exam:07/28/21 CT HEAD WO-R/O STROKE PROCEDURE: CT head wo r/o stroke. TECHNIQUE: Multiple contiguous axial images were obtained through the brain without the use of intravenous contrast. Auto Exposure Controls were utilized during the CT exam to meet ALARA standards for radiation dose reduction. INDICATION: 75-year-old female, possible stroke with neurological deficit, slurred speech. CORRELATION: 06/24/2021 FINDINGS: There are diffuse atrophic changes with prominence of the ventricles and sulci. There are scattered areas of decreased attenuation, nonspecific but likely changes of chronic small vessel ischemic disease. More focal small regional area low-attenuation right posterior periventricular region appears unchanged. There is otherwise normal rojas-white differentiation. No abnormal areas of attenuation to suggest edema from ischemia. No hyperdense intracranial vascular sign. There is no midline shift or mass effect. No evidence for acute intracranial hemorrhage or abnormal extra-axial fluid collection. Prior bilateral lens replacement. Bony calvarium is intact. Paranasal sinuses are clear. Mastoid air cells also appear clear. IMPRESSION: 1. No CT evidence for acute intracranial abnormality. 2. Age-related atrophic changes with changes of small vessel ischemic disease. Telephone call has been made to the [facility] emergency department, 9:58 AM. Dictated by: Dictated on workstation # [id number] Dict: 07/28/2157 Trans: 07/28/21 1133 DO [id number] Interpreted by: MATHEUS SON DO Electronically signed by: MATHEUS SON DO 07/28/21 1133 Departure Communication (Admissions) Time/Spoke to Admitting Phy: 13:10 Dr. Oreilly Impression Primary Impression: Altered mental status Qualified Codes: R41.82 - Altered mental status, unspecified Additional Impressions: Acute renal insufficiency Supratherapeutic valproic acid Disposition: ADMITTED INPATIENT Condition: Stable Admissions Decision to Admit Reason: Admit from ER (General) Decision to Admit/Date: Jul 28, 2021 Time/Decision to Admit Time: 10:00 Departure-Patient Inst. Referrals: NO,LOCAL PHYSICIAN (PCP/Family) Primary Care Physician MARILYN GASPAR MD Jul 28, 2021 14:43
[2021-07-28 14:55] LABS: ABG BASE EXCESS -1.1 MMOL/L (-2.5-2.5); ABG OXYGEN SATURATION 92 % (94-100); ABG PCO2 31 MMHG (35-45); ABG PH 7.46 (7.37-7.43); ABG PO2 61 MMHG (79-93); ABG TCO2 23.1 MMOL/L (21.0-31.0); ALLENS TEST YES-POS; VENTILATOR NO
[2021-07-28 17:37] VITALS: BP 117/67
[2021-07-28] MEDS ORDERED: FLUCONAZOLE 200 MG/100 ML 100 ML IV NR (18:30)
[2021-07-28] MEDS ORDERED: ONDANSETRON 4 MG/2 ML (SDV) Z0FRAN IV PRN (18:45)
[2021-07-28] MEDS ORDERED: RT-ALBUTEROL SULF 2.5 MG/3 ML PRE-MIX VIAL ONE (23:26)
[2021-07-29] MEDS: LACTATED RINGERS 1,000 ML IV SCH ×4 (00:11→18:04)
[2021-07-29 08:36] LABS: TRIGLYCERIDES 174 MG/DL (<150); VLDL CHOLESTEROL 35 MG/DL (5-40)
[2021-07-29 08:41] LABS: CHOLESTEROL 193 MG/DL (< 200); HDL CHOLESTEROL 30 MG/DL (40-60)
[2021-07-29] MEDS ORDERED: METF-399 PO (11:08)
[2021-07-29] MEDS ORDERED: MENT118G TP (11:08)
[2021-07-29] MEDS ORDERED: DIVA125C10 PO (11:08)
[2021-07-29] MEDS ORDERED: LACT10SO3 PO (11:08)
[2021-07-29] MEDS ORDERED: BUSP10TA95 PO (11:08)
[2021-07-29] MEDS ORDERED: MELO15TA39 PO (11:08)
[2021-07-29] MEDS ORDERED: OLN5T PO (11:08)
--- NOTE | 2021-07-29 17:31 | History & Physical ---
HPI History of Present Illness: 75 yo F that presented with altered mental status. Patient is from a facility and they noticed that she was altered and speaking garbled speech and not making much sense. They stated that she recently had some medication changes. Depakot levels were elevated. Last known well time was around 0600 and they noted changes around 0800. She was transferred here do to concerns for possible stroke. Patient also recently had admission to inpatient behavioral health. Source: patient Exam Limitations: clinical condition Date seen by provider: Jul 29, 2021 Time Seen by Provider: 09:00 Attending Physician Alina Oreilly MD PCP No,Local Physician Consult Date of Admission Jul 28, 2021 at 14:43 Home Medications Home Medications Reviewed patient Home Medication Reconciliation performed by pharmacy medication reconciliations explosive ordnance disposal technician and/or nursing. Patients Allergies have been reviewed. Allergies Coded Allergies: morphine (Verified Allergy, Mild, 07/12/14) Sulfa (Sulfonamide Antibiotics) (Verified Allergy, Unknown, 03/15/06) [id number] Hx Patient Social History Living Status: Living LTC Recent Hopitalizations: Yes (UTI'S AND MAYBE PNEUMONIA) Alcohol Use?: Unable to obtain Have you traveled recently?: Unable to obtain Immunizations Up To Date Tetanus Booster (TDap): More than 5yrs Influenza Vaccine Up-to-Date: No; Not Current Past Medical History NIDDM Mood disorder Family Medical History Family History: Cardiovascular disease 19 FATHER (AND LUNG CANCER) Review of Systems ([facility]) Constitutional: other (Patient unable to answer questions due to altered mental status) Reviewed Test Results Reviewed Test Results Lab Laboratory Tests Test 07/28/21 09:59 07/28/21 10:00 07/28/21 10:20 07/28/21 14:50 Range/Units Glucometer 138 H 70-110 MG/DL White Blood Count 11.3 H 4.3-11.0 10^3/uL Red Blood Count 4.71 3.80-5.11 10^6/uL Hemoglobin 13.0 11.5-16.0 g/dL Hematocrit 41 35-52 % Mean Corpuscular Volume 87 80-99 fL Mean Corpuscular Hemoglobin 28 25-34 pg Mean Corpuscular Hemoglobin Concent 32 32-36 g/dL Red Cell Distribution Width 15.9 H 10.0-14.5 % Platelet Count 164 130-400 10^3/uL Mean Platelet Volume 11.8 9.0-12.2 fL Immature Granulocyte % (Auto) 1 % Neutrophils (%) (Auto) 65 42-75 % Lymphocytes (%) (Auto) 17 12-44 % Monocytes (%) (Auto) 15 H 0-12 % Eosinophils (%) (Auto) 2 0-10 % Basophils (%) (Auto) 1 0-10 % Neutrophils # (Auto) 7.3 1.8-7.8 10^3/uL Lymphocytes # (Auto) 2.0 1.0-4.0 10^3/uL Monocytes # (Auto) 1.7 H 0.0-1.0 10^3/uL Eosinophils # (Auto) 0.2 0.0-0.3 10^3/uL Basophils # (Auto) 0.1 0.0-0.1 10^3/uL Immature Granulocyte # (Auto) 0.1 0.0-0.1 10^3/uL Prothrombin Time 13.3 12.2-14.7 SEC INR Comment 1.0 0.8-1.4 Activated Partial Thromboplast Time 26 24-35 SEC D-Dimer 1.12 H 0.00-0.49 UG/ML Sodium Level 140 135-145 MMOL/L Potassium Level 4.5 3.6-5.0 MMOL/L Chloride Level 98 98-107 MMOL/L Carbon Dioxide Level 22 21-32 MMOL/L Anion Gap 20 H 5-14 MMOL/L Blood Urea Nitrogen 33 H 7-18 MG/DL Creatinine 1.73 H 0.60-1.30 MG/DL Estimat Glomerular Filtration Rate 29 BUN/Creatinine Ratio 19 Glucose Level 153 H 70-105 MG/DL Calcium Level 9.4 8.5-10.1 MG/DL Corrected Calcium 9.5 8.5-10.1 MG/DL Total Bilirubin 0.5 0.1-1.0 MG/DL Aspartate Amino Transf (AST/SGOT) 45 H 5-34 U/L Alanine Aminotransferase (ALT/SGPT) 37 0-55 U/L Alkaline Phosphatase 59 40-136 U/L Troponin I < 0.028 <0.028 NG/ML Total Protein 6.7 6.4-8.2 GM/DL Albumin 3.9 3.2-4.5 GM/DL Valproic Acid (Depakene) Level 105.8 *H 50.0-100.0 UG/ML Urine Color YELLOW Urine Clarity CLEAR Urine pH 6.0 5-9 Urine Specific [place] 1.020 1.016-1.022 Urine Protein NEGATIVE NEGATIVE Urine Glucose (UA) NEGATIVE NEGATIVE Urine Ketones 1+ H NEGATIVE Urine Nitrite NEGATIVE NEGATIVE Urine Bilirubin NEGATIVE NEGATIVE Urine Urobilinogen 0.2 < = 1.0 MG/DL Urine Leukocyte Esterase 2+ H NEGATIVE Urine RBC (Auto) TRACE-I H NEGATIVE Urine RBC 0-2 /HPF Urine WBC 10-25 H /HPF Urine Squamous Epithelial Cells NONE /HPF Urine Crystals NONE /LPF Urine Bacteria NEGATIVE /HPF Urine Casts NONE /LPF Urine Mucus NEGATIVE /LPF Urine Yeast MODERATE H /HPF Urine Culture Indicated YES Blood Gas Puncture Site L RAD Blood Gas Patient Temperature 37.0 Arterial Blood pH 7.46 H 7.37-7.43 Arterial Blood Partial Pressure CO2 31 L 35-45 MMHG Arterial Blood Partial Pressure O2 61 L 79-93 MMHG Arterial Blood HCO3 22 L 23-27 MMOL/L Arterial Blood Total CO2 23.1 21.0-31.0 MMOL/L Arterial Blood Oxygen Saturation 92 L 94-100 % Arterial Blood Base Excess -1.1 -2.5-2.5 MMOL/L Chidi Test YES-POS Blood Gas Ventilator Setting NO Blood Gas Inspired Oxygen UNK Test 07/29/21 07:57 Range/Units Triglycerides Level 174 H <150 MG/DL Cholesterol Level 193 < 200 MG/DL LDL Cholesterol Direct 134 H 1-129 MG/DL VLDL Cholesterol 35 5-40 MG/DL HDL Cholesterol 30 L 40-60 MG/DL Physical Exam-([facility]) Physical Exam Vital Signs VS - Last 72 Hours, by Label 07/28/21 07/28/21 07/28/21 07/28/21 09:40 17:37 18:12 18:24 Temp 36.6 36.0 Pulse 112 86 101 Resp 10 17 24 B/P (MAP) 157/89 (111) 117/67 121/61 Pulse Ox 97 95 92 O2 Delivery Room Air Room Air Room Air Room Air 07/28/21 07/28/21 07/28/21 07/28/21 19:00 20:00 20:27 22:00 Temp 36.5 36.0 Pulse 100 98 93 Resp 19 13 B/P (MAP) 109/49 112/82 Pulse Ox 93 93 93 O2 Delivery Room Air Room Air Room Air 07/28/21 07/29/21 07/29/21 07/29/21 23:14 00:00 01:00 04:00 Temp 36.0 37.2 Pulse 93 101 93 Resp 13 21 B/P (MAP) 112/82 106/56 Pulse Ox 93 93 95 O2 Delivery Room Air Room Air Room Air 07/29/21 07/29/21 07/29/21 07/29/21 04:00 07:00 08:20 08:25 Temp 37.0 Pulse 87 90 Resp 18 B/P (MAP) 113/60 Pulse Ox 95 93 93 O2 Delivery Room Air Room Air Room Air 07/29/21 07/29/21 07/29/21 07/29/21 12:00 12:00 12:19 15:52 Temp 36.4 36.6 Pulse 87 94 92 Resp 21 18 B/P (MAP) 121/69 102/74 Pulse Ox 93 92 O2 Delivery Room Air Room Air Room Air 07/29/21 16:04 Pulse Ox 93 O2 Delivery Room Air Capillary Refill : Less Than 3 Seconds General Appearance: WD/WN, mild distress HEENT: PERRL/EOMI Neck: non-tender, full range of motion Respiratory: chest non-tender, lungs clear, normal breath sounds, no respiratory distress, no accessory muscle use Cardiovascular: normal peripheral pulses, regular rate, rhythm, no edema, no murmur Gastrointestinal: normal bowel sounds, non tender, soft Extremities: normal range of motion, no pedal edema, no calf tenderness Neurologic/Psychiatric: disoriented x 3, other (moving all extremities) Skin: normal color, warm/dry Lymphatic: no adenopathy Assessment/Plan Assessment/Plan Admission Status: Inpatient Order (span 2 midnights) Reason for Inpatient Admission: Requiring close f.u and work up for altered mental status (1) Altered mental status Status: Acute Assessment & Plan: - CTA with mild to moderate carotid stenosis which is not likely cause of current altered status. MRI brain ordered to rule out stroke, elevated valproic acid level, will repeat level in the AM, 1:1 sitter due to disorientation Qualifiers: Qualified Codes: R41.82 - Altered mental status, unspecified (2) Urinary tract infection Status: Acute Assessment & Plan: - Yeast in Urine, continue antifungal Qualifiers: Qualified Codes: N30.01 - Acute cystitis with hematuria (3) Valproic acid toxicity Status: Acute Assessment & Plan: - Repeat level in AM Qualifiers: Qualified Codes: T42.6X1A - Poisoning by other antiepileptic and sedative- hypnotic drugs, accidental (unintentional), initial encounter (4) Acute kidney failure Status: Acute Assessment & Plan: - Will continue to monitor, patient received IV contrast for scans in ER (5) Non-insulin dependent diabetes mellitus Status: Chronic Assessment & Plan: - Holding metformin due to contrast given and acute renal failure (6) DVT prophylaxis Status: Acute Assessment & Plan: ALINA Spence MD Jul 29, 2021 17:31
[2021-07-29] MEDS: FLUCONAZOLE 100 MG/50 ML IVPB IV SCH (18:06)
[2021-07-30] MEDS: LACTATED RINGERS 1,000 ML IV SCH ×2 (05:41→16:15)
[2021-07-30 07:48] LABS: NEUTROPHILS % (AUTO) 53 % (42-75)
[2021-07-30 07:50] LABS: BASOPHILS % (AUTO) 1 % (0-10); EOSINOPHILS # (AUTO) 0.2 10^3/uL (0.0-0.3); EOSINOPHILS % (AUTO) 2 % (0-10); HEMATOCRIT 33 % (35-52); HEMOGLOBIN 10.4 g/dL (11.5-16.0); LYMPHOCYTES # (AUTO) 2.1 10^3/uL (1.0-4.0); LYMPHOCYTES % (AUTO) 27 % (12-44); MEAN CORPUSCULAR HEMOGLOBIN 27 pg (25-34); MEAN CORPUSCULAR HGB CONC 32 g/dL (32-36); MEAN CORPUSCULAR VOLUME 86 fL (80-99); MEAN PLATELET VOLUME 12.5 fL (9.0-12.2); MONOCYTES # (AUTO) 1.3 10^3/uL (0.0-1.0); MONOCYTES % (AUTO) 17 % (0-12); NEUTROPHILS # (AUTO) 4.3 10^3/uL (1.8-7.8); PLATELET COUNT 110 10^3/uL (130-400)
[2021-07-30 08:04] LABS: BILIRUBIN,TOTAL 0.6 MG/DL (0.1-1.0); CALCIUM 8.7 MG/DL (8.5-10.1); CREATININE SERUM 1.16 MG/DL (0.60-1.30); POTASSIUM 3.5 MMOL/L (3.6-5.0); VALPROIC ACID 25.9 UG/ML (50.0-100.0)
[2021-07-30] MEDS: CLOPIDOGREL 75 MG (PLAVIX) TABLET PO SCH (08:15)
--- NOTE | 2021-07-30 10:01 | Diagnostic Imaging Report ---
PROCEDURE: MR imaging of the brain without contrast. TECHNIQUE: Multiplanar, multisequence MR imaging of the brain was performed without contrast. INDICATION: Altered mental status. Study was compromised due to patient motion. Patient unable to tolerate the entire study. Only limited sequences could be obtained. Diffusion weighted images are without diffusion restriction. There are extensive periventricular white matter changes consistent with chronic microvascular ischemia. The normal expected flow-voids within the carotid siphons are seen. Ventricles and sulci are prominent consistent with age-related atrophy. No definite hemorrhage is detected IMPRESSION: Extensive changes of chronic microvascular ischemia. No acute intracranial process is detected. Dictated by: Dictated on workstation # [id number]
[2021-07-30] MEDS: FLUCONAZOLE 100 MG/50 ML IVPB IV SCH (17:43)
[2021-07-30] MEDS ORDERED: KCL 20 MEQ TAB (K-DUR) PO NR (18:00)
--- NOTE | 2021-07-30 18:03 | Progress Note ---
Subjective Subjective/Events-last exam Patient alert this AM. Answering questions appropriately. Tolerating PO diet. Review of Systems General: Malaise Pulmonary: No Dyspnea, No Cough Cardiovascular: No: Chest Pain, Palpitations, Edema Gastrointestinal: No: Nausea, Vomiting, Abdominal Pain, Diarrhea, Constipation Genitourinary: No Dysuria, No Frequency Neurological: Weakness, Confusion Objective Exam Last Set of Vital Signs Vital Signs Date Time Temp Pulse Resp B/P (MAP) Pulse Ox O2 Delivery O2 Flow Rate FiO2 07/30/21 15:43 36.5 79 20 129/74 93 Room Air Capillary Refill : Less Than 3 Seconds I&O Intake and Output 07/30/21 00:00 Intake Total 2325 ml Output Total 1800 ml Balance 525 ml Intake Oral 275 ml IV Total 2050 ml Output Urine Total 1800 ml General: Alert, No Acute Distress HEENT: Mucous Memb Moist/[place] Lungs: Clear to Auscultation, Normal Air Movement Heart: Regular Rate, No Murmurs Abdomen: Normal Bowel Sounds, Soft, No Tenderness, No Masses Extremities: No Edema, No Tenderness/Swelling Skin: No Rashes Neuro: Normal Speech, Sensation Intact, Cranial Nerves 3-12 NL Psych/Mental Status: Mental Status NL, Mood NL Results/Procedures Lab Laboratory Tests 07/30/21 06:14: White Blood Count 8.0, Red Blood Count 3.80, Hemoglobin 10.4L, Hematocrit 33L, Mean Corpuscular Volume 86, Mean Corpuscular Hemoglobin 27, Mean Corpuscular Hemoglobin Concent 32, Red Cell Distribution Width 16.1H, Platelet Count 110L, Mean Platelet Volume 12.5H, Immature Granulocyte % (Auto) 1, Neutrophils (%) (Auto) 53, Lymphocytes (%) (Auto) 27, Monocytes (%) (Auto) 17H, Eosinophils (%) (Auto) 2, Basophils (%) (Auto) 1, Neutrophils # (Auto) 4.3, Lymphocytes # (Auto) 2.1, Monocytes # (Auto) 1.3H, Eosinophils # (Auto) 0.2, Basophils # (Auto) 0.0, Immature Granulocyte # (Auto) 0.1, Percent Immature Platelet Fraction 5.4, Sodium Level 142, Potassium Level 3.5L, Chloride Level 105, Carbon Dioxide Level 22, Anion Gap 15H, Blood Urea Nitrogen 19H, Creatinine 1.16, Estimat Glomerular Filtration Rate 45, BUN/Creatinine Ratio 16, Glucose Level 112H, Calcium Level 8.7, Corrected Calcium 9.5, Total Bilirubin 0.6, Aspartate Amino Transf (AST/SGOT) 51H, Alanine Aminotransferase (ALT/SGPT) 38, Alkaline Phosphatase 46, Total Protein 5.0L, Albumin 3.0L, Valproic Acid (Depakene) Level 25.9L Microbiology 07/28/21 Urine Culture - Final, Complete YEAST Assessment/Plan Assessment/Plan (1) Altered mental status Status: Acute Assessment & Plan: - CTA with mild to moderate carotid stenosis which is not likely cause of current altered status. MRI brain ordered to rule out stroke, elevated valproic acid level, will repeat level in the AM, 1:1 sitter due to disorientation 07/30: patient much improved this AM. valproic acid level normal, plan to d.c back to [facility] in AM Qualifiers: Qualified Codes: R41.82 - Altered mental status, unspecified (2) Urinary tract infection Status: Acute Assessment & Plan: - Yeast in Urine, continue antifungal 07/30: Continue diflucan Qualifiers: Qualified Codes: N30.01 - Acute cystitis with hematuria (3) Valproic acid toxicity Status: Resolved Assessment & Plan: - Repeat level in AM Qualifiers: Qualified Codes: T42.6X1A - Poisoning by other antiepileptic and sedative- hypnotic drugs, accidental (unintentional), initial encounter (4) Acute kidney failure Status: Resolved Assessment & Plan: - Will continue to monitor, patient received IV contrast for scans in ER (5) Non-insulin dependent diabetes mellitus Status: Chronic Assessment & Plan: - Holding metformin due to contrast given and acute renal failure (6) DVT prophylaxis Status: Acute Assessment & Plan: ALINA Spence MD Jul 30, 2021 18:03
[2021-07-31] MEDS: LACTATED RINGERS 1,000 ML IV SCH (02:40)
[2021-07-31 06:19] LABS: BASOPHILS # (AUTO) 0.1 10^3/uL (0.0-0.1); BASOPHILS % (AUTO) 1 % (0-10); EOSINOPHILS # (AUTO) 0.3 10^3/uL (0.0-0.3); EOSINOPHILS % (AUTO) 3 % (0-10); HEMATOCRIT 35 % (35-52); LYMPHOCYTES # (AUTO) 1.7 10^3/uL (1.0-4.0); LYMPHOCYTES % (AUTO) 20 % (12-44); MEAN CORPUSCULAR HEMOGLOBIN 28 pg (25-34); MEAN CORPUSCULAR HGB CONC 32 g/dL (32-36); MEAN CORPUSCULAR VOLUME 88 fL (80-99); MEAN PLATELET VOLUME 11.9 fL (9.0-12.2); MONOCYTES # (AUTO) 1.3 10^3/uL (0.0-1.0); MONOCYTES % (AUTO) 15 % (0-12); NEUTROPHILS # (AUTO) 5.4 10^3/uL (1.8-7.8); NEUTROPHILS % (AUTO) 62 % (42-75); PLATELET COUNT 121 10^3/uL (130-400); WHITE BLOOD COUNT 8.7 10^3/uL (4.3-11.0)
[2021-07-31 06:29] LABS: POTASSIUM 4.2 MMOL/L (3.6-5.0)
[2021-07-31 06:30] LABS: CALCIUM 8.8 MG/DL (8.5-10.1)
[2021-07-31 06:35] LABS: CREATININE SERUM 1.11 MG/DL (0.60-1.30)
[2021-07-31] MEDS: CLOPIDOGREL 75 MG (PLAVIX) TABLET PO SCH (08:30)
--- NOTE | 2021-07-31 10:20 | Discharge Summary ---
Discharge Summary Reconcile Patient Problems Problems Reviewed?: Yes Hospital Course Hospital Course Date of Admission: Jul 28, 2021 at 14:43 Admission Diagnosis : Family Physician/Provider: No,Local Physician Date of Discharge: 07/31/21 Discharge Diagnosis: Encephalopathy Valproic Acid Toxicity Altered Mental status UTI Dementia Hospital Course: 75 yo F that presented with altered mental status with elevated valproic acid level. Patient was started on IVFs and NANCY improved and now within normal range. Valproic acid level now normal and patient is at her baseline. Will d.c patient back to [place]. Labs and Pending Lab Test: Laboratory Tests 07/31/21 05:33: White Blood Count 8.7, Red Blood Count 3.95, Hemoglobin 11.0L, Hematocrit 35, Mean Corpuscular Volume 88, Mean Corpuscular Hemoglobin 28, Mean Corpuscular Hemoglobin Concent 32, Red Cell Distribution Width 15.9H, Platelet Count 121L, Mean Platelet Volume 11.9, Immature Granulocyte % (Auto) 1, Neutrophils (%) (Auto) 62, Lymphocytes (%) (Auto) 20, Monocytes (%) (Auto) 15H, Eosinophils (%) (Auto) 3, Basophils (%) (Auto) 1, Neutrophils # (Auto) 5.4, Lymphocytes # (Auto) 1.7, Monocytes # (Auto) 1.3H, Eosinophils # (Auto) 0.3, Basophils # (Auto) 0.1, Immature Granulocyte # (Auto) 0.0, Sodium Level 142, Potassium Level 4.2, Chloride Level 105, Carbon Dioxide Level 24, Anion Gap 13, Blood Urea Nitrogen 17, Creatinine 1.11, Estimat Glomerular Filtration Rate 48, BUN/Creatinine Ratio 15, Glucose Level 93, Calcium Level 8.8 Microbiology 07/28/21 Urine Culture - Final, Complete YEAST Home Meds Active Reported Buspirone HCl 10 Mg Tablet 10 Mg PO 0600,1200,1800 Olanzapine 5 Mg Tablet 5 Mg PO BID Metformin HCl 1,000 Mg Tablet 1,000 Mg PO BID Meloxicam 15 Mg Tablet 15 Mg PO DAILY Lactulose 10 Gm/15 Ml Solution 10 Ml PO DAILY Biofreeze (Menthol) 118 Ml Gel..ml. 1 Applic TP DAILY APPLY TO BILATERAL KNEES Divalproex Sodium 125 Mg Cap.sprink 375 Mg PO QID TAKES 3 (125MG) CAPS Furosemide 40 Mg Tablet 40 Mg PO DAILY Clopidogrel (Clopidogrel Bisulfate) 75 Mg Tablet 75 Mg PO DAILY Skilled [facility] ([facility]) I certify that SNF services are required to be given on an inpatient basis because of the above named patient's need for long term care on a continuing basis for the conditions(s) for which he/she was receiving inpatient hospital services prior to his/her transfer to the SNF. [facility] Facility Order: Nursing Services, Physical Therapy-Evaluate & Treat Oxygen Delivery Method: Room Air Discharge Diet: No Restrictions Daily Activity as Tolerated: Yes Resuscitation Status: Do Not Resuscitate Alina Oreilly Jul 31, 2021 10:17 Discharge Physical Exam General: Alert, Other (Oriented x2) HEENT: Atraumatic, EOMI, Mucous Memb Moist/[place] Lungs: Clear to Auscultation, Normal Air Movement Heart: Regular Rate, No Murmurs Abdomen: Normal Bowel Sounds, Soft, No Tenderness, No Masses Extremities: No Edema, No Tenderness/Swelling Skin: No Rashes Neuro: Sensation Intact, Cranial Nerves 3-12 NL ALINA OREILLY MD Jul 31, 2021 10:20
== END 2021-07-31 12:00 | DRG 92 ==
LOC: EDUNIT# 09:40 → ER 09:41 → CSD 14:43 → 4TH 07-29 18:00
PROVIDERS: ADMIT Family Medicine; ATTEND Family Medicine
DX: G92.9 Unspecified toxic encephalopathy (principal); N39.0 Urinary tract infection, site not specified; N17.9 Acute kidney failure, unspecified; T42.6X5A Adverse effect of other antiepileptic and sedative-hypnotic drugs, initial encounter; E11.9 Type 2 diabetes mellitus without complications; Z79.899 Other long term (current) drug therapy; Z79.4 Long term (current) use of insulin; Z79.84 Long term (current) use of oral hypoglycemic drugs; Z95.5 Presence of coronary angioplasty implant and graft; I25.10 Atherosclerotic heart disease of native coronary artery without angina pectoris; I25.2 Old myocardial infarction; E78.00 Pure hypercholesterolemia, unspecified; I10 Essential (primary) hypertension; M19.90 Unspecified osteoarthritis, unspecified site; F03.90 Unspecified dementia, unspecified severity, without behavioral disturbance, psychotic disturbance, mood disturbance, and anxiety
CPT/HCPCS: 0042T; 36415; 51702; 70450; 70496; 70498; 70551; 71045; 80048; 80053; 80061; 80164; 81000; 82805; 82947; 84484; 85025; 85379; 85610; 85730; 87088; 93005; 93041

== ENCOUNTER 2021-12-24 05:42 | Outpatient (CLI) | payer MEDICARE ==
[~2021-12-24] VITALS: Ht 157.5 cm; Wt 64.4 kg
[~2021-12-24 05:42] MED LIST changes: +BUSP10TA95 PO; +DIVA125C10 PO; +LACT10SO3 PO; +MELO15TA39 PO; +MENT118G TP; +METF-399 PO; +OLN5T PO
[2021-12-28] MEDS ORDERED: VENL150C3 PO (12:13)
[2021-12-28] MEDS ORDERED: CLON1TAB13 PO (12:13)
[2021-12-28] MEDS ORDERED: MIRT-69 PO (12:13)
[2022-01-05] MEDS ORDERED: PANT40TA2 PO (10:45)
== END 2021-12-28 12:58 | disposition home or self-care (01) ==
LOC: PREOP 05:42
PROVIDERS: ATTEND Surgery
DX: Z01.818 Encounter for other preprocedural examination (principal)

== ENCOUNTER 2022-01-05 08:18 | Day surgery (SDC) | payer MEDICARE, MEDICAID ==
[~2022-01-05] VITALS: Ht 157.5 cm; Wt 64.4 kg
[~2022-01-05 08:18] MED LIST changes: +CLON1TAB13 PO; +MIRT-69 PO; +VENL150C3 PO
[2022-01-05] MEDS ORDERED: LACTATED RINGERS 1,000 ML IV STA (08:22)
[2022-01-05] MEDS ORDERED: HURRICAINE EXT TUBE (BENZOCAINE) XX PRN (08:30)
[2022-01-05 08:54] VITALS: BP 122/70
--- NOTE | 2022-01-05 09:48 | Progress Note-Pre Operative ---
Pre-Operative Progress Note H&P Reviewed The H&P was reviewed, patient examined and no changes noted. Date Seen by Provider: January 05, 2022 Time Seen by Provider: 09:48 Date H&P Reviewed: January 05, 2022 Time H&P Reviewed: 09:48 Pre-Operative Diagnosis: dysphagia SHANE YOUNG DO January 05, 2022 09:48
[2022-01-05] MEDS ORDERED: proPOfol 200 MG/20 ML (DIPRIVAN) VIAL IV ONE (10:24)
--- NOTE | 2022-01-05 10:44 | Progress Note-Post Operative ---
Post-Operative Progess Note Surgeon (s)/Engraving Press Operator (s) Surgeon SHANE YOUNG DO Engraving Press Operator: na Pre-Operative Diagnosis dysphagia Post-Operative Diagnosis gastritis Procedure & Operative Findings Date of Procedure 01/05/22 Procedure Performed/Findings egd c biopsies Anesthesia Type per contract administration specialist Estimated Blood Loss Estimated blood loss (mL): none Specimens/Packing Specimens Removed antrum, body, ge SHANE YOUNG DO January 05, 2022 10:44
[2022-01-05 10:45] VITALS: BP 134/67
[2022-01-05] MEDS ORDERED: PANT40TA2 PO (10:45)
--- NOTE | 2022-01-05 10:45 | Discharge Inst-Simple/Standard ---
Discharge Inst-Standard Discharge Medications New, Converted or Re-Newed RX: Transmitted to Pharmacy Patient Instructions/Follow Up Plan of Care/Instructions/FU: 2 weeks [place] Activity as Tolerated: Yes Discharge Diet: Regular Diet SHANE YOUNG DO January 05, 2022 10:45
[2022-01-05 10:55] VITALS: BP 137/57
[2022-01-05 11:20] VITALS: BP 123/67
--- NOTE | 2022-01-05 12:21 | Anesthesia-General Post-Op ---
MAC Patient Condition Mental Status/LOC: Same as Preop Cardiovascular: Satisfactory Nausea/Vomiting: Absent Respiratory: Satisfactory Pain: Controlled Complications: Absent Post Op Complications Complications None Follow Up Care/Instructions Patient Instructions None needed. Anesthesiology Discharge Order Discharge Order Patient is doing well, no complaints, stable vital signs, no apparent adverse anesthesia problems. No complications reported per nursing. DIANA BRITT CRNA January 05, 2022 12:21
--- NOTE | 2022-01-05 15:08 | OPERATIVE REPORT ---
DATE OF SERVICE: 01/05/2022 PREOPERATIVE DIAGNOSIS: Dysphagia. POSTOPERATIVE DIAGNOSIS: Gastritis. PROCEDURE: EGD with biopsy. SURGEON: Shane Hathaway DO ANESTHESIA: Per PALLIATIVE NURSE. ESTIMATED BLOOD LOSS: None. COMPLICATIONS: None. INDICATIONS: The patient is a 76-year-old female with dysphagia symptoms. She understands risks and benefits of procedure and wished to proceed. Consent was signed in the chart. DESCRIPTION OF PROCEDURE: The patient was taken to the endoscopy suite, placed in left lateral recumbent position. Timeout was performed. Scope was inserted in mouth, down the esophagus, stomach and into the duodenum without difficulty. No polyps, masses or ulcerations within the duodenum. Scope was slowly retracted back into the stomach, which had erythematous changes diffusely. Biopsy of the antrum and body were obtained. No polyps, masses or ulcerations. Scope was retroflexed noting no other pathology. Scope was returned to its normal position, slowly withdrawn to distal esophagus. Biopsy of GE junction was obtained. No polyps, masses or ulcerations. Scope was slowly retracted back until completely removed. The patient tolerated procedure well without any complications. She was taken to recovery room in stable condition. RECOMMENDATIONS: The patient will be started on Protonix 40 mg daily. Await biopsy results. We will see how her symptoms are doing at that time. Job ID: [id number] DocumentID: [id number] Dictated Date: 01/05/2022 10:47:37 Mid Level Clinician Date: 01/05/2022 15:07:27 Dictated By: SHANE HATHAWAY DO
== END 2022-01-05 11:28 ==
LOC: ENDO 08:18
PROVIDERS: ATTEND Surgery
DX: K29.50 Unspecified chronic gastritis without bleeding (principal); K20.90 Esophagitis, unspecified without bleeding; Z79.02 Long term (current) use of antithrombotics/antiplatelets
CPT/HCPCS: 82947

== ENCOUNTER 2022-02-28 17:47 | Emergency (ER) | payer MEDICARE, MEDICAID ==
[~2022-02-28] VITALS: Ht 162.5 cm; Wt 68.0 kg
[~2022-02-28 17:47] MED LIST changes: +PANT40TA2 PO
[2022-02-28 18:11] LABS: BASOPHILS % (AUTO) 0 % (0-10); EOSINOPHILS % (AUTO) 0 % (0-10); HEMATOCRIT 38 % (35-52); HEMOGLOBIN 11.4 g/dL (11.5-16.0); LYMPHOCYTES # (AUTO) 4.8 10^3/uL (1.0-4.0); LYMPHOCYTES % (AUTO) 32 % (12-44); MEAN CORPUSCULAR HEMOGLOBIN 29 pg (25-34); MEAN CORPUSCULAR HGB CONC 30 g/dL (32-36); MEAN CORPUSCULAR VOLUME 94 fL (80-99); MEAN PLATELET VOLUME 11.9 fL (9.0-12.2); MONOCYTES # (AUTO) 0.8 10^3/uL (0.0-1.0); MONOCYTES % (AUTO) 5 % (0-12); NEUTROPHILS # (AUTO) 9.2 10^3/uL (1.8-7.8); NEUTROPHILS % (AUTO) 62 % (42-75); PLATELET COUNT 327 10^3/uL (130-400); WHITE BLOOD COUNT 14.8 10^3/uL (4.3-11.0)
--- NOTE | 2022-02-28 18:14 | ED General ---
General Chief Complaint: Glucose Problems Stated Complaint: LOW BLOOD SUGAR Source of Information: EMS, Longterm Records History of Present Illness Date Seen by Provider: Feb 28, 2022 Time Seen by Provider: 18:00 Initial Comments PT ARRIVES VIA EMS FROM [facility] PT WITH LETHARGY AND NOT EATING FOR THE LAST 2-3 DAYS SENIOR [facility] VITALS: BP 78/40, HR 103, RR 16, O2 SAT 99% RA, TEMP 97.4 EMS VITALS:BP 107/63, HR 104, 92 SAT 99% RA, TEMP 97.9 PT WAS SITTING IN CHAIR WHEN EMS ARRIVED AT THE [facility], AND PT WAS LETHARGIC BLOOD GLUCOSE FOR EMS 28--EMS GAVE D10, REPEAT GLUCOSE BY EMS 207 GLUCOSE 375 ON ARRIVAL HERE PT WITH DEMENTIA, AND IS NORMALLY ORIENTED TO SELF ONLY AND NORMALLY IS CONSTANTLY YELLING PT IS ON PLAVIX FOR HX OF CVA PT IS ON METFORMIN FOR NIDDM PT IS DNR/DNI, AND SENIOR [facility]ARE HAS REPORTED THAT FAMILY IS CONSIDERING HOSPICE. PCP: DR. BROWN/[facility] Allergies and Home Medications Allergies Coded Allergies: morphine (Verified Allergy, Mild, 07/12/14) Sulfa (Sulfonamide Antibiotics) (Verified Allergy, Unknown, 03/15/06) Patient Home Medication List Clonazepam (Clonazepam) 1 Mg Tablet, 1 MG PO BID, (Reported) Entered as Reported by: FABIOLA OTTO on 12/28/21 1213 Clopidogrel Bisulfate (Clopidogrel) 75 Mg Tablet, 75 MG PO DAILY, (Reported) Entered as Reported by: ELY HAN on 09/13/20 0311 Furosemide (Furosemide) 40 Mg Tablet, 40 MG PO DAILY, (Reported) Entered as Reported by: JANEEN PARKER on 09/15/20 1046 Lactulose (Lactulose) 10 Gm/15 Ml Solution, 10 ML PO DAILY, (Reported) Entered as Reported by: CYNTHIA ASHLEY on 07/29/21 1108 Meloxicam (Meloxicam) 15 Mg Tablet, 15 MG PO DAILY, (Reported) Entered as Reported by: CYNTHIA ASHLEY on 07/29/21 1108 Menthol (Biofreeze) 118 Ml Gel..ml., 1 APPLIC TP DAILY, (Reported) Entered as Reported by: CYNTHIA ASHLEY on 07/29/21 1108 Metformin HCl (Metformin HCl) 1,000 Mg Tablet, 1,000 MG PO BID, (Reported) Entered as Reported by: CYNTHIA ASHLEY on 07/29/21 1108 Mirtazapine (Mirtazapine) 30 Mg Tablet, 30 MG PO HS, (Reported) Entered as Reported by: FABIOLA OTTO on 12/28/21 1213 Pantoprazole Sodium (Protonix) 40 Mg Tablet.dr, 40 MG PO DAILY Prescribed by: SHANE YOUNG on 01/05/22 1045 Venlafaxine HCl (Effexor Xr) 150 Mg Cap.er.24h, 150 MG PO DAILY, (Reported) Entered as Reported by: FABIOLA OTTO on 12/28/21 1213 Review of Systems Review of Systems Constitutional: other (PT UNABLE TO ANSWER ANY QUESTIONS) Past Kkftxxn-Ohduqf-Fhlhtq Hx Immunizations Up To Date Tetanus Booster (TDap): More than 5yrs PED Vaccines UTD: No First/Initial COVID19 Vaccinat: SEPTEMBER 2020 Second COVID19 Vaccination Chris: OCTOBER 2020 Third COVID19 Vaccination Date: NO Seasonal Allergies Seasonal Allergies: No Past Medical History Surgeries: Yes (left knee, RENAL STENTS PLACEMENT, ESWL) Coronary Stent, Orthopedic Respiratory: No Cardiac: Yes Coronary Artery Disease, Heart Attack, High Cholesterol, Hypertension Neurological: No Reproductive Disorders: No Sexually Transmitted Disease: No Genitourinary: Yes Bladder Infection, Kidney Stones Gastrointestinal: No Musculoskeletal: Yes Arthritis Endocrine: Yes Diabetes, Non-Insulin dep HEENT: No Cancer: No Psychosocial: No Integumentary: No Blood Disorders: No Adverse Reaction/Blood Tranf: No Family Medical History Cardiovascular disease 19 FATHER (AND LUNG CANCER) Physical Exam Vital Signs Vital Signs - First Documented 02/28/22 02/28/22 17:53 18:20 Temp 35.7 Pulse 105 Resp 25 B/P (MAP) 133/61 (85) Pulse Ox 99 O2 Delivery Nasal Cannula O2 Flow Rate 1.50 Capillary Refill : Height, Weight, BMI Height: 5'2.00" Weight: 215lbs. oz. 97.195206lh; 25.96 BMI Method:Stated General Appearance: Other (LETHARGIC, CHRONICALLY ILL APPEARING. PT IS NOT TALKING OR FOLLOWING COMMANDS) Progress/Results/Core Measures Suspected Sepsis SIRS Temperature: Pulse: Respiratory Rate: Laboratory Tests 02/28/22 17:57: White Blood Count 14.8H Blood Pressure / Mean: Laboratory Tests 02/28/22 17:57: Creatinine 7.45H, Platelet Count 327, Total Bilirubin 0.6 Results/Orders Lab Results Laboratory Tests Test 02/28/22 17:57 02/28/22 18:06 02/28/22 18:20 02/28/22 18:42 Range/Units White Blood Count 14.8 H 4.3-11.0 10^3/uL Red Blood Count 3.99 3.80-5.11 10^6/uL Hemoglobin 11.4 L 11.5-16.0 g/dL Hematocrit 38 35-52 % Mean Corpuscular Volume 94 80-99 fL Mean Corpuscular Hemoglobin 29 25-34 pg Mean Corpuscular Hemoglobin Concent 30 L 32-36 g/dL Red Cell Distribution Width 17.9 H 10.0-14.5 % Platelet Count 327 130-400 10^3/uL Mean Platelet Volume 11.9 9.0-12.2 fL Immature Granulocyte % (Auto) 1 % Neutrophils (%) (Auto) 62 42-75 % Lymphocytes (%) (Auto) 32 12-44 % Monocytes (%) (Auto) 5 0-12 % Eosinophils (%) (Auto) 0 0-10 % Basophils (%) (Auto) 0 0-10 % Neutrophils # (Auto) 9.2 H 1.8-7.8 10^3/uL Lymphocytes # (Auto) 4.8 H 1.0-4.0 10^3/uL Monocytes # (Auto) 0.8 0.0-1.0 10^3/uL Eosinophils # (Auto) 0.0 0.0-0.3 10^3/uL Basophils # (Auto) 0.0 0.0-0.1 10^3/uL Immature Granulocyte # (Auto) 0.1 0.0-0.1 10^3/uL Neutrophils % (Manual) 59 % Lymphocytes % (Manual) 35 % Monocytes % (Manual) 6 % Elliptocytes MODERATE Sodium Level 155 H 135-145 MMOL/L Potassium Level 6.4 H 3.6-5.0 MMOL/L Chloride Level 112 H 98-107 MMOL/L Carbon Dioxide Level 8 *L 21-32 MMOL/L Anion Gap 35 H 5-14 MMOL/L Blood Urea Nitrogen 147 *H 7-18 MG/DL Creatinine 7.45 H 0.60-1.30 MG/DL Estimat Glomerular Filtration Rate 5 BUN/Creatinine Ratio 20 Glucose Level 29 *L 172 H 70-105 MG/DL Calcium Level 10.4 H 8.5-10.1 MG/DL Corrected Calcium 10.2 H 8.5-10.1 MG/DL Magnesium Level 1.7 1.6-2.4 MG/DL Total Bilirubin 0.6 0.1-1.0 MG/DL Aspartate Amino Transf (AST/SGOT) 22 5-34 U/L Alanine Aminotransferase (ALT/SGPT) 36 0-55 U/L Alkaline Phosphatase 73 40-136 U/L Total Protein 7.3 6.4-8.2 GM/DL Albumin 4.3 3.2-4.5 GM/DL Amylase Level 88 25-125 U/L Lipase 104 H 8-78 U/L Beta-Hydroxybutyrate (Chem panel) 5.72 H 0.00-0.27 MMOL/L Procalcitonin 0.26 H <0.10 NG/ML Influenza Type A (RT-PCR) Not Detected Not Detecte Influenza Type B (RT-PCR) Not Detected Not Detecte SARS-CoV-2 RNA (RT-PCR) Not Detected Not Detecte Urine Color YELLOW Urine Clarity SL CLOUDY Urine pH 7.5 5-9 Urine Specific Sun 1.015 L 1.016-1.022 Urine Protein 1+ H NEGATIVE Urine Glucose (UA) NEGATIVE NEGATIVE Urine Ketones NEGATIVE NEGATIVE Urine Nitrite NEGATIVE NEGATIVE Urine Bilirubin NEGATIVE NEGATIVE Urine Urobilinogen 0.2 < = 1.0 MG/DL Urine Leukocyte Esterase 3+ H NEGATIVE Urine RBC (Auto) TRACE-I H NEGATIVE Urine RBC NONE /HPF Urine WBC 10-25 H /HPF Urine Squamous Epithelial Cells 5-10 /HPF Urine Crystals NONE /LPF Urine Bacteria LARGE H /HPF Urine Casts NONE /LPF Urine Mucus NEGATIVE /LPF Urine Culture Indicated YES My Orders Orders - YOLANDE TAVERAS DO Accucheck Stat ONCE (02/28/22 18:04) Ed Iv/Invasive Line Start (02/28/22 18:04) Ekg Tracing (02/28/22 18:04) Catheter(Urinary) Insert & Ass 03,15 (02/28/22 18:04) O2 (02/28/22 18:04) Monitor-Rhythm Ecg Trace Only (02/28/22 18:04) Amylase (02/28/22 18:04) Cbc With Automated Diff (02/28/22 18:04) Comprehensive Metabolic Panel (02/28/22 18:04) Lipase (02/28/22 18:04) Magnesium (02/28/22 18:04) Ua Culture If Indicated (02/28/22 18:04) Ed Iv/Invasive Line Start (02/28/22 18:04) D5 Ns 1000 Ml Iv Solution (Dextrose 5%/0 (02/28/22 18:15) Covid 19 Inhouse Test (02/28/22 18:04) Influenza A And B By Pcr (02/28/22 18:04) Isolation Central Supply Req (02/28/22 18:04) Procalcitonin (Pct) (02/28/22 18:04) Beta Hydroxybutyrate (02/28/22 18:04) Ct Head Wo-R/O Stroke (02/28/22 18:06) Manual Differential (02/28/22 17:57) Urine Culture (02/28/22 18:20) Glucose (02/28/22 18:49) Medications Given in ED Current Medications Medications Dose Ordered Sig/Sahra Route Start Time Stop Time Status Last Admin Dose Admin Dextrose/Sodium Chloride 1,000 ml @ 0 mls/hr Q0M ONCE IV 02/28/22 18:15 02/28/22 18:16 DC 02/28/22 18:32 120 MLS/HR Vital Signs/I&O 02/28/22 02/28/22 17:53 18:20 Temp 35.7 Pulse 105 Resp 25 B/P (MAP) 133/61 (85) Pulse Ox 99 99 O2 Delivery Nasal Cannula O2 Flow Rate 1.50 Capillary Refill : Progress Note : Progress Note PLACED IN ISOLATION ROOM PPE WORN COVID TESTING DONE Diagnostic Imaging Comments CT HEAD--PER RADIOLOGIST REPORT AT 1929 FINDINGS: There is prominence of the ventricles and sulci. There is no hydrocephalus or cerebral edema. There is no midline shift or mass-effect. There is no intracranial mass, hemorrhage, or extra-axial fluid collection. There is some diffuse decreased attenuation of the periventricular white matter which is nonspecific. The visualized paranasal sinuses and mastoid air cells are clear. There are no regional areas of decreased attenuation appreciated to suggest an acute CVA. IMPRESSION: 1. No acute intracranial process. 2. Age-appropriate atrophy. 3. Decreased attenuation of the periventricular white matter which is nonspecific, however, likely reflects senescent change and/or chronic small vessel ischemic disease. 4. If there is high clinical concern for an acute CVA, further evaluation with MRI should be considered. Reviewed: Reviewed by Me Departure Communication (Admissions) Family Conversation 1839--SPOKE WITH PT'S . HE STATES HE WAS AT THE [facility]IOR [facility]ARE EARLIER AND IS NOW HOME. ADVISED HIM OF HER CRITICAL CONDITION AND THAT SHE LIKELY WOULD NOT SURVIVE THIS AND I BELIEVE SHE IS IN THE PROCESS OF DYING. DISCUSSED COMFORT CARE/HOSPICE AND HIS RESPONSE IS "I CAN'T DO ANYTHING FOR HER". HE STATES HE IS NOT PLANNING ON COMING TO THE HOSPITAL. HE VERIFIES THAT PT IS DNR/DNI 1929--PT'S AND FEMALE FAMILY MEMBER HERE WITH PT. UPDATED THEM ON PT'S CONDITION AND PLAN TO SEND BACK TO SENIOR CARE WITH COMFORT MEASURES. THEY AGREE WITH PLAN OF CARE Impression Primary Impression: Acute renal failure Additional Impressions: Severe diabetic hypoglycemia Hyperkalemia UTI (urinary tract infection) Non-insulin dependent diabetes mellitus Disposition: 03 SNF Condition: Stable/Unchanged Departure-Patient Inst. Decision time for Depature: 19:10 Referrals: ALEXA BROWN MD (PCP) Primary Care Physician YARIEL MART (Family) Primary Care Physician Patient Instructions: Palliative Care Add. Discharge Instructions: COMFORT CARE/PALLIATIVE CARE PROTOCOLS STOP PLAVIX, LASIX, METFORMIN, VENLAFAXINE. DR. BROWN FOR FURTHER ORDERS All discharge instructions reviewed with patient and/or family. Voiced understan venkata. YOLANDE TAVERAS DO Feb 28, 2022 18:14
[2022-02-28] MEDS ORDERED: D5 NS 1000 ML IV SOLUTION 1,000 ML IV ONE (18:15)
[2022-02-28 18:18] LABS: ALBUMIN 4.3 GM/DL (3.2-4.5); POTASSIUM 6.4 MMOL/L (3.6-5.0)
[2022-02-28 18:20] LABS: CALCIUM 10.4 MG/DL (8.5-10.1)
[2022-02-28 18:21] LABS: TOTAL PROTEIN 7.3 GM/DL (6.4-8.2)
[2022-02-28 18:22] LABS: BILIRUBIN,TOTAL 0.6 MG/DL (0.1-1.0)
[2022-02-28 18:24] LABS: CREATININE SERUM 7.45 MG/DL (0.60-1.30)
[2022-02-28 18:27] LABS: MAGNESIUM 1.7 MG/DL (1.6-2.4)
[2022-02-28 18:31] LABS: BILIRUBIN,URINE NEGATIVE (NEGATIVE); CLARITY,URINE SL CLOUDY; COLOR,URINE YELLOW; GLUCOSE, URINE (UA) NEGATIVE (NEGATIVE); KETONES,URINE NEGATIVE (NEGATIVE); LEUKOCYTE ESTERASE ,URINE 3+ (NEGATIVE); NITRITE,URINE NEGATIVE (NEGATIVE); PH,URINE 7.5 (5-9); PROTEIN,URINE 1+ (NEGATIVE)
[2022-02-28 18:34] LABS: ELLIPT/OVALOCYTES MODERATE; LYMPHOCYTES % (MANUAL) 35 %; MONOCYTES % (MANUAL) 6 %; NEUTROPHILS % (MANUAL) 59 %
[2022-02-28 18:38] LABS: BACTERIA,URINE LARGE /HPF
--- NOTE | 2022-02-28 19:26 | Diagnostic Imaging Report ---
PROCEDURE: CT head wo r/o stroke. TECHNIQUE: Multiple contiguous axial images were obtained through the brain without the use of intravenous contrast. Auto Exposure Controls were utilized during the CT exam to meet ALARA standards for radiation dose reduction. INDICATION: Lethargy. COMPARISON: Prior examination from 07/28/2021. FINDINGS: There is prominence of the ventricles and sulci. There is no hydrocephalus or cerebral edema. There is no midline shift or mass-effect. There is no intracranial mass, hemorrhage, or extra-axial fluid collection. There is some diffuse decreased attenuation of the periventricular white matter which is nonspecific. The visualized paranasal sinuses and mastoid air cells are clear. There are no regional areas of decreased attenuation appreciated to suggest an acute CVA. IMPRESSION: 1. No acute intracranial process. 2. Age-appropriate atrophy. 3. Decreased attenuation of the periventricular white matter which is nonspecific, however, likely reflects senescent change and/or chronic small vessel ischemic disease. 4. If there is high clinical concern for an acute CVA, further evaluation with MRI should be considered. Dictated by: Dictated on workstation # [id number]
[2022-02-28 20:45] VITALS: BP 108/51
== END 2022-02-28 20:46 ==
LOC: EDUNIT# 17:47 → ER 17:48
DX: E11.649 Type 2 diabetes mellitus with hypoglycemia without coma (principal); N17.9 Acute kidney failure, unspecified; N39.0 Urinary tract infection, site not specified; E87.5 Hyperkalemia; F03.90 Unspecified dementia, unspecified severity, without behavioral disturbance, psychotic disturbance, mood disturbance, and anxiety; Z79.84 Long term (current) use of oral hypoglycemic drugs; Z86.73 Personal history of transient ischemic attack (TIA), and cerebral infarction without residual deficits; Z79.02 Long term (current) use of antithrombotics/antiplatelets; Z20.822 Contact with and (suspected) exposure to COVID-19
CPT/HCPCS: 36415; 51702; 70450; 80053; 81000; 82010; 82150; 82947; 83690; 83735; 84145; 85007; 85027; 87088; 87636; 93005; 93041